=== PATIENT | female | born 1945 | race Caucasian/White ===

== ENCOUNTER → 2018-12-24 | Outpatient (CLI) | payer MEDICARE ==
--- NOTE | 2019-01-04 11:32 | MM ---
Reason for exam: screening (asymptomatic). Last mammogram was performed 3 years and 1 month ago. History: Family history of breast cancer in cousin and breast cancer in aunt. Lumpectomy of the left breast, 1998. Physical Findings: A clinical breast exam by your physician is recommended on an annual basis and results should be correlated with mammographic findings. MG 3D Screening Mammo W/Cad Bilateral CC and MLO view(s) were taken. Prior study comparison: December 07, 2015, mammogram, performed at [place]. December 25, 2012, mammogram, performed at [place]. There are scattered fibroglandular densities. Stable benign calcifications. There is no discrete abnormality. Stable post operative distortion left breast. No significant changes when compared with prior studies. ASSESSMENT: Benign, BI-RAD 2 RECOMMENDATION: Routine screening mammogram of both breasts in 1 year.
== END | disposition home or self-care (01) ==
LOC: RADMAMWWP 13:24
PROVIDERS: ATTEND Internal Medicine
DX: Z12.31 Encounter for screening mammogram for malignant neoplasm of breast (principal)
CPT/HCPCS: 77063; 77067

== ENCOUNTER → 2019-02-19 | Outpatient (CLI) | payer MEDICARE ==
--- NOTE | 2019-02-19 12:48 | XR ---
EXAMINATION TYPE: XR lumbar spine 2 or 3V DATE OF EXAM: 02/19/2019 CLINICAL HISTORY: pain TECHNIQUE: Three views of the lumbar spine are submitted. COMPARISON: None. FINDINGS: There are 5 lumbar type vertebral bodies identified. The lumbar spine shows satisfactory alignment w ithout evidence of acute fracture or dislocation. Vertebral body heights are within normal limits. Severe degenerative disc space narrowing with endplate sclerosis and spondylosis. Severe facet joint arthropathy. Mild curvature convex to the left. The overlying soft tissue appears unremarkable. IMPRESSION: No acute fracture or dislocation is seen in the lumbar spine. ICD 10 NO FRACTURE, INITIAL EVALUATION
--- NOTE | 2019-02-19 12:50 | XR ---
EXAMINATION TYPE: XR cervical spine comp DATE OF EXAM: 02/19/2019 CLINICAL HISTORY: pain COMPARISON: NONE TECHNIQUE: Frontal, lateral, oblique, swimmers, and open mouth view of the cervical spine are obtaine d. FINDINGS: The cervical spine is visualized in its entirety from C1 thru the top of T1 level. It is s atisfactory in alignment without evidence of acute fracture or dislocation. The pre-vertebral soft t issue appears within normal limits. Moderate degenerative disc space narrowing C4-5 through C6-7. Evert tral and dorsal spondylosis. Mild foraminal encroachment at C5-6 on the right. The C1-C2 articulation is unremarkable on the open mouth view. IMPRESSION: No acute fracture or dislocation is seen in the cervical spine.ICD 10 NO FRACTURE, INITI AL EVALUATION
== END | disposition home or self-care (01) ==
LOC: RADXRMAIN 12:12
PROVIDERS: ATTEND Internal Medicine
DX: M47.897 Other spondylosis, lumbosacral region (principal); M47.892 Other spondylosis, cervical region
CPT/HCPCS: 72050; 72100

== ENCOUNTER → 2019-03-12 | Outpatient (CLI) | payer MEDICARE ==
--- NOTE | 2019-03-12 15:15 | MR ---
EXAMINATION TYPE: MR cervical spine wo con DATE OF EXAM: 03/12/2019 COMPARISON: Cervical spine x-ray dated 02/19/2019 HISTORY: Spondylosis cervical region TECHNIQUE: Multiplanar, multisequence images of the cervical spine were acquired. FINDINGS: Cervical spine vertebral bodies heights and alignment are maintained. The cervical cord sig nal is within normal limits. Multilevel disc desiccation is seen. No prevertebral soft tissue swellin g. C2-C3: There is a small broad-based disc bulge without spinal canal stenosis nor neural foraminal lolis rowing. C3-C4: There is a left paracentral disc herniation with uncovertebral hypertrophy and facet arthropat hy contributing to mild to moderate left neural foraminal narrowing and mild spinal canal stenosis. N o right neural foraminal narrowing. C4-C5: There is a broad-based disc bulge narrowing the ventral subarachnoid space in combination with uncovertebral hypertrophy and facet arthropathy creating moderate right neural foraminal narrowing a nd mild left neural foraminal narrowing as well as mild spinal canal stenosis. C5-C6: There is a broad-based disc bulge narrowing the ventral subarachnoid space. This in combinatio n with facet arthropathy and ligamentum flavum buckling create severe left neural foraminal narrowing and mild right neural foraminal narrowing as well as mild spinal canal stenosis. C6-C7: There is a broad-based disc bulge examination with uncovertebral hypertrophy and facet arthrop athy creating mild bilateral neural foraminal narrowing without spinal canal stenosis. C7-T1: There is a central disc herniation slightly narrowing the ventral subarachnoid space without s tracy canal stenosis nor neural foraminal narrowing. IMPRESSION: 1. Small central disc herniation at C7-T1 without spinal canal stenosis nor neural foraminal narrowin g. 2. Left paracentral disc herniation at C3-C4 with degenerative change creating mild to moderate left neural foraminal narrowing and mild spinal canal stenosis. 3. Degenerative disc disease create mild spinal canal stenosis at C4-C5 and C5-C6 as well as variable degrees of neural foraminal narrowing.
== END | disposition home or self-care (01) ==
LOC: RADMRIMAIN 11:10
PROVIDERS: ATTEND Internal Medicine
DX: M48.02 Spinal stenosis, cervical region (principal); M50.21 Other cervical disc displacement, high cervical region; M50.321 Other cervical disc degeneration at C4-C5 level
CPT/HCPCS: 72141

== ENCOUNTER → 2019-03-25 | Outpatient (CLI) | payer MEDICARE ==
[2019-03-25 11:29] VITALS: BP 127/84; PULSE 86; RESP 16
--- NOTE | 2019-03-25 15:00 | P.PAINCN ---
History of Present Illness - Reason for Consult Consult date: 03/25/19 - History of Present Illness initial consultation visit for this 73 years old female with a two-month history of severe neck pain, with radiation to the upper extremity associated with severe numbness and tingling sensation, she denies any initiating event, also patient complaining of some low back pain with radiation to the lower extremity associated with numbness and tingling sensation, the symptoms is constant and increases with any activity, she denies any history of trauma or accident no history of heavy lifting, she is able to ambulate, but she reported that her current symptoms is interfering with her quality of life , and she is using currently pain medication Mendon 5/325 twice a day and she continues to use Cymbalta 60 mg twice a day , she denies any side effect of the medication Past Medical History Past Medical History: Cancer, Fibromyalgia, Hyperlipidemia, Hypertension, Osteoarthritis (OA), Pulmonary Embolus (PE) Additional Past Medical History / Comment(s): Breast Ca 1997, PE 4 yrs. 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 History of Any Multi-Drug Resistant Organisms: None Reported Past Surgical History: Breast Surgery, Cholecystectomy, Orthopedic Surgery Additional Past Surgical History / Comment(s): left breast Lumpectomy; Knee arthroscopy, cataracts removed Past Anesthesia/Blood Transfusion Reactions: No Reported Reaction Past Psychological History: Depression Smoking Status: Current some day smoker Past Alcohol Use History: Occasional Additional Past Alcohol Use History / Comment(s): occasional cigarette Past Drug Use History: None Reported - Past Family History Mother Family Medical History: Cancer Father Family Medical History: Cancer Medications and Allergies Home Medications Medication Instructions Recorded Confirmed Type Atorvastatin [Lipitor] 10 mg PO DAILY 05/09/15 03/25/19 History Lisinopril [Zestril] 10 mg PO DAILY 05/09/15 03/25/19 History Omeprazole 20 mg PO DAILY 05/10/15 03/25/19 History B12/Levomefolate Calcium/B-6 1 each PO DAILY 03/24/19 03/25/19 History [Foltx Tablet] Cholecalciferol (Vitamin D3) 5,000 unit PO DAILY 03/24/19 03/25/19 History [Vitamin D3] DULoxetine HCL [Cymbalta] 60 mg PO DAILY 03/24/19 03/25/19 History Hydroxychloroquine Sulfate 200 mg PO DAILY 03/24/19 03/25/19 History [Plaquenil] Magnesium Oxide [Mag-Ox] 400 mg PO BID 03/24/19 03/25/19 History Metoprolol Tartrate [Lopressor] 25 mg PO BID 03/24/19 03/25/19 History Rivaroxaban [Xarelto] 15 mg PO DAILY 03/24/19 03/25/19 History traZODone HCL 50 mg PO HS PRN 03/24/19 03/25/19 History HYDROcodone/APAP 5-325MG [Mendon 1 tab PO BID PRN 03/25/19 03/25/19 History 5-325] Allergies Allergy/AdvReac Type Severity Reaction Status Date / Time No Known Allergies Allergy Verified 03/25/19 10:55 Physical Exam Vitals: Vital Signs Pulse Resp BP Pulse Ox 03/25/19 10:57 86 16 127/84 93 L Social history : smoker , NO ETOH , NO Illegal drugs use . Review of Systems : - Constitutional : no chills , no fever , no night sweats , - Ears : no ear discharge , no change in hearing -Nose, Mouth ,Throat ; no bleeding gums, no sore throat , no epistaxis , -Cardiovascular : Denies chest pain, , no orthopnea , no palpitation -Respiratory : Denies cough , no dyspnea , no hemoptysis -Gastrointestinal : no change in bowel habits , no coffee-ground emesis . -Genitourinary : No hematuria , no discharge , no incontinence, -Musculoskeletal : No gait dysfunction , report neck pain and numbneness , - Neurological : no ataxia , no tremor , no sezure , -Psychatric : no suicidal ideation no hallucination - Endocrine : no cold intolerence , no polyuria , no polydypsia , -Hematologic : no easy bleeding , no easy brusing , -Allergic / immm : no angioedema , no wheezing ,no allergic rhinitis -Integumentary : no brttle nails , no change hair / nails , no foot/leg ulcers . Physical Examinations : -Constitutional : Cooperative , not in acute distress . -HEENT : nech ; supple , no Lymphadenopathy , no Thyromegaly , :eyes : no icterus, no photophobia . : ENT normal oropharynx , no Thrush - Respiratory : Chest clear to auscultations Bilaterally , no wheezing . - Cardiovascular : regular rate and rhythem , S1 , S2 , no S3 , no S4. - Gastrointestina l: abdomen soft no tenderness , no organomegally . - Genitourinary : Defferred . -Integumentary : No cellulitis , no ulcers , normal skin turgor , no cyanotic . - neurologic : Cranial nerve II to XII intact , no focal neurological deffecit -psychatric : alert , oriented X 3 , appropriate affect , intact judgment and insight . -Lymphatic : no Lymphadenopathy. - musculoskeltal: Antalgic gait Cervical Spine motor stregnth in the deltoid and biceps, normal right side , normal Left side motor stregnth biceps and the wrist extensors normal right side ,normal left side . motor stregnth in the triceps muscle . normal Right side , normal Left side deep tendon reflexes normal at the biceps , normal at Brachioradialis , normal at triceps. Spurling test = positive Neck distraction test= positive Hancock sign= positive positive cervical facet loading test . Lumber spine moter stegnth lower extremities ,thigh and legs 5/5 Right side , 5/5 Left side deep tendon reflexes : normal Knee Jerk , normal ankle Jerk positive lumber facet Loading Test Range of motion of the lumbar spine Flexion 30 degrees, extension 10 degrees strait leg raising test , positive at 30 degree Fabere test positive RT and positive LT . Results Comments: MRI of the cervical spine multilevel disc herniation at C3-C4 and C4 5 disc bulging and facet arthropathy C5 6 disc bulging and facet joint hypertrophy and C6 7 disc herniation and multilevel canal stenosis. Assessment and Plan Plan: Assessment and plan=1-cervical radiculopathy. 2-cervical disc herniation. 3- cervical spondylosis with cervical facet arthropathy 4-lumbar radiculopathy Patient could benefit from cervical epidural steroid injections under fluoroscopy guidance at C7-T1 Patient currently on Xarelto because she had a history of PE , we have to Xarelto for 3 days before we can proceed with the procedure, have to get approval from her primary care doctor.Josephine , also patient could benefit from Lyrica 25 mg twice a day prescription for that given Time with Patient: Greater than 30 PQRS Measure Charge Sheet Measure #130: Documentation of Current Meds in Medical Chart: Patient's medications documented in chart Measure #226: Tobacco Use: Screen & Cessation Intervention: Pt screened for tobacco use AND intervention given Measure #111: Pneumonia Vaccination: Pneumococcal vaccine administered or previously received Measure #47: Advance Care Plan: Advance care planning discussed & documented, pt chose/unable to give Measure #412: Opioid Treatment Agreement: No documentation of signed opioid treatment agreement Measure #408: Opioid Therapy Follow-up Evaluation: Patient had NO f/u eval minimum every 3 months during opioid therapy Measure #317: Preventitive Care & Scrn High Bld Press & F/U: Normal blood pressure, f/u not required Measure #128: Body Mass Index (BMI) Screening & Follow-up: BMI documented ABOVE normal parameters - f/u documented Measure #131: Pain Assessment & Follow-up: Pain positive & plan documented, Follow-up scheduled Measure #431: Unhealthy Alcohol Use Preventative Care & Scrn: Patient not identified as an unhealthy alcohol user PQRS Narrative: Smoking Status Current some day smoker Blood Pressure 127/84 Pain Intensity [Neck] 7 Scale Used Numeric (1 - 10) Hx Alcohol Use (MH) Yes Home Medications: Ambulatory Orders Atorvastatin [Lipitor] 10 mg PO DAILY 05/09/15 Lisinopril [Zestril] 10 mg PO DAILY 05/09/15 Omeprazole 20 mg PO DAILY 05/10/15 B12/Levomefolate Calcium/B-6 [Foltx Tablet] 1 each PO DAILY 03/24/19 Cholecalciferol (Vitamin D3) [Vitamin D3] 5,000 unit PO DAILY 03/24/19 DULoxetine HCL [Cymbalta] 60 mg PO DAILY 03/24/19 Hydroxychloroquine Sulfate [Plaquenil] 200 mg PO DAILY 03/24/19 Magnesium Oxide [Mag-Ox] 400 mg PO BID 03/24/19 Metoprolol Tartrate [Lopressor] 25 mg PO BID 03/24/19 Rivaroxaban [Xarelto] 15 mg PO DAILY 03/24/19 traZODone HCL 50 mg PO HS PRN 03/24/19 HYDROcodone/APAP 5-325MG [Mendon 5-325] 1 tab PO BID PRN 03/25/19
== END ==
LOC: PNWHC3 10:29
PROVIDERS: ATTEND Specialist
DX: M50.11 Cervical disc disorder with radiculopathy, high cervical region (principal); M47.22 Other spondylosis with radiculopathy, cervical region; M46.92 Unspecified inflammatory spondylopathy, cervical region; M54.16 Radiculopathy, lumbar region; F17.200 Nicotine dependence, unspecified, uncomplicated; E78.5 Hyperlipidemia, unspecified; I10 Essential (primary) hypertension; M79.7 Fibromyalgia; M19.90 Unspecified osteoarthritis, unspecified site; F32.9 Major depressive disorder, single episode, unspecified; Z86.711 Personal history of pulmonary embolism; Z71.6 Tobacco abuse counseling; Z85.9 Personal history of malignant neoplasm, unspecified; Z79.899 Other long term (current) drug therapy; Z79.01 Long term (current) use of anticoagulants
CPT/HCPCS: 99211

== ENCOUNTER 2019-04-07 08:25 | Day surgery (SDC) | payer MEDICARE ==
[2019-03-31 14:28] VITALS: BMI 29.9
[2019-04-07] MEDS ORDERED: LACTATED RINGERS 1,000 ML IV SCH (09:02)
[2019-04-07 09:09] VITALS: TEMP 97.2
--- NOTE | 2019-04-07 10:04 | P.PCN ---
Date of Procedure: 04/07/19 Procedure(s) Performed: PREOPERATIVE DIAGNOSIS: Cervical radiculopathy Cervical degenerative disc disease POSTOPERATIVE DIAGNOSIS: Cervical radiculopathy Cervical degenerative disc disease PROCEDURE Cervical Epidural steroid injection under fluoroscopic guidance at the C7-T1 interspace using right paramedian approach Cervical epidurogram ANESTHESIA: Local with 1% lidocaine 3 ml and IV sedation with Versed 2 mg and 100 g of fentanyl EBL: Minimal PROCEDURE INDICATION: The patient presents with cervical radicular symptoms unresponsive to conservative treatment. This is her second cervical epidural steroid injection. She reports significant relief of her symptoms from her first 2 injections. PROCEDURE DESCRIPTION / TECHNIQUE: The patient was seen and identified in the preoperative area. Risks, benefits, complications including but not limited to infections ,bleeding ,allergic reaction to the medications ,nerve damage and incomplete pain relief, and alternatives were discussed with the patient. The patient agreed to proceed with the procedure and signed the consent. IV was started, and vital signs were stable. Patient was taken to the OR and time out was completed. The patient was placed in the prone position on procedure table and a pillow was placed under the ch est area.. The cervical area was prepped and draped in the usual sterile fashion. Conscious sedation was used during the procedure to decrease patients anxiety. Vital signs was monitored during the entire procedure. Using anterior-posterior fluoroscopy, the C7-T1 interlaminar space was identified and the skin over this site was marked and then infiltrated with 1% lidocaine subcutaneously. Subsequently, a 20-gauge Tuohy epidural needle was inserted and advanced toward the epidural space using the loss of resistance technique and guided by AP and 50 oblique fluoroscopy. The correct needle p osition in the epidural space was verified. Initial aspiration revealed heme which was also present on injection of contrast. The needle was withdrawn and repositioned and the epidural space was reentered. After negative aspiration for blood and CSF and in the absence of paresthesias, Isovue 200 2 mL's was injected under live fluoroscopy with good epidural spread. After negative aspiration, a 5 ml mixture containing 10 mg of dexamethasone, 3 mL of preservative free normal saline and 1 mL of 1% lidocaine was injected. Needle was withdrawn intact, skin was cleansed, and bandages were applied. COMPLICATIONS: None DISPOSITION / PLANS: The patient was placed in a supine position and transferred to the recovery area in a stable condition for observation. There was no evidence of lower extremity motor or sensory deficit after the procedure. Patient was discharged from the recovery room after meeting discharge criteria. Home discharge instructions were given to the patient by the staff. The patient will schedule a repeat procedure in 4 weeks.
[2019-04-07] MEDS ORDERED: IV FLUID CONTINUATION 1,000 ML IV ONE ×2 (10:13)
[2019-04-07 10:29] VITALS: BP 150/88; PULSE 80; RESP 18
--- NOTE | 2019-04-07 10:31 | FL ---
EXAMINATION TYPE: FL guided pain mgmt statistic DATE OF EXAM: 04/07/2019 CLINICAL HISTORY: Neck and back pain. TECHNIQUE: Fluoroscopy. COMPARISON: None. FINDINGS: Fluoroscopic guidance was provided during pain relief procedure performed by Dr. Vaz. A t otal of 13 seconds of fluoroscopic time was utilized during the procedure and 5 spot images are acqui red. Images acquired shows needle localization with contrast injection near cervical thoracic juncti on. IMPRESSION: As Above.
== END 2019-04-07 10:50 | disposition home or self-care (01) ==
LOC: ORPAIN 08:25
PROVIDERS: ATTEND Anesthesiology
DX: M50.10 Cervical disc disorder with radiculopathy, unspecified cervical region (principal); M47.22 Other spondylosis with radiculopathy, cervical region; M54.16 Radiculopathy, lumbar region; M79.7 Fibromyalgia; E78.5 Hyperlipidemia, unspecified; I10 Essential (primary) hypertension; M19.90 Unspecified osteoarthritis, unspecified site; Z86.711 Personal history of pulmonary embolism; Z85.3 Personal history of malignant neoplasm of breast; F32.9 Major depressive disorder, single episode, unspecified; F17.210 Nicotine dependence, cigarettes, uncomplicated; Z79.899 Other long term (current) drug therapy; Z79.01 Long term (current) use of anticoagulants
CPT/HCPCS: 62321; J2250; J1100; J3010; Q9966; 99152

== ENCOUNTER 2019-04-28 14:22 | Observation (INO) | payer MEDICARE ==
[2019-04-28] MEDS ORDERED: SODIUM CHLORIDE 0.9% 500 ML 500 ML IV STA (15:13)
[2019-04-28 15:25] LABS: Basophils # (A) 0.1 k/uL (0-0.2); Basophils % (A) 1 %; Eosinophils # (A) 0.1 k/uL (0-0.7); Eosinophils % (A) 2 %; HCT 43.2 % (34.0-46.0); HGB 14.5 gm/dL (11.4-16.0); Lymphocytes # (A) 2.7 k/uL (1.0-4.8); Lymphocytes % (A) 30 %; MCH 32.3 pg (25.0-35.0); MCHC 33.5 g/dL (31.0-37.0); MCV 96.4 fL (80.0-100.0); Mean Platelet Volume 6.6; Monocytes # (A) 0.7 k/uL (0-1.0); Monocytes % (A) 8 %; Neutrophils % (A) 57 %; Platelet Count 254 k/uL (150-450); RBC 4.48 m/uL (3.80-5.40); RDW 13.6 % (11.5-15.5); WBC 8.8 k/uL (3.8-10.6)
--- NOTE | 2019-04-28 15:25 | ED ---
General Adult HPI - General Chief complaint: Weakness Stated complaint: falling/weakness Time Seen by Provider: 04/28/19 14:40 Source: patient, family, RN notes reviewed Mode of arrival: wheelchair Limitations: no limitations - History of Present Illness Initial comments: Chief complaint and history of present illness is a 73-year-old female here with her brother. The patient reports for the past 3-4 months been having progressively worsening muscle aches and pains starting from her right cervical region down her right arm. She states she had an epidural shot just last week with no improvement. More recently i.e. over the past 3 months been having lumbar discomfort. Yesterday she was sitting in her wheelchair seat leaned forward and fell onto both knees. Complaining of pain to both knees and hips. Denies any injury or head or neck. Patient reports that she had get help to get up. Does not strong enough because of generalized weakness in her lower extremities to stand on her own. After she was helped to bed she was able to transfer from her bed to her chair from her chair to the toilet and back to bed again. - Related Data Home Medications Medication Instructions Recorded Confirmed Atorvastatin [Lipitor] 10 mg PO HS 05/09/15 04/28/19 Lisinopril [Zestril] 10 mg PO HS 05/09/15 04/28/19 Omeprazole 20 mg PO HS 05/10/15 04/28/19 B12/Levomefolate Calcium/B-6 1 tab PO HS 03/24/19 04/28/19 [Foltx Tablet] Cholecalciferol (Vitamin D3) 5,000 unit PO HS 03/24/19 04/28/19 [Vitamin D3] DULoxetine HCL [Cymbalta] 60 mg PO HS 03/24/19 04/28/19 Magnesium Oxide [Mag-Ox] 400 mg PO TID 03/24/19 04/28/19 Metoprolol Tartrate [Lopressor] 25 mg PO BID 03/24/19 04/28/19 Rivaroxaban [Xarelto] 15 mg PO HS 03/24/19 04/28/19 HYDROcodone/APAP 5-325MG [[place] 1 tab PO BID PRN 03/25/19 04/28/19 5-325] Diphenox-Atrop 2.5-0.025 mg 1 tab PO DIRECTED PRN 03/31/19 04/28/19 [Lomotil] traZODone HCL [Desyrel] 50 mg PO HS PRN 03/31/19 04/28/19 Pregabalin [Lyrica] 25 mg PO BID 04/28/19 04/28/19 Allergies Allergy/AdvReac Type Severity Reaction Status Date / Time No Known Allergies Allergy Verified 04/28/19 15:16 Review of Systems ROS Statement: Those systems with pertinent positive or pertinent negative responses have been documented in the HPI. Review of systems. Patient denies any headache or visual acuity changes she has chronic neck discomfort on the right side, the right arm and to the right hand complains of weakness in the right hand hard to hold things. This been ongoing for several months. She did have an epidural shot just several days ago. She's been following up with chronic pain management has been on Taylor without relief. The patient denies any difficulty swallowing no nausea no vomiting. She has low back pain across the whole lumbar section which goes equally down both legs. She states her knees hurt from falling on them yesterday complains of weakness occasional tingling occasional numbness. All systems are reviewed. Past medical problems significant for breast cancer 20 years ago treated with lumpectomy and radiation. She diagnosed with fibromyalgia 4 years ago by her family doctor. She's had GERD, hyperlipidemia hypertension. 7 from osteoarthritis, 4 years ago she had pulmonary embolus and she been on Xarelto since then. The patient has been diagnosed with an autoimmune disease without any specific mention other than that. Her surgeries as noted above lumpectomy, cholecystectomy, tonsillectomy, left knee arthroscopy, cataracts. The patient's family history significant for mother had pancreatic and melanoma. The patient's father had bladder cancer grandfather rectal carcinoma. Both she and her brother state they do get the colonoscopies regularly. The patient denies any ALLERGIES. She quit smoking 4 years ago. Drinks alcohol one vodka drink per day. ROS Other: All systems not noted in ROS Statement are negative. Past Medical History Past Medical History: Cancer, Fibromyalgia, GERD/Reflux, Hyperlipidemia, Hypertension, Osteoarthritis (OA), Pulmonary Embolus (PE) Additional Past Medical History / Comment(s): Breast Ca 1997, hx PE, neck pain down right arm, down spine & both legs, some kind of clotting gene per pt., migraines, IBS, History of Any Multi-Drug Resistant Organisms: None Reported Past Surgical History: Breast Surgery, Cholecystectomy, Orthopedic Surgery, Tonsillectomy Additional Past Surgical History / Comment(s): left breast Lumpectomy; left Knee arthroscopy, kip cataracts removed Past Anesthesia/Blood Transfusion Reactions: No Reported Reaction Past Psychological History: Anxiety, Depression Smoking Status: Former smoker - Past Family History Mother Family Medical History: Cancer Father Family Medical History: Cancer General Exam - General Exam Comments Initial Comments: General: The patient is awake and alert, here because of chronic weakness and new pain to her knees at hand: On her knees yesterday. Vital signs show temperature 97.9 pulse 95 respiratory rate 16 pulse ox 90% room air blood pressure 119/80. Eye: Pupils are equal, round and reactive to light, extra-ocular movements are intact; there is normal conjunctiva bilaterally. No signs of icterus. Evidence of bilateral cataract removed. Ears, nose, mouth and throat: There are moist mucous membranes and no oral lesions. Neck: Chronic right cervical neck discomfort no worse today than before. She has been seeing a pain management doctor and recently received a shot IV epidural without significant improvement. Cardiovascular: There is a regular rate and rhythm. No murmur, rub or gallop is appreciated. Respiratory: Lungs are clear to auscultation, respirations are non-labored, breath sounds are equal. No wheezes, stridor, rales, or rhonchi. Gastrointestinal: Soft, non-distended, non-tender abdomen without masses or organomegaly noted. There is no rebound or guarding present. No CVA tenderness. Bowel sounds are unremarkable. Back: Patient complains of pain across the lumbar spine from [id number] equally distributed down both legs with numbness and tingling to her feet she fell out of her wheelchair yesterday had difficulty getting up because of poor strength. Musculoskeletal: Weak flexion of her left ankle and foot. Lumbar pain, chronic with bilateral knee discomfort, swelling right knee negative for internal derangement by testing. Neurovascular status to the feet. Intact. No pitting edema noted. Neurological: Neurologically intact except for relative weakness with left ankle extension. Chronic lumbar pain, chronic right cervical pain. Complains of weakness and right hand. Environmental Compliance Specialist are equal bilaterally. Skin: Skin is warm and dry and no rashes or lesions are noted. Psychiatric: Cooperative, Limitations: no limitations Course Vital Signs 04/28/19 04/28/19 14:24 15:52 Temperature 97.9 F Pulse Rate 95 87 Respiratory 16 18 Rate Blood Pressure 119/80 O2 Sat by Pulse 98 95 Oximetry Medical Decision Making - Medical Decision Making Medical decision making; this is a 71-year-old female here for complaint of frequent falls, 3 times yesterday. Too weak to get off the floor on her own. Needed her brother's assistance. Gets around by a wheelchair states would not build walk without one. Labs show white count of 8.8 hemoglobin 14 hematocrit 43 with an INR 1.2. Potassium 4.0 with a BUN of 18 creatinine 01.05 the GFR 53. Glucose 106. Plasma lactic acid is normal at 1.2. TSH normal at 2.0. Troponin less than 0.012. X-ray of both knees was done and reviewed by radiologist his impression is no acute fracture dislocation. Correlate for crystal deposition arthropathy. X-rays of the pelvis was done reviewed by radiologist and his final impression is there is no acute fracture dislocation in the pelvis. As read by CT of the lumbar spine was done and reviewed by radiologist and his impression is; no vertebral compression collapse or malalignment. There is advanced degenerative disc disease throughout as well as heterotopic facet arthropathy and Jersey's disease. Variable mild spinal canal stenosis due to posterior dis c bulges. Variable neurao foraminal stenosis as outlined in the report, severe on the left L5-S1. Bile duct dilated 1.1 cm probably secondary to post cholecystectomy status plus patient age. This can be confirmed with a normal alkaline phosphatase and bilirubin levels. Tiny hiatal hernia and sigmoid diverticulosis. As read by Dr. Rodriguez These reports were shared with the patient and brother at bedside. Patient is requesting pain medication. She can't take Motrin or Toradol because of the blood thinner she's on for previous PE. The patient will receive Dilaudid 0.5 mg IV push Case discussed with Dr. Marino. Patient admitted to her service with consultation from orthopedic surgery, Dr. Conway. Admitting diagnosis is spinal stenosis or neurogenic claudication. She wants the patient to be on site Medrol 60 mg IV push every 6 hours. - Lab Data Result diagrams: 04/28/19 14:49 04/28/19 14:49 Lab Results 04/28/19 04/28/19 04/28/19 Range/Units 14:49 14:49 14:49 WBC 8.8 (3.8-10.6) k/uL RBC 4.48 (3.80-5.40) m/uL Hgb 14.5 (11.4-16.0) gm/dL Hct 43.2 (34.0-46.0) % MCV 96.4 (80.0-100.0) fL MCH 32.3 (25.0-35.0) pg MCHC 33.5 (31.0-37.0) g/dL RDW 13.6 (11.5-15.5) % Plt Count 254 (150-450) k/uL Neutrophils % 57 % Lymphocytes % 30 % Monocytes % 8 % Eosinophils % 2 % Basophils % 1 % Neutrophils # 5.0 (1.3-7.7) k/uL Lymphocytes # 2.7 (1.0-4.8) k/uL Monocytes # 0.7 (0-1.0) k/uL Eosinophils # 0.1 (0-0.7) k/uL Basophils # 0.1 (0-0.2) k/uL PT (9.0-12.0) sec INR (<1.2) APTT (22.0-30.0) sec Sodium 138 (137-145) mmol/L Potassium 4.0 (3.5-5.1) mmol/L Chloride 99 (98-107) mmol/L Carbon Dioxide 30 (22-30) mmol/L Anion Gap 9 mmol/L BUN 18 H (7-17) mg/dL Creatinine 1.05 H (0.52-1.04) mg/dL Est GFR (CKD-EPI)AfAm 61 (>60 ml/min/1.73 sqM) Est GFR (CKD-EPI)NonAf 53 (>60 ml/min/1.73 sqM) Glucose 106 H (74-99) mg/dL Plasma Lactic Acid Evert 1.2 (0.7-2.0) mmol/L Calcium 9.9 (8.4-10.2) mg/dL Total Bilirubin 0.8 (0.2-1.3) mg/dL AST 40 H (14-36) U/L ALT 36 (9-52) U/L Alkaline Phosphatase 105 (38-126) U/L Troponin I (0.000-0.034) ng/mL Total Protein 7.0 (6.3-8.2) g/dL Albumin 4.1 (3.5-5.0) g/dL TSH 2.050 (0.465-4.680) mIU/L 04/28/19 04/28/19 Range/Units 14:49 14:49 WBC (3.8-10.6) k/uL RBC (3.80-5.40) m/uL Hgb (11.4-16.0) gm/dL Hct (34.0-46.0) % MCV (80.0-100.0) fL MCH (25.0-35.0) pg MCHC (31.0-37.0) g/dL RDW (11.5-15.5) % Plt Count (150-450) k/uL Neutrophils % % Lymphocytes % % Monocytes % % Eosinophils % % Basophils % % Neutrophils # (1.3-7.7) k/uL Lymphocytes # (1.0-4.8) k/uL Monocytes # (0-1.0) k/uL Eosinophils # (0-0.7) k/uL Basophils # (0-0.2) k/uL PT 12.1 H (9.0-12.0) sec INR 1.2 H (<1.2) APTT 34.2 H (22.0-30.0) sec Sodium (137-145) mmol/L Potassium (3.5-5.1) mmol/L Chloride (98-107) mmol/L Carbon Dioxide (22-30) mmol/L Anion Gap mmol/L BUN (7-17) mg/dL Creatinine (0.52-1.04) mg/dL Est GFR (CKD-EPI)AfAm (>60 ml/min/1.73 sqM) Est GFR (CKD-EPI)NonAf (>60 ml/min/1.73 sqM) Glucose (74-99) mg/dL Plasma Lactic Acid Evert (0.7-2.0) mmol/L Calcium (8.4-10.2) mg/dL Total Bilirubin (0.2-1.3) mg/dL AST (14-36) U/L ALT (9-52) U/L Alkaline Phosphatase (38-126) U/L Troponin I <0.012 (0.000-0.034) ng/mL Total Protein (6.3-8.2) g/dL Albumin (3.5-5.0) g/dL TSH (0.465-4.680) mIU/L Disposition Clinical Impression: Spinal stenosis, lumbar region with neurogenic claudication Disposition: ADMITTED IP TO THIS [facility] Condition: Serious Is patient prescribed a controlled substance at d/c from ED?: No Referrals: Jayden Burton MD [Primary Care Provider] - 1-2 days
[2019-04-28 15:33] LABS: Albumin 4.1 g/dL (3.5-5.0); Calcium 9.9 mg/dL (8.4-10.2); INR 1.2 (<1.2); Partial Thromboplastin Time 34.2 sec (22.0-30.0); Prothrombin Time 12.1 sec (9.0-12.0); Total Bilirubin 0.8 mg/dL (0.2-1.3)
--- NOTE | 2019-04-28 15:50 | CT ---
EXAMINATION TYPE: CT lumbar spine wo con DATE OF EXAM: 04/28/2019 COMPARISON: None HISTORY: 73-year-old female Weakness and multiple falls TECHNIQUE: Contiguous axial scanning of the bar spine without IV contrast. Coronal and sagittal recon structions performed. CT DLP: 822.9 mGycm Automated exposure control for dose reduction was used. FINDINGS: Bile duct dilated up to 1.1 cm. Dense band of atelectasis at the posterior right base. Tiny hiatal hernia. Sigmoid diverticulosis. No prevertebral or paravertebral soft tissue abnormality otherwise seen. There is generalized osteopenia. Hypertrophic facet arthropathy throughout. 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 Degenerated, desiccated, and diffusely bulging discs at multiple levels. Vertebral body heights are preserved and alignment is maintained. Bulging disc contribute to mild spinal canal stenoses at L2-L5 levels. On the left, changes result in moderate to severe neural foraminal narrowing at L4-L5, severe at L5-S 1 and mild at additional levels. On the right, changes both in moderate neuroforaminal narrowing at L3-L4 and L4-L5 and mild at additi onal levels. Levoconvex curvature could be on a degenerative basis or could be due to muscle spasm or patient posi tioning. IMPRESSION: 1. NO VERTEBRAL COMPRESSION COLLAPSE OR MALALIGNMENT. 2. ADVANCED DEGENERATIVE DISC DISEASE THROUGHOUT WELL HYPERTROPHIC FACET ARTHROPATHY AND BAASTR UP'S DISEASE. 3. VARIABLE MILD SPINAL CANAL STENOSIS DUE TO POSTERIOR DISC BULGES. 4. VARIABLE NEURAL FORAMINAL STENOSES OUTLINED ABOVE, SEVERE ON THE LEFT L5-S1. 5. BILE DUCT DILATED AT 1.1 CM PROBABLY SECONDARY TO POSTCHOLECYSTECTOMY STATUS AND PATIENT AGE. THIS CAN BE CONFIRMED WITH NORMAL ALKALINE PHOSPHATASE AND BILIRUBIN LEVELS. 6. TINY HIATAL HERNIA AND SIGMOID DIVERTICULOSIS.
--- NOTE | 2019-04-28 15:54 | XR ---
EXAMINATION TYPE: XR pelvis AP view DATE OF EXAM: 04/28/2019 CLINICAL HISTORY: Fall with subsequent pelvic pain TECHNIQUE: A single AP view of the pelvis is obtained. COMPARISON: None. FINDINGS: There is no acute fracture/dislocation evident in the pelvis. The hip and sacroiliac join ts appear symmetric with mild bilateral femoral acetabular arthropathy demonstrated as acetabular jean marie f sclerosis and joint space narrowing. The overlying soft tissue appears unremarkable. IMPRESSION: There is no acute fracture or dislocation in the pelvis.
--- NOTE | 2019-04-28 16:05 | XR ---
Bilateral knees HISTORY: Trauma and pain 3 views of each knee are submitted. Underlying arthropathy changes are present, no evident joint effusion. Probable phlebolith present shannon perior to the right patella. Bone mineralization is reduced. Chondrocalcinosis along the menisci. IMPRESSION: No acute fracture or dislocation. Correlate for crystal deposition arthropathy.
[2019-04-28 16:45] LABS: Appearance,Urine Clear (Clear); Bilirubin,Urine Negative (Negative); Blood,Urine Negative (Negative); Color,Urine Yellow; Glucose,Urine (UA) Negative (Negative); Ketones,Urine Negative (Negative); Leukocyte Esterase,Urine Negative (Negative); Nitrite,Urine Negative (Negative); Protein,Urine Trace (Negative); Specific Gravity,Urine 1.022 (1.001-1.035); Urobilinogen,Urine <2.0 mg/dL (<2.0)
[2019-04-28] MEDS ORDERED: HYDROmorphone 0.5 MG/0.5 ML SYRINGE IVP STA (16:51)
[2019-04-28] MEDS ORDERED: NALOXONE 0.4 MG/ML 1 ML VIAL IV PRN (16:58)
[2019-04-28] MEDS ORDERED: HYDROmorphone 0.5 MG/0.5 ML SYRINGE IVP PRN (16:58)
[2019-04-28] MEDS: methylPREDNISolone SOD SUCCI 125 MG/2 ML VIAL IV SCH ×2 (17:33→22:46)
[2019-04-28 18:18] VITALS: BMI 29.0
[2019-04-28] MEDS ORDERED: DIPHENOX-ATROP 2.5-0.025 MG 1 EACH TAB PO PRN (19:37)
[2019-04-28] MEDS ORDERED: traZODone HCL 50 MG TAB PO PRN (19:37)
[2019-04-28] MEDS ORDERED: HYDROmorphone 1 MG/ML 1 ML SYRINGE IVP PRN (19:41)
[2019-04-28] MEDS: ATORVASTATIN 10 MG TAB PO SCH (21:54)
[2019-04-28] MEDS: FAMOTIDINE 20 MG TAB PO SCH (21:54)
[2019-04-28] MEDS: FOLIC ACID-VIT B COMPLEX-VIT C 1 CAP PO SCH (21:54)
[2019-04-28] MEDS: DULoxetine HCL 60 MG CAPSULE.DR PO SCH (21:54)
[2019-04-28] MEDS: CHOLECALCIFEROL 1,000 UNIT TAB PO SCH (21:54)
[2019-04-28] MEDS: LISINOPRIL 10 MG TAB PO SCH (21:55)
[2019-04-28] MEDS: PANTOPRAZOLE 40 MG TABLET PO SCH (21:55)
[2019-04-28] MEDS: METOPROLOL TARTRATE 25 MG TAB PO SCH (21:55)
[2019-04-28] MEDS: MAGNESIUM OXIDE 400 MG TAB PO SCH (21:55)
[2019-04-28] MEDS: HYDROcodone/APAP 7.5-325MG 1 EACH TAB PO PRN (21:56)
[2019-04-28] MEDS: PREGABALIN 25 MG CAP PO SCH (22:46)
[2019-04-29] MEDS: methylPREDNISolone SOD SUCCI 125 MG/2 ML VIAL IV SCH ×4 (05:52→23:23)
[2019-04-29] MEDS: HYDROcodone/APAP 7.5-325MG 1 EACH TAB PO PRN ×4 (05:52→23:24)
[2019-04-29 07:52] LABS: Albumin 3.8 g/dL (3.5-5.0); Calcium 10.1 mg/dL (8.4-10.2); Potassium 4.5 mmol/L (3.5-5.1); Total Bilirubin 0.9 mg/dL (0.2-1.3); Total Protein 6.7 g/dL (6.3-8.2)
[2019-04-29] MEDS: FAMOTIDINE 20 MG TAB PO SCH (10:15)
[2019-04-29] MEDS: MAGNESIUM OXIDE 400 MG TAB PO SCH ×3 (10:15→23:23)
[2019-04-29] MEDS: METOPROLOL TARTRATE 25 MG TAB PO SCH ×2 (10:16→20:23)
[2019-04-29] MEDS: PREGABALIN 25 MG CAP PO SCH ×2 (10:16→20:23)
--- NOTE | 2019-04-29 10:44 | P.CNOR ---
History of Present Illness - HPI Consult date: 04/29/19 Consult reason: low back pain, neck pain History of present illness: Patient has 73-year-old pleasant woman with chronic history of neck pain and low back pain. We're counseled her in regards to spinal stenosis. Apparently the patient was having some flareup of her issues at her lower back and had all in a number of times yesterday onto her knees from her chair and was able to get up off the ground. SHE FELT SIGNIFICANTLY WEaK AND PRESENTED TO THE HOSPITAL IN THIS REGARD. She says that today she is actually feeling somewhat better and her strength has improved. She has not yet been out of bed. SHE HAS A HISTORY OF NECK PAIN AND LOW BACK PAIN WITH LEG RADICULAR SYMPTOMS AT HER UPPER AND LOWER EXTREMITIES. SHE ALSO HAS HISTORY OF FIBROMYALGIA. SHE HAS BEEN TREATED CONSERVATIVELY OUTPATIENT WITH INTERVENTIONAL PAIN MANAGEMENT THROUGH [facility] AND HAD INJECTIONS AT HER CERVICAL SPINE WITH INTERVENTIONAL PAIN MANAGEMENT FROM [place] WITHIN THE PAST MONTH. SHE HAS BEEN TREATED MEDICALLY WITH HER PRIMARY CARE PHYSICIAN WELL. She denies any chest pain shortness of breath. She denies any fevers chills. She tells me that she feels weak all over from her neck down to her lower back and in her bilateral lower extremities with numbness. Her brother is with her bedside and said that she he had to help her up off the floor at her home she was unable to get up on her own yesterday. She denies any loss of consciousness. She'll keller presented to the hospital in regard to her frequent falls inability to get up and to check out her hips and knees to see if there were broken. She workup in the emergency room which showed no evidence of any fracture. She was found have evidence of stenosis at her low back with significant degenerative spondylosis. Review of Systems As stated per HPI. She denies any changes in bowel bladder function. Past Medical History Past Medical History: Cancer, Fibromyalgia, GERD/Reflux, Hyperlipidemia, Hypertension, Osteoarthritis (OA), Pulmonary Embolus (PE) Additional Past Medical History / Comment(s): Breast Ca 1997, hx PE, neck pain down right arm, down spine & both legs, some kind of clotting gene per pt., migraines, IBS, History of Any Multi-Drug Resistant Organisms: None Reported Past Surgical History: Breast Surgery, Cholecystectomy, Orthopedic Surgery, Tonsillectomy Additional Past Surgical History / Comment(s): left breast Lumpectomy; left Knee arthroscopy, kip cataracts removed Past Anesthesia/Blood Transfusion Reactions: No Reported Reaction Past Psychological History: Anxiety, Depression Smoking Status: Former smoker Past Alcohol Use History: Daily Additional Past Alcohol Use History / Comment(s): quit smoking 4 yrs ago, smoked for 30 yrs, < 1 PPD Past Drug Use History: None Reported - Past Family History Mother Family Medical History: Cancer Father Family Medical History: Cancer Medications and Allergies Home Medications Medication Instructions Recorded Confirmed Type Atorvastatin [Lipitor] 10 mg PO HS 05/09/15 04/28/19 History Lisinopril [Zestril] 10 mg PO HS 05/09/15 04/28/19 History Omeprazole 20 mg PO HS 05/10/15 04/28/19 History B12/Levomefolate Calcium/B-6 1 tab PO HS 03/24/19 04/28/19 History [Foltx Tablet] Cholecalciferol (Vitamin D3) 5,000 unit PO HS 03/24/19 04/28/19 History [Vitamin D3] DULoxetine HCL [Cymbalta] 60 mg PO HS 03/24/19 04/28/19 History Magnesium Oxide [Mag-Ox] 400 mg PO TID 03/24/19 04/28/19 History Metoprolol Tartrate [Lopressor] 25 mg PO BID 03/24/19 04/28/19 History Rivaroxaban [Xarelto] 15 mg PO HS 03/24/19 04/28/19 History HYDROcodone/APAP 5-325MG [[place] 1 tab PO BID PRN 03/25/19 04/28/19 History 5-325] Diphenox-Atrop 2.5-0.025 mg 1 tab PO DIRECTED PRN 03/31/19 04/28/19 History [Lomotil] traZODone HCL [Desyrel] 50 mg PO HS PRN 03/31/19 04/28/19 History Pregabalin [Lyrica] 25 mg PO BID 04/28/19 04/28/19 History Allergies Allergy/AdvReac Type Severity Reaction Status Date / Time No Known Allergies Allergy Verified 04/28/19 15:16 Physical Examination Osteopathic Statement: *. No significant issues noted on an osteopathic structural exam other than those noted in the History and Physical/Consult. - L Spine: dermatomal strength & reflexes bilateral Strength: hip flexion: 5/5 (At her neck she is nontender to palpation. She is some paravertebral spasm bilaterally. She has good range at her neck and bilateral upper extremities with good 5 out of 5 strength. Her low back nontender to palpation of the midline. Does have some paravertebral spasm over the top of her cleats. She has sustained a/5 flexion and EHL intact she is able lift her legs up off the bed independently. She is no. Interlocks rotation of her hips. Her pelvis stable to rock. Abdomen soft nontender. Chest is good excursion deep inspection X patient. HEENT normocephalic a dramatic. There is no hyperreflexia. There is negative Mikayla's. No neural tension signs.) Results She has a MRI of her cervical spine from January of this year as well as cervical and lumbar x-rays from that time. She also has new lumbar computed tomography scan done yesterday as well as x-rays of her pelvis and knees done yesterday. I do not see any evidence of fracture or dislocation. She has evidence of osteophyte his bilateral knees at the patellofemoral joints and the medial compartments. Her lumbar spine has significant degenerative changes throughout with disc height loss at L2-3 L3 4 L4 5 and L5-S1. She has facet arthrosis with evidence of stenosis particularly at L4 5 and moderately L3 4 and L5-S1. Her cervical MRI from January of this year shows degenerative disc disease at multiple levels with some disc protrusion and some foraminal encroachment with stenosis at C56 and is somewhat at C45 and C6 7. - Labs Labs: Abnormal Lab Results - Last 24 Hours (Table) 04/28/19 04/28/19 04/28/19 Range/Units 14:49 14:49 16:30 PT 12.1 H (9.0-12.0) sec INR 1.2 H (<1.2) APTT 34.2 H (22.0-30.0) sec BUN 18 H (7-17) mg/dL Creatinine 1.05 H (0.52-1.04) mg/dL Glucose 106 H (74-99) mg/dL AST 40 H (14-36) U/L Urine Protein Trace H (Negative) 04/29/19 Range/Units 07:15 PT (9.0-12.0) sec INR (<1.2) APTT (22.0-30.0) sec BUN (7-17) mg/dL Creatinine (0.52-1.04) mg/dL Glucose 168 H (74-99) mg/dL AST 52 H (14-36) U/L Urine Protein (Negative) H & H 04/28/19 Range/Units 14:49 Hgb 14.5 (11.4-16.0) gm/dL Hct 43.2 (34.0-46.0) % Coagulation 04/28/19 Range/Units 14:49 INR 1.2 H (<1.2) Result Diagrams: 04/28/19 14:49 04/29/19 07:15 - Diagnostic results Hip MRI: image reviewed Knee x-ray: report reviewed, image reviewed Cervical MRI with contrast: report reviewed, image reviewed CT Scan - lumbar: report reviewed, image reviewed (As stated above in the review) Assessment and Plan Assessment: Acute on chronic low back pain Bilateral lower extremity radiculopathy Frequent falls Spinal stenosis with disc degeneration and diffuse spondylosis throughout lumbar spine Chronic neck pain with degenerative disc disease and spondylosis through cervical spine Fibromyalgia Plan: Acute on chronic low back pain Bilateral lower extremity radiculopathy Frequent falls Spinal stenosis with disc degeneration and diffuse spondylosis throughout lumbar spine Chronic neck pain with degenerative disc disease and spondylosis through cervical spine Fibromyalgia The patient is having a flareup of her chronic issues at her low back and her neck and is having great difficulty with her mobility. She was started on some steroid medication yesterday and feels that she is making some improvement. I think is appropriate for her. She will likely need continued tapering dose of oral steroid when she is able to be discharged. She is not having any acute neurologic loss at her upper or lower extremities. Does have spondylosis and evidence of stenosis at her cervical and lumbar spines. She is not requiring any acute surgical intervention and we do not have any plans for surgery on this admission. I discussed this with her and her brother at length and they're agreeable. She would like to try to continue with conservative treatment. States that she is not been overly satisfied with pain management service here at [facility] and is hoping to seek other pain management service an outpatient basis and I think that is reasonable for her. For now she should continue with conservative treatment as well as her steroid course. She should have a oral tapering dose of steroid once she is discharged and we can follow her up on an outpatient basis in the next 2 weeks for recheck evaluation. She should also have follow-up with pain management service after d ischarge. I would like her to start physical therapy here in Hospital for transfer training mobility endurance and strengthening as well. Certainly and number of her issues stem from her fibromyalgia as well and this being addressed medically.
--- NOTE | 2019-04-29 13:56 | P.HPIM ---
History of Present Illness H&P Date: 04/29/19 Chief Complaint: Muscle aches, neck pain radiation down the right arm This is a 73-year-old female patient of Dr. Burton with past medical history of multilevel disc herniation C3-C4, C4-5 disc bulging and facet arthropathy C5 6 disc bulging and facet joint hypertrophy, C6 7 disc herniation multilevel canal stenosis. She has been under the care of pain management and underwent cervical epidural steroid injection C7-T1 on April [address] Vaz. Patient gives history that about 4 months ago she started having pain in her neck and then it gradually went into her thoracic area. At that initial time, her legs did not cause any problem she did not have any low back pain. She subsequently developed all over muscle aches. She was recently on prednisone 2 weeks ago for back lumbar pain. She now has pain in both lower extremities and more so on the left with numbness. She does have lumbar pain. Yesterday, she was sitting in her wheelchair and leaned forward falling onto both knees and she could not give out. She states she's had 3 episodes where she was unable to get up. She has started using a walker at home. Patient was started on Lyrica 25 mg twice daily 1-1/2 weeks ago. She denies head injury. History of breath breast cancer 20 years ago with lumpectomy and radiation, fibromyalgia, gastroesophageal reflux disease, hypertension, hyperlipidemia, generalized osteoarthritis, pulmonary embolus 4 years ago on Xarelto, migraine headaches, irritable bowel syndrome, remote history of tobacco use and dependence, daily alcohol intake. Patient presented to [facility] emergency center for evaluation. Temperature 97.9 heart rate 95, respirations 16, pulse ox 98% on room air, blood pressure 119/80. CBC unremarkable. BUN 18 creatinine 1.05, blood sugar 106. Lactic acid 1.2. TSH 2.050. INR 1.2, troponin negative. X- ray of the bilateral knees showed no acute fracture or dislocation. Correlate for Crystal D position arthropathy. X-rays of the pelvis showed no acute fracture, dislocation. CAT scan of the lumbar spine showed advanced degenerative disc disease throughout as well as hypertrophic facet arthropathy and Baastrup's disease. Variable mild spinal canal stenosis due to posterior disc bulges. Variable neural foraminal stenosis severe at the left L5-S1. Bile duct dilated 1.1 cm probably secondary to postcholecystectomy status post patient age. Tiny hiatal hernia and sigmoid diverticulosis. Patient admitted to the [facility] floor and consult requested with orthopedic spine. Patient has been started on Solu-Medrol 60 mg IV every 6 hours and Dilaudid and Xenia for pain. She has been continued on Lyrica. We will resume Xarelto. Review of Systems Constitutional: Reports chronic pain, Reports weakness, Reports weight loss, Denies anorexia, Denies chills, Denies chronic headaches, Denies fatigue, Denies fever, Denies poor appetite Ears, nose, mouth and throat: Denies dental pain, Denies dysphagia, Denies nasal congestion, Denies nasal discharge, Denies sore throat, Denies vertigo Cardiovascular: Denies chest pain, Denies decreased exercise tolerance, Denies dyspnea on exertion, Denies edema, Denies leg edema, Denies lightheadedness, Denies shortness of breath, Denies syncope Respiratory: Denies cough, Denies cough with sputum, Denies dyspnea, Denies excessive sputum, Denies hemoptysis, Denies home oxygen, Denies wheezing Gastrointestinal: Denies abdominal pain, Denies diarrhea, Denies loss of appetite, Denies nausea, Denies vomiting Genitourinary: Denies dysuria, Denies urgency, Denies urinary frequency Musculoskeletal: Reports frequent falls, Reports gait dysfunction, Reports leg numbness/tingling, Reports low back pain, Reports muscle weakness, Reports myalgias, Reports neck pain Integumentary: Denies pruritus, Denies rash, Denies wounds Neurological: Reports gait dysfunction, Denies aphasia, Denies change in mentation, Denies change in speech, Denies confusion, Denies head injury, Denies numbness, Denies seizures, Denies weakness Psychiatric: Denies anxiety, Denies depression Endocrine: Denies fatigue, Denies weight change Past Medical History Past Medical History: Cancer, Fibromyalgia, GERD/Reflux, Hyperlipidemia, Hypertension, Osteoarthritis (OA), Pulmonary Embolus (PE) Additional Past Medical History / Comment(s): Breast Ca 1997, hx PE, neck pain down right arm, down spine & both legs, some kind of clotting gene per pt., migraines, IBS, History of Any Multi-Drug Resistant Organisms: None Reported Past Surgical History: Breast Surgery, Cholecystectomy, Orthopedic Surgery, Tonsillectomy Additional Past Surgical History / Comment(s): left breast Lumpectomy; left Knee arthroscopy, kip cataracts removed Past Anesthesia/Blood Transfusion Reactions: No Reported Reaction Past Psychological History: Anxiety, Depression Smoking Status: Former smoker Past Alcohol Use History: Daily Additional Past Alcohol Use History / Comment(s): quit smoking 4 yrs ago, smoked for 30 yrs, < 1 PPD. No illicit drug use. Patient drinks of vodka drinking daily. She denies any seizure activity with withdrawal from alcohol. Past Drug Use History: None Reported - Past Family History Mother Family Medical History: Cancer Additional Family Medical History / Comment(s): Mother is with history of pancreatic cancer and melanoma. Father Family Medical History: Cancer Additional Family Medical History / Comment(s): Father is with history of bladder cancer. Brother(s) Additional Family Medical History / Comment(s): Patient has one brother with history of coronary artery disease. Patient is on every sisters. Patient has 2 children with no major medical problems. Medications and Allergies Home Medications Medication Instructions Recorded Confirmed Type Atorvastatin [Lipitor] 10 mg PO HS 05/09/15 04/28/19 History Lisinopril [Zestril] 10 mg PO HS 05/09/15 04/28/19 History Omeprazole 20 mg PO HS 05/10/15 04/28/19 History B12/Levomefolate Calcium/B-6 1 tab PO HS 03/24/19 04/28/19 History [Foltx Tablet] Cholecalciferol (Vitamin D3) 5,000 unit PO HS 03/24/19 04/28/19 History [Vitamin D3] DULoxetine HCL [Cymbalta] 60 mg PO HS 03/24/19 04/28/19 History Magnesium Oxide [Mag-Ox] 400 mg PO TID 03/24/19 04/28/19 History Metoprolol Tartrate [Lopressor] 25 mg PO BID 03/24/19 04/28/19 History Rivaroxaban [Xarelto] 15 mg PO HS 03/24/19 04/28/19 History HYDROcodone/APAP 5-325MG [[place] 1 tab PO BID PRN 03/25/19 04/28/19 History 5-325] Diphenox-Atrop 2.5-0.025 mg 1 tab PO DIRECTED PRN 03/31/19 04/28/19 History [Lomotil] traZODone HCL [Desyrel] 50 mg PO HS PRN 03/31/19 04/28/19 History Pregabalin [Lyrica] 25 mg PO BID 04/28/19 04/28/19 History Allergies Allergy/AdvReac Type Severity Reaction Status Date / Time No Known Allergies Allergy Verified 04/28/19 15:16 Physical Exam Vitals: Vital Signs Temp Pulse Pulse Resp BP BP Pulse Ox 04/29/19 07:00 98.2 F 74 16 109/73 90 L 04/29/19 02:20 97.6 F 79 14 118/75 90 L 04/28/19 20:32 98.4 F 86 14 118/76 94 L 04/28/19 18:09 97.7 F 84 15 149/91 95 04/28/19 17:51 98.3 F 04/28/19 17:28 80 20 131/78 98 04/28/19 16:42 69 20 132/56 99 04/28/19 15:52 87 18 140/56 95 04/28/19 14:24 97.9 F 95 16 119/80 98 Intake and Output 04/28/19 04/29/19 04/29/19 22:59 06:59 14:59 Intake Total 150 150 Balance 150 150 Intake: Oral 150 150 Other: Voiding Method Bedside Commode # Voids 1 2 Gen: This is a 73-year-old female. Patient is resting and appears to be comfortable in no acute distress. HEENT: Head is atraumatic, normocephalic. Pupils equal, round. Sclerae is anicteric. NECK: Supple. No JVD. No lymphadenopathy. No thyromegaly. LUNGS: Clear to auscultation. No wheezes or rhonchi. No intercostal retractions. HEART: Regular rate and rhythm. No murmur. ABDOMEN: Soft. Bowel sounds are present. No masses. No tenderness. EXTREMITIES: No pedal edema. No calf tenderness. No increased pain with straight leg lift. NEUROLOGICAL: Patient is awake, alert and oriented x3. Cranial nerves 2 through 12 are grossly intact. Results CBC & Chem 7: 04/28/19 14:49 04/29/19 07:15 Labs: Abnormal Lab Results - Last 24 Hours (Table) 04/28/19 04/28/19 04/28/19 Range/Units 14:49 14:49 16:30 PT 12.1 H (9.0-12.0) sec INR 1.2 H (<1.2) APTT 34.2 H (22.0-30.0) sec BUN 18 H (7-17) mg/dL Creatinine 1.05 H (0.52-1.04) mg/dL Glucose 106 H (74-99) mg/dL AST 40 H (14-36) U/L Urine Protein Trace H (Negative) 04/29/19 Range/Units 07:15 PT (9.0-12.0) sec INR (<1.2) APTT (22.0-30.0) sec BUN (7-17) mg/dL Creatinine (0.52-1.04) mg/dL Glucose 168 H (74-99) mg/dL AST 52 H (14-36) U/L Urine Protein (Negative) Thrombosis Risk Factor Assmnt - DVT/VTE Prophylaxis DVT/VTE Prophylaxis: Pharmacologic Prophylaxis ordered - Choose All That Apply Any of the Below Risk Factors Present?: Yes Each Factor Represents 1 point: Medical pt on bed rest Other Risk Factors: Yes Each Risk Factor Represents 2 Points: Age 61-74 years Each Risk Factor Represents 3 Points: History of DVT/PE Other congenital or acquired thrombophilia - If yes, enter type in comment: No Thrombosis Risk Factor Assessment Total Risk Factor Score: 6 Thrombosis Risk Factor Assessment Level: High Risk Assessment and Plan Plan: 1. Degenerative disc disease of lumbar spine and stenosis most severe at the left L5-S1. Consult with Dr. Conway. Continue Solu-Medrol 60 mg IV every 6 hours, Xenia or Dilaudid for pain. 2. Multilevel disc herniation of the cervical spine status post cervical epidural steroid injection C7-T1 on April [address] Vaz, pain management. Continue Lyrica 25 mg twice daily. 3. History of breast cancer 20 years ago status post lumpectomy and radiation, stable. 4. Hypertension. Continue lisinopril 10 mg at bedtime, Lopressor 25 mg twice daily. 5. Hyperlipidemia. Continue atorvastatin 10 mg at bedtime. 6. History of pulmonary embolus 4 years ago on Xarelto. Continue Xarelto. 7. Fibromyalgia. Continue current pain management. 8. Migraine headaches, stable. 9. Irritable bowel syndrome. Continue Lomotil as needed. 10. Recurrent depression. Continue Cymbalta 60 mg at bedtime, trazodone 50 mg at bedtime. 11. Remote history of tobacco use and dependence. 12. Daily alcohol use. No history of seizure activity. Monitor for DTs. 13. DVT prophylaxis. Xarelto 14. GI prophylaxis and gastroesophageal reflux disease. Protonix. Patient placed as an observation status. Discharge plan: Home tomorrow Impression and plan of care have been directed as dictated by the signing physician. Tia Harley nurse practitioner acting as scribe for signing physician.
[2019-04-29] MEDS: CHOLECALCIFEROL 1,000 UNIT TAB PO SCH (20:22)
[2019-04-29] MEDS: ATORVASTATIN 10 MG TAB PO SCH (20:22)
[2019-04-29] MEDS: LISINOPRIL 10 MG TAB PO SCH (20:23)
[2019-04-29] MEDS: DULoxetine HCL 60 MG CAPSULE.DR PO SCH (20:23)
[2019-04-29] MEDS: FOLIC ACID-VIT B COMPLEX-VIT C 1 CAP PO SCH (20:23)
[2019-04-29] MEDS: PANTOPRAZOLE 40 MG TABLET PO SCH (20:23)
[2019-04-29] MEDS ORDERED: RIVAROXABAN 15 MG TAB PO SCH (21:00)
[2019-04-30] MEDS: methylPREDNISolone SOD SUCCI 125 MG/2 ML VIAL IV SCH ×2 (05:31→13:02)
[2019-04-30] MEDS: HYDROcodone/APAP 7.5-325MG 1 EACH TAB PO PRN ×2 (05:31→13:01)
[2019-04-30 07:35] VITALS: RESP 16; TEMP 98.1
[2019-04-30 08:01] VITALS: BP 106/64; PULSE 77
[2019-04-30] MEDS: METOPROLOL TARTRATE 25 MG TAB PO SCH (08:01)
[2019-04-30] MEDS: MAGNESIUM OXIDE 400 MG TAB PO SCH (08:01)
[2019-04-30] MEDS: PREGABALIN 25 MG CAP PO SCH (08:01)
--- NOTE | 2019-04-30 14:22 | P.DS ---
Providers Date of admission: 04/28/19 17:15 Expected date of discharge: 04/30/19 Attending physician: Kasey Marino Consults: 04/28/19 18:32 Consult Physician Routine Consulting Provider: Nish Conway Consult Reason/Comments: back pain Do you want consulting provider notified?: Already Contacted Primary care physician: Jayden Burton [facility] Course: This is a 73-year-old female patient of Dr. Burton with past medical history of multilevel disc herniation C3-C4, C4-5 disc bulging and facet arthropathy C5 6 disc bulging and facet joint hypertrophy, C6 7 disc herniation multilevel canal stenosis. She has been under the care of pain management and underwent cervical epidural steroid injection C7-T1 on April [address] Vaz. Patient gives history that about 4 months ago she started having pain in her neck and then it gradually went into her thoracic area. At that initial time, her legs did not cause any problem she did not have any low back pain. She subsequently developed all over muscle aches. She was recently on prednisone 2 weeks ago for back lumbar pain. She now has pain in both lower extremities and more so on the left with numbness. She does have lumbar pain. Yesterday, she was sitting in her wheelchair and leaned forward falling onto both knees and she could not give out. She states she's had 3 episodes where she was unable to get up. She has started using a walker at home. Patient was started on Lyrica 25 mg twice daily 1-1/2 weeks ago. She denies head injury. History of breath breast cancer 20 years ago with lumpectomy and radiation, fibromyalgia, gastroesophageal reflux disease, hypertension, hyperlipidemia, generalized osteoarthritis, pulmonary embolus 4 years ago on Xarelto, migraine headaches, irritable bowel syndrome, remote history of tobacco use and dependence, daily alcohol intake. Patient presented to [facility] emergency center for evaluation. Temperature 97.9 heart rate 95, respirations 16, pulse ox 98% on room air, blood pressure 119/80. CBC unremarkable. BUN 18 creatinine 1.05, blood sugar 106. Lactic acid 1.2. TSH 2.050. INR 1.2, troponin negative. X- ray of the bilateral knees showed no acute fracture or dislocation. Correlate for crystal deposition arthropathy. X-rays of the pelvis showed no acute fracture, dislocation. CAT scan of the lumbar spine showed advanced degene rative disc disease throughout as well as hypertrophic facet arthropathy and Baastrup's disease. Variable mild spinal canal stenosis due to posterior disc bulges. Variable neural foraminal stenosis severe at the left L5-S1. Bile duct dilated 1.1 cm probably secondary to postcholecystectomy status post patient age. Tiny hiatal hernia and sigmoid diverticulosis. Patient admitted to the [facility] floor and consult requested with orthopedic spine. Patient has been started on Solu-Medrol 60 mg IV every 6 hours and Dilaudid and [place] for pain. She has been continued on Lyrica. We will resume Xarelto. 04/30: The patient was seen yesterday by Dr. Conway with recommendations for tapering dose of steroid when she is discharged and follow-up in the next 2 weeks for recheck in the office. Patient has been continued overnight on Solu- Medrol 60 mg IV every 6 hours. She has been afebrile, heart rate 66, blood pressure 101/57, pulse ox 95% on room air. Patient will be discharged home today in stable condition. Discharge diagnoses: 1. Degenerative disc disease of lumbar spine and stenosis most severe at the left L5-S1. 2. Multilevel disc herniation of the cervical spine status post cervical epidural steroid injection C7-T1 on April [address] Vaz, pain management. 3. History of breast cancer 20 years ago status post lumpectomy and radiation, stable. 4. Hypertension. 5. Hyperlipidemia. 6. History of pulmonary embolus 4 years ago on Xarelto. 7. Fibromyalgia. 8. Migraine headaches, stable. 9. Irritable bowel syndrome. 10. Recurrent depression. 11. Remote history of tobacco use and dependence. 12. Daily alcohol use. Discharge plan: Home Impression and plan of care have been directed as dictated by the signing physician. Tia Harley nurse practitioner acting as scribe for signing physician. Patient Condition at Discharge: Good Plan - Discharge Summary Discharge Rx Participant: Yes New Discharge Prescriptions: New predniSONE 20 mg PO DAILY #30 tab Cyclobenzaprine [Flexeril] 5 mg PO TID PRN #90 tablet PRN Reason: Spasms Continue Lisinopril [Zestril] 10 mg PO HS Atorvastatin [Lipitor] 10 mg PO HS Omeprazole 20 mg PO HS Metoprolol Tartrate [Lopressor] 25 mg PO BID Magnesium Oxide [Mag-Ox] 400 mg PO TID DULoxetine HCL [Cymbalta] 60 mg PO HS Rivaroxaban [Xarelto] 15 mg PO HS Cholecalciferol (Vitamin D3) [Vitamin D3] 5,000 unit PO HS B12/Levomefolate Calcium/B-6 [Foltx Tablet] 1 tab PO HS HYDROcodone/APAP 5-325MG [[place] 5-325] 1 tab PO BID PRN PRN Reason: Pain traZODone HCL [Desyrel] 50 mg PO HS PRN PRN Reason: sleep Diphenox-Atrop 2.5-0.025 mg [Lomotil] 1 tab PO DIRECTED PRN PRN Reason: Diarrhea Pregabalin [Lyrica] 25 mg PO BID Discharge Medication List Atorvastatin [Lipitor] 10 mg PO HS 05/09/15 [History] Lisinopril [Zestril] 10 mg PO HS 05/09/15 [History] Omeprazole 20 mg PO HS 05/10/15 [History] B12/Levomefolate Calcium/B-6 [Foltx Tablet] 1 tab PO HS 03/24/19 [History] Cholecalciferol (Vitamin D3) [Vitamin D3] 5,000 unit PO HS 03/24/19 [History] DULoxetine HCL [Cymbalta] 60 mg PO HS 03/24/19 [History] Magnesium Oxide [Mag-Ox] 400 mg PO TID 03/24/19 [History] Metoprolol Tartrate [Lopressor] 25 mg PO BID 03/24/19 [History] Rivaroxaban [Xarelto] 15 mg PO HS 03/24/19 [History] HYDROcodone/APAP 5-325MG [[place] 5-325] 1 tab PO BID PRN 03/25/19 [History] Diphenox-Atrop 2.5-0.025 mg [Lomotil] 1 tab PO DIRECTED PRN 03/31/19 [History] traZODone HCL [Desyrel] 50 mg PO HS PRN 03/31/19 [History] Pregabalin [Lyrica] 25 mg PO BID 04/28/19 [History] Cyclobenzaprine [Flexeril] 5 mg PO TID PRN #90 tablet 04/30/19 [Rx] predniSONE 20 mg PO DAILY #30 tab 04/30/19 [Rx] Follow up Appointment(s)/Referral(s): Jayden Burton MD [Primary Care Provider] - 05/06/19 11:30 am Nish Conway DO [Doctor of Osteopathic Medicine] - 05/21/19 1:30 pm Discharge Disposition: HOME SELF-CARE
== END 2019-04-30 15:16 | disposition home or self-care (01) ==
LOC: EC 14:22 → 4SSUR 17:15
PROVIDERS: ADMIT Family Medicine; ATTEND Family Medicine
DX: M51.16 Intervertebral disc disorders with radiculopathy, lumbar region (principal); M48.062 Spinal stenosis, lumbar region with neurogenic claudication; M79.7 Fibromyalgia; K21.9 Gastro-esophageal reflux disease without esophagitis; E78.5 Hyperlipidemia, unspecified; G43.909 Migraine, unspecified, not intractable, without status migrainosus; K58.9 Irritable bowel syndrome, unspecified; F33.9 Major depressive disorder, recurrent, unspecified; F41.9 Anxiety disorder, unspecified; I10 Essential (primary) hypertension; M15.9 Polyosteoarthritis, unspecified; M46.90 Unspecified inflammatory spondylopathy, site unspecified; M47.9 Spondylosis, unspecified; R29.6 Repeated falls; M50.30 Other cervical disc degeneration, unspecified cervical region; W05.0XXA Fall from non-moving wheelchair, initial encounter; Z79.01 Long term (current) use of anticoagulants; Z79.899 Other long term (current) drug therapy; Z92.3 Personal history of irradiation; Z86.711 Personal history of pulmonary embolism; Z90.49 Acquired absence of other specified parts of digestive tract; Z98.42 Cataract extraction status, left eye; Z98.41 Cataract extraction status, right eye; Z87.891 Personal history of nicotine dependence; Z85.3 Personal history of malignant neoplasm of breast; Z82.49 Family history of ischemic heart disease and other diseases of the circulatory system; Z80.8 Family history of malignant neoplasm of other organs or systems; Z80.0 Family history of malignant neoplasm of digestive organs
CPT/HCPCS: 96376 ×2; 96374; 96375; 99285; 36415; 93005; 97116; 97162; 97166; 80053 ×2; 83605; 84443; 84484; 85025; 85610; 85730; 81003; 73562; 72170; 72131; G0378 ×3; J2930 ×3; J1170 ×2

== ENCOUNTER 2019-05-24 17:41 | Inpatient (IN) | payer MEDICARE ==
--- NOTE | 2019-05-24 20:30 | ED ---
Weakness HPI - General Source: patient Mode of arrival: ambulatory Limitations: no limitations <Gin Roth - Last Filed: 05/25/19 00:19> <Mitchell Alejandro - Last Filed: 05/26/19 08:17> - General Chief complaint: Weakness Stated complaint: fall, weakness Time Seen by Provider: 05/24/19 19:43 - History of Present Illness Initial comments: 73-year-old female patient with a past medical history significant for breast cancer, fibromyalgia, hyperlipidemia, hypertension, pulmonary embolism, and chronic low back pain presents to the emergency department today for evaluation of increasing weakness and frequent falls. Patient was seen, evaluated, and admitted here two weeks ago for similar symptoms. She did undergo CT of the lumbar spine showing degenerative changes and orthopedic evaluation. She started physical therapy while here. Patient was started on a steroid taper and discharged home. Patient states since the steroids were completed one week ago she has had worsening weakness and frequent falls. Patient did have a follow up appointment with orthopedic talent management specialist Dr. Conway today, who believes this is more a neurologic problem than orthopedic and recommended she seek neurology evaluation. Patient fell three times on Friday. She also had a fall today and was too weak to get up. States she tried for approximately an hour and 15 minutes to get up, but finally had to call EMS for assistance. Patient is complaining of bilateral buttock pain since falling. She states she does have chronic lower extremity numbness and tingling for which she started Lyrica about three weeks ago. Patient states overall she has had a rapid decline in her physical stamina and increasing weakness over the last 1-3 months. Patient denies any recent rash, fever, chills, shortness breath, chest pain, abdominal pain, nausea, vomiting, constipation, loss of bowel or bladder control, hematuria, dysuria, urinary urgency, urinary frequency, headache, visual changes, or any other complaints. She denies hitting her head or losing consciousness with the fall. (Gin Roth) - Related Data Home Medications Medication Instructions Recorded Confirmed Atorvastatin [Lipitor] 10 mg PO HS 05/09/15 05/24/19 Omeprazole 20 mg PO HS 05/10/15 05/24/19 B12/Levomefolate Calcium/B-6 1 tab PO HS 03/24/19 05/24/19 [Foltx Tablet] DULoxetine HCL [Cymbalta] 60 mg PO HS 03/24/19 05/24/19 Magnesium Oxide [Mag-Ox] 400 mg PO TID 03/24/19 05/24/19 Metoprolol Tartrate [Lopressor] 25 mg PO BID 03/24/19 05/24/19 Rivaroxaban [Xarelto] 15 mg PO HS 03/24/19 05/24/19 Diphenox-Atrop 2.5-0.025 mg 1 tab PO QID PRN 03/31/19 05/24/19 [Lomotil] traZODone HCL [Desyrel] 50 mg PO HS PRN 03/31/19 05/24/19 Cholecalciferol [Vitamin D3 (25 5,000 unit PO HS 05/24/19 05/24/19 Mcg = 1000 Iu)] HYDROcodone/APAP 7.5-325MG [[place] 1 tab PO BID 05/24/19 05/24/19 7.5-325] Allergies Allergy/AdvReac Type Severity Reaction Status Date / Time No Known Allergies Allergy Verified 05/24/19 20:03 Review of Systems ROS Other: All systems not noted in ROS Statement are negative. <Gin Roth - Last Filed: 05/25/19 00:19> ROS Other: All systems not noted in ROS Statement are negative. <Mitchell Alejandro - Last Filed: 05/26/19 08:17> ROS Statement: Those systems with pertinent positive or pertinent negative responses have been documented in the HPI. 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., migraines, IBS, History of Any Multi-Drug Resistant Organisms: None Reported Past Surgical History: Breast Surgery, Cholecystectomy, Orthopedic Surgery, Tonsillectomy Additional Past Surgical History / Comment(s): left breast Lumpectomy; left Knee arthroscopy, kip cataracts removed Past Anesthesia/Blood Transfusion Reactions: No Reported Reaction Past Psychological History: Anxiety, Depression Smoking Status: Former smoker Past Alcohol Use History: Daily Past Drug Use History: None Reported - Past Family History Brother(s) Additional Family Medical History / Comment(s): Patient has one brother with his tory of coronary artery disease. Patient is on every sisters. Patient has 2 children with no major medical problems. Mother Family Medical History: Cancer Additional Family Medical History / Comment(s): Mother is with history of pancreatic cancer and melanoma. Father Family Medical History: Cancer Additional Family Medical History / Comment(s): Father is with history of bladder cancer. <Gin Roth M - Last Filed: 05/25/19 00:19> General Exam Limitations: no limitations General appearance: alert, in no apparent distress, other (This is a well- developed, well-nourished adult female patient in no acute distress. Vital signs upon presentation are temperature 97.8F, pulse 105, respirations 18, blood pressure 121/85, pulse ox 95% on room air.) Eye exam: Present: normal appearance, PERRL, EOMI. Absent: scleral icterus, conjunctival injection, periorbital swelling ENT exam: Present: normal exam, normal oropharynx, mucous membranes moist Neck exam: Present: normal inspection, full ROM, other (Nontender, no step-off, no deformity to firm midline palpation of the posterior cervical spine. Full range of motion without pain or limitation.). Absent: tenderness, meningismus, lymphadenopathy Respiratory exam: Present: normal lung sounds bilaterally. Absent: respiratory distress, wheezes, rales, rhonchi, stridor Cardiovascular Exam: Present: regular rate, normal rhythm, normal heart sounds. Absent: systolic murmur, diastolic murmur, rubs, gallop, clicks GI/Abdominal exam: Present: soft, normal bowel sounds. Absent: distended, tenderness, guarding, rebound, rigid Extremities exam: Present: normal inspection, full ROM, normal capillary refill, other (Feet are cool to touch. Cap refills less than 3 seconds. Pedal and posttibial pulses are 1+ bilaterally.). Absent: tenderness, pedal edema, joint swelling, calf tenderness Back exam: Present: normal inspection. Absent: vertebral tenderness Neurological exam: Present: alert, oriented X3, CN II-XII intact. Absent: normal gait Expanded Motor strength exam: RUE: 3, LUE: 3, RLE: 4, LLE: 4 Psychiatric exam: Present: normal affect, normal mood Skin exam: Present: warm, dry, intact, normal color. Absent: rash <JennyfrannieGin Keaton - Last Filed: 05/25/19 00:19> Course <Gin Roth - Last Filed: 05/25/19 00:19> Vital Signs 05/24/19 05/24/19 05/24/19 17:47 20:42 21:29 Temperature 97.8 F Pulse Rate 105 H 99 89 Respiratory 18 16 16 Rate Blood Pressure 121/85 108/76 O2 Sat by Pulse 95 93 L Oximetry 05/24/19 05/24/19 21:55 22:53 Temperature 97.6 F 98.7 F Pulse Rate 98 94 Respiratory 16 16 Rate Blood Pressure 137/89 129/82 O2 Sat by Pulse 97 96 Oximetry - Reevaluation(s) Reevaluation #1: 05/25/19 00:19 Sepsis diagnosed at 0019 05/25/2019 (Gin Roth) EKG Findings - EKG Comments: EKG Findings:: EKG obtained at 2126 shows normal sinus rhythm with a ventricular rate of 94, CO interval 128, QR duration 88, QT 352, QTc 440. No evidence of ST elevation or depression. <Gin Roth - Last Filed: 05/25/19 00:19> Medical Decision Making - Lab Data Result diagrams: 05/24/19 20:30 05/24/19 20:30 - Radiology Data Radiology results: report reviewed, image reviewed <Gin Roth - Last Filed: 05/25/19 00:19> - Lab Data Result diagrams: 05/26/19 06:55 05/26/19 06:55 <Mitchell Alejandro - Last Filed: 05/26/19 08:17> - Medical Decision Making 73-year-old female patient presented to the emergency department today for evaluation of progressively worsening weakness over the last several weeks. Patient was started on steroids which stopped about a week ago, states that the weakness has significantly worsened since and she has had multiple falls over the weekend. Patient did report bilateral buttock pain after the fall today, x-rays of the hips and pelvis was negative. Labs reviewed and did reveal elevated white blood cell count at 13.9, lactic acid 2.6, evidence for urinary tract infection with positive nitrite. Chest x-ray was obtained and did show a left-sided lung mass, CT chest with contrast was obtained and did show a 4 cm mass to the left upper lobe concerning for neoplasm. I did discuss all findings and results with the patient. She'll be started on IV antibiotics. She'll be admitted to Dr. Marino. (Gin Roth) I saw this patient in conjunction with the physician diploma medical assistant. I performed independent history and physical exam. Agree with case management. (Ricci Alejandro uma) - Lab Data Lab Results 05/24/19 05/24/19 05/24/19 Range/Units 20:30 20:30 20:30 WBC 13.9 H (3.8-10.6) k/uL RBC 4.41 (3.80-5.40) m/uL Hgb 14.2 (11.4-16.0) gm/dL Hct 42.2 (34.0-46.0) % MCV 95.6 (80.0-100.0) fL MCH 32.2 (25.0-35.0) pg MCHC 33.6 (31.0-37.0) g/dL RDW 15.0 (11.5-15.5) % Plt Count 270 (150-450) k/uL Neutrophils % 76 % Lymphocytes % 15 % Monocytes % 6 % Eosinophils % 1 % Basophils % 0 % Neutrophils # 10.6 H (1.3-7.7) k/uL Lymphocytes # 2.0 (1.0-4.8) k/uL Monocytes # 0.9 (0-1.0) k/uL Eosinophils # 0.1 (0-0.7) k/uL Basophils # 0.1 (0-0.2) k/uL PT (9.0-12.0) sec INR (<1.2) APTT (22.0-30.0) sec Sodium 133 L (137-145) mmol/L Potassium 4.0 (3.5-5.1) mmol/L Chloride 97 L (98-107) mmol/L Carbon Dioxide 22 (22-30) mmol/L Anion Gap 14 mmol/L BUN 16 (7-17) mg/dL Creatinine 1.20 H (0.52-1.04) mg/dL Est GFR (CKD-EPI)AfAm 52 (>60 ml/min/1.73 sqM) Est GFR (CKD-EPI)NonAf 45 (>60 ml/min/1.73 sqM) Glucose 104 H (74-99) mg/dL Lactic Ac Sepsis Rflx Plasma Lactic Acid Evert 2.6 H* (0.7-2.0) mmol/L Calcium 10.3 H (8.4-10.2) mg/dL Magnesium 1.8 (1.6-2.3) mg/dL Total Bilirubin 1.3 (0.2-1.3) mg/dL AST 53 H (14-36) U/L ALT 43 (9-52) U/L Alkaline Phosphatase 100 (38-126) U/L Creatine Kinase 733 H (30-135) U/L Troponin I (0.000-0.034) ng/mL Total Protein 6.8 (6.3-8.2) g/dL Albumin 4.1 (3.5-5.0) g/dL TSH 1.400 (0.465-4.680) mIU/L Urine Color Urine Appearance (Clear) Urine pH (5.0-8.0) Ur Specific [place] (1.001-1.035) Urine Protein (Negative) Urine Glucose (UA) (Negative) Urine Ketones (Negative) Urine Blood (Negative) Urine Nitrite (Negative) Urine Bilirubin (Negative) Urine Urobilinogen (<2.0) mg/dL Ur Leukocyte Esterase (Negative) Urine RBC (0-5) /hpf Urine WBC (0-5) /hpf Urine WBC Clumps (None) /hpf Ur Squamous Epith Cells (0-4) /hpf Urine Bacteria (None) /hpf 05/24/19 05/24/19 05/24/19 Range/Units 20:30 20:30 21:12 WBC (3.8-10.6) k/uL RBC (3.80-5.40) m/uL Hgb (11.4-16.0) gm/dL Hct (34.0-46.0) % MCV (80.0-100.0) fL MCH (25.0-35.0) pg MCHC (31.0-37.0) g/dL RDW (11.5-15.5) % Plt Count (150-450) k/uL Neutrophils % % Lymphocytes % % Monocytes % % Eosinophils % % Basophils % % Neutrophils # (1.3-7.7) k/uL Lymphocytes # (1.0-4.8) k/uL Monocytes # (0-1.0) k/uL Eosinophils # (0-0.7) k/uL Basophils # (0-0.2) k/uL PT 10.1 (9.0-12.0) sec INR 0.9 (<1.2) APTT 29.0 (22.0-30.0) sec Sodium (137-145) mmol/L Potassium (3.5-5.1) mmol/L Chloride (98-107) mmol/L Carbon Dioxide (22-30) mmol/L Anion Gap mmol/L BUN (7-17) mg/dL Creatinine (0.52-1.04) mg/dL Est GFR (CKD-EPI)AfAm (>60 ml/min/1.73 sqM) Est GFR (CKD-EPI)NonAf (>60 ml/min/1.73 sqM) Glucose (74-99) mg/dL Lactic Ac Sepsis Rflx Y Plasma Lactic Acid Evert (0.7-2.0) mmol/L Calcium (8.4-10.2) mg/dL Magnesium (1.6-2.3) mg/dL Total Bilirubin (0.2-1.3) mg/dL AST (14-36) U/L ALT (9-52) U/L Alkaline Phosphatase (38-126) U/L Creatine Kinase (30-135) U/L Troponin I <0.012 (0.000-0.034) ng/mL Total Protein (6.3-8.2) g/dL Albumin (3.5-5.0) g/dL TSH (0.465-4.680) mIU/L Urine Color Urine Appearance (Clear) Urine pH (5.0-8.0) Ur Specific [place] (1.001-1.035) Urine Protein (Negative) Urine Glucose (UA) (Negative) Urine Ketones (Negative) Urine Blood (Negative) Urine Nitrite (Negative) Urine Bilirubin (Negative) Urine Urobilinogen (<2.0) mg/dL Ur Leukocyte Esterase (Negative) Urine RBC (0-5) /hpf Urine WBC (0-5) /hpf Urine WBC Clumps (None) /hpf Ur Squamous Epith Cells (0-4) /hpf Urine Bacteria (None) /hpf 05/24/19 Range/Units 22:45 WBC (3.8-10.6) k/uL RBC (3.80-5.40) m/uL Hgb (11.4-16.0) gm/dL Hct (34.0-46.0) % MCV (80.0-100.0) fL MCH (25.0-35.0) pg MCHC (31.0-37.0) g/dL RDW (11.5-15.5) % Plt Count (150-450) k/uL Neutrophils % % Lymphocytes % % Monocytes % % Eosinophils % % Basophils % % Neutrophils # (1.3-7.7) k/uL Lymphocytes # (1.0-4.8) k/uL Monocytes # (0-1.0) k/uL Eosinophils # (0-0.7) k/uL Basophils # (0-0.2) k/uL PT (9.0-12.0) sec INR (<1.2) APTT (22.0-30.0) sec Sodium (137-145) mmol/L Potassium (3.5-5.1) mmol/L Chloride (98-107) mmol/L Carbon Dioxide (22-30) mmol/L Anion Gap mmol/L BUN (7-17) mg/dL Creatinine (0.52-1.04) mg/dL Est GFR (CKD-EPI)AfAm (>60 ml/min/1.73 sqM) Est GFR (CKD-EPI)NonAf (>60 ml/min/1.73 sqM) Glucose (74-99) mg/dL Lactic Ac Sepsis Rflx Plasma Lactic Acid Evert (0.7-2.0) mmol/L Calcium (8.4-10.2) mg/dL Magnesium (1.6-2.3) mg/dL Total Bilirubin (0.2-1.3) mg/dL AST (14-36) U/L ALT (9-52) U/L Alkaline Phosphatase (38-126) U/L Creatine Kinase (30-135) U/L Troponin I (0.000-0.034) ng/mL Total Protein (6.3-8.2) g/dL Albumin (3.5-5.0) g/dL TSH (0.465-4.680) mIU/L Urine Color Light Red Urine Appearance Turbid H (Clear) Urine pH 6.0 (5.0-8.0) Ur Specific [place] 1.038 H (1.001-1.035) Urine Protein 2+ H (Negative) Urine Glucose (UA) Negative (Negative) Urine Ketones 1+ H (Negative) Urine Blood Moderate H (Negative) Urine Nitrite Positive H (Negative) Urine Bilirubin Negative (Negative) Urine Urobilinogen <2.0 (<2.0) mg/dL Ur Leukocyte Esterase Large H (Negative) Urine RBC 111 H (0-5) /hpf Urine WBC >182 H (0-5) /hpf Urine WBC Clumps Many H (None) /hpf Ur Squamous Epith Cells 5 H (0-4) /hpf Urine Bacteria Many H (None) /hpf - Radiology Data Two-view x-ray of the chest is obtained. Report is reviewed in its entirety. Impression by Dr. Nassar shows masslike density left midlung is change compared to old exam. Possible new mediastinal adenopathy. CT brain without contrast was obtained. Report was reviewed in its entirety. Impression by Dr. Enrique shows mild atrophy. No acute intracranial abnormality. No change. 5 views of the pelvis and hips are obtained. Report was reviewed in its entirety. Impression by Dr. Nassar shows negative pelvis and bilateral hip exam. No fracture. No change. CT chest with contrast obtained. Report was reviewed in its entirety. Impression by Dr. Waggoner shows left upper lobe mass lesion with pleural-based component compatible with neoplasm. Extensive mediastinal lymphadenopathy. Small right pleural effusion and subsegmental atelectasis of the right lung base. Fatty infiltration of the liver. Central intrahepatic and extrahepatic duct dilation of uncertain etiology. Further workup was advised. Probable left adrenal adenoma. (Gin Roth) Disposition Decision to Admit Reason: Admit from EC Decision Date: 05/25/19 Decision Time: 00:23 <Gin Roth - Last Filed: 05/25/19 00:19> <Mitchell Alejandro - Last Filed: 05/26/19 08:17> Clinical Impression: UTI (urinary tract infection), Sepsis, Weakness, Frequent falls, Mass of left lung Disposition: ADMITTED IP TO THIS HOSP Condition: Serious
[2019-05-24 20:50] LABS: Basophils # (A) 0.1 k/uL (0-0.2); Basophils % (A) 0 %; Eosinophils # (A) 0.1 k/uL (0-0.7); Eosinophils % (A) 1 %; HCT 42.2 % (34.0-46.0); HGB 14.2 gm/dL (11.4-16.0); Lymphocytes % (A) 15 %; MCH 32.2 pg (25.0-35.0); MCHC 33.6 g/dL (31.0-37.0); MCV 95.6 fL (80.0-100.0); Mean Platelet Volume 7.2; Monocytes # (A) 0.9 k/uL (0-1.0); Monocytes % (A) 6 %; Neutrophils # (A) 10.6 k/uL (1.3-7.7); Neutrophils % (A) 76 %; Platelet Count 270 k/uL (150-450); RBC 4.41 m/uL (3.80-5.40); WBC 13.9 k/uL (3.8-10.6)
--- NOTE | 2019-05-24 20:59 | CT ---
EXAMINATION TYPE: CT brain wo con DATE OF EXAM: 05/24/2019 COMPARISON: 05/09/2015 HISTORY: Weakness and fall injury CT DLP: 1066.4 mGycm Automated exposure control for dose reduction was used. FINDINGS: There is cerebral mild cortical atrophy. There is no mass effect nor midline shift. There is no sign of intracranial hemorrhage. The calvarium is intact. IMPRESSION: MILD ATROPHY. NO ACUTE INTRACRANIAL ABNORMALITY. NO CHANGE.
[2019-05-24 21:01] LABS: INR 0.9 (<1.2); Prothrombin Time 10.1 sec (9.0-12.0)
[2019-05-24 21:02] LABS: Albumin 4.1 g/dL (3.5-5.0); Calcium 10.3 mg/dL (8.4-10.2); Magnesium 1.8 mg/dL (1.6-2.3); Total Bilirubin 1.3 mg/dL (0.2-1.3); Total Protein 6.8 g/dL (6.3-8.2)
--- NOTE | 2019-05-24 21:13 | XR ---
EXAMINATION TYPE: XR chest 2V DATE OF EXAM: 05/24/2019 COMPARISON: 05/09/2015 HISTORY: Weakness TECHNIQUE: Frontal and lateral views of the chest are obtained. FINDINGS: Heart is normal. There is 3 cm masslike infiltrate in the left midlung. The other lung fie lds are fairly clear. There is slight elevated right diaphragm. There is increased density in the rig ht paratracheal region that could be mediastinal adenopathy. There is no pleural effusion. Bony thora x appears intact. IMPRESSION: Masslike density left midlung is a change compared to old exam. Possible new mediastinal adenopathy. Follow-up recommended.
--- NOTE | 2019-05-24 21:15 | XR ---
EXAMINATION TYPE: XR Hip Bilateral and AP pelvis DATE OF EXAM: 05/24/2019 COMPARISON: 04/28/2019 HISTORY: Hip pain TECHNIQUE: Pelvis and both hips 5 views. FINDINGS: The pelvic ring is intact. Proximal left femur and right femur appear intact. Hip joint spa nena are fairly normal. Sacroiliac joints appear intact. There is no evidence of a fracture. Impression new graft negative pelvis and bilateral hip exam. No fracture. No change.
[2019-05-24] MEDS ORDERED: RX INFO: IV CONTRAST WAS GIVEN 1 EACH MISC MISCELLANE PRN (22:07)
[2019-05-24] MEDS ORDERED: SODIUM CHLORIDE 0.9% 1,000 ML IV ONE (22:13)
--- NOTE | 2019-05-24 22:49 | CT ---
EXAM: CT Chest With Intravenous Contrast CLINICAL HISTORY: CT Reason: Left lung mass TECHNIQUE: Axial computed tomography images of the chest with intravenous contrast. CTDI is 7.1 mGy and DLP is 271.3 mGy-cm. This CT exam was performed using one or more of the following dose reduction techniques: automated exposure control, adjustment of the mA and/or kV according to patient size, and/or use of iterative reconstruction technique. COMPARISON: None. FINDINGS: There is a 3.3 x 4.4 x 3 cm spiculated mass lesion in the anterior and inferior aspect of the left upper lobe compatible with neoplasm. The anterior and lateral aspect of this mass lesion has a pleural-based component. Small right pleural effusion and subsegmental atelectasis of the right lung base is noted. 8 2.5 x 2.9 cm right pretracheal lymph node is noted. A 3.7 x 4 cm aorticopulmonary lymph node is noted. Prominent lesion or additional smaller lymph nodes in the aortopulmonary region are noted. The airway is patent. Atherosclerotic disease of the thoracic aorta is noted. Mild to moderate degenerative disc disease of the thoracic spine is noted. No rib destruction is noted. Fatty infiltration of the liver is noted. Mild central intrahepatic and extra hepatic duct dilatation is noted of uncertain etiology. Further workup is advised. A 0.37 probable left adrenal adenoma is noted. IMPRESSION: Left upper lobe mass lesion with pleural-based component compatible with neoplasm. Extensive mediastinal lymphadenopathy. Small right pleural effusion and subsegmental atelectasis of the right lung base. Fatty infiltration of the liver. Central intrahepatic and extra hepatic duct dilatation of uncertain etiology. Further workup is advised. Probable left adrenal adenoma.
[2019-05-24 23:20] LABS: Appearance,Urine Turbid (Clear); Bacteria,Urine Many /hpf; Bilirubin,Urine Negative (Negative); Blood,Urine Moderate (Negative); Color,Urine Light Red; Glucose,Urine (UA) Negative (Negative); Ketones,Urine 1+ (Negative); Leukocyte Esterase,Urine Large (Negative); Nitrite,Urine Positive (Negative); Protein,Urine 2+ (Negative); RBC,Urine 111 /hpf (0-5); Squamous Epithelial Cell,Urine 5 /hpf (0-4); Urobilinogen,Urine <2.0 mg/dL (<2.0)
[2019-05-24 23:29] LABS: Specific Gravity,Urine 1.038 (1.001-1.035)
[2019-05-24 23:30] LABS: WBC,Urine >182 /hpf (0-5)
[2019-05-25] MEDS ORDERED: ONDANSETRON 4 MG/2 ML VIAL IVP PRN (00:14)
[2019-05-25] MEDS ORDERED: ACETAMINOPHEN TAB 325 MG TAB PO PRN (00:14)
[2019-05-25] MEDS ORDERED: NALOXONE 0.4 MG/ML 1 ML VIAL IV PRN (00:14)
[2019-05-25] MEDS: SODIUM CHLORIDE 0.9% 1,000 ML IV SCH (01:40)
[2019-05-25] MEDS ORDERED: DIPHENOX-ATROP 2.5-0.025 MG 1 EACH TAB PO PRN (09:13)
[2019-05-25] MEDS: MORPHINE SULFATE 4 MG/ML SYRINGE IV PRN (09:30)
[2019-05-25] MEDS: MAGNESIUM OXIDE 400 MG TAB PO SCH ×3 (09:40→21:45)
[2019-05-25] MEDS: METOPROLOL TARTRATE 25 MG TAB PO SCH ×2 (09:40→21:45)
--- NOTE | 2019-05-25 14:01 | P.CNPUL ---
History of Present Illness Consult date: 05/25/19 Requesting physician: Jayden Burton Reason for consult: abnormal CXR/CT, other Chief complaint: Left upper lobe mass lesion History of present illness: This is a 73-year-old white female patient of Dr. Burton with past medical history of left breast cancer status post lumpectomy and radiation treatment, no chemo, hypertension, hyperlipidemia, previous history of pulmonary embolism, chronic clotting disorder related to homocysteinemia patient is on chronic anticoagulation with Xarelto. Other medical history includes osteoarthritis, chronic neck pain, migraine headaches, anxiety, depression. Patient is a former smoker, last quit smoking 4 years ago, did smoke for 35-40 years less than a pack a day. On 05/24/2019 patient presented with weakness, falling. The states patient fell 3 times on Friday, and she fell again on Friday, and he could not get her up. Denies any fever or chills. Apparently patient underwent a recent orthopedic evaluation and was started on steroids, CT of the lumbar spine showing degenerative changes. EMS had to be called for assistance. Denied any recent fever, chills, denied any shortness of breath, denied any chest pain, cough or congestion, no nausea, vomiting diarrhea, no loss of bowel or bladder control, no dysuria, no headaches, no loss of consciousness. Chest x-ray was completed showing masslike density in the left mid lung which was a change from her previous chest x-ray in 2014, there was a possibility of new mediastinal adenopathy. This was followed up with a CT of the chest without intravenous contrast and showed 3.3 x 4.4 x 3 cm spiculated mass lesion in the anterior and inferior aspect of the left upper lobe compatible with neoplasm, with the pleural-based component, small right pleural effusion and subsegmental atelecta sis, there was extensive mediastinal lymphadenopathy, and there was a possible left adrenal adenoma. Lab work showed evidence of urinary tract infection, white blood cell count was 13.9, hemoglobin was 14.2, coagulation profile was within normal limits, sodium was 133, potassium is 4.0, chloride was 97, CO2 is 22, BUN was 16, creatinine is 1.20, plasma lactic acid was mildly elevated to 2.6, patient received fluid resuscitation, received a liter bolus, and currently IV fluids infusing at a rate of 50 ML per hour, she has been started on empiric antibiotics in the form of Rocephin. Lactic acid is currently down to 1.0. Calcium is mildly elevated at 10.3, AST was 53, the rest of the LFTs were normal, troponin was negative 1, CK was elevated at 733, likely related to falls. She is awake and alert, afebrile, hemodynamically stable, room air pulse ox is 97%, and were asked to see her in evaluation for the new finding of the left upper lobe mass Review of Systems All systems: negative Constitutional: Reports chronic pain, Reports weakness, Denies chills, Denies fever Eyes: denies blurred vision, denies pain Ears, nose, mouth and throat: Denies headache, Denies sore throat Cardiovascular: Denies chest pain, Denies shortness of breath Respiratory: Denies cough Gastrointestinal: Denies abdominal pain, Denies diarrhea, Denies nausea, Denies vomiting Genitourinary: Denies dysuria, Denies hematuria Musculoskeletal: Denies myalgias Integumentary: Denies pruritus, Denies rash Neurological: Reports balance difficulties, Reports gait dysfunction, Reports weakness, Denies numbness Psychiatric: Denies anxiety, Denies depression Endocrine: Denies fatigue, Denies weight change Past Medical History Past Medical History: Cancer, Fibromyalgia, GERD/Reflux, Hyperlipidemia, Hypertension, Osteoarthritis (OA), Pulmonary Embolus (PE) Additional Past Medical History / Comment(s): Breast Ca 1998, hx PE, neck pain down right arm, down spine & both legs, some kind of clotting gene per pt., migraines, IBS, History of Any Multi-Drug Resistant Organisms: None Reported Past Surgical History: Breast Surgery, Cholecystectomy, Orthopedic Surgery, Tonsillectomy Additional Past Surgical History / Comment(s): left breast Lumpectomy; left Knee arthroscopy, kip cataracts removed Past Anesthesia/Blood Transfusion Reactions: No Reported Reaction Past Psychological History: Anxiety, Depression Smoking Status: Former smoker Past Alcohol Use History: Daily Additional Past Alcohol Use History / Comment(s): quit smoking 4 yrs ago, smoked for 30 yrs, < 1 PPD. No illicit drug use. Patient drinks of vodka drinking daily. She denies any seizure activity with withdrawal from alcohol. Past Drug Use History: None Reported - Past Family History Brother(s) Family Medical History: Coronary Artery Disease (CAD) Additional Family Medical History / Comment(s): Patient has one brother with hi story of coronary artery disease. Patient is on every sisters. Patient has 2 children with no major medical problems. Mother Family Medical History: Cancer Additional Family Medical History / Comment(s): Mother is with history of pancreatic cancer and melanoma. Father Family Medical History: Cancer Additional Family Medical History / Comment(s): Father is with history of bladder cancer. Medications and Allergies Home Medications Medication Instructions Recorded Confirmed Type Atorvastatin [Lipitor] 10 mg PO HS 05/09/15 05/24/19 History Omeprazole 20 mg PO HS 05/10/15 05/24/19 History B12/Levomefolate Calcium/B-6 1 tab PO HS 03/24/19 05/24/19 History [Foltx Tablet] DULoxetine HCL [Cymbalta] 60 mg PO HS 03/24/19 05/24/19 History Magnesium Oxide [Mag-Ox] 400 mg PO TID 03/24/19 05/24/19 History Metoprolol Tartrate [Lopressor] 25 mg PO BID 03/24/19 05/24/19 History Rivaroxaban [Xarelto] 15 mg PO HS 03/24/19 05/24/19 History Diphenox-Atrop 2.5-0.025 mg 1 tab PO QID PRN 03/31/19 05/24/19 History [Lomotil] traZODone HCL [Desyrel] 50 mg PO HS PRN 03/31/19 05/24/19 History Cholecalciferol [Vitamin D3 (25 5,000 unit PO HS 05/24/19 05/24/19 History Mcg = 1000 Iu)] HYDROcodone/APAP 7.5-325MG [[place] 1 tab PO BID 05/24/19 05/24/19 History 7.5-325] Allergies Allergy/AdvReac Type Severity Reaction Status Date / Time No Known Allergies Allergy Verified 05/24/19 20:03 Physical Exam Vitals: Vital Signs Temp Pulse Pulse Resp BP BP Pulse Ox 05/25/19 12:03 97.6 F 88 18 107/69 97 05/25/19 09:00 97 05/25/19 05:35 97.5 F L 93 18 117/72 97 05/25/19 02:18 98.3 F 93 18 120/71 97 05/24/19 22:53 98.7 F 94 16 129/82 96 05/24/19 21:55 97.6 F 98 16 137/89 97 05/24/19 21:29 89 16 05/24/19 20:42 99 16 108/76 93 L 05/24/19 17:47 97.8 F 105 H 18 121/85 95 Intake and Output 05/24/19 05/25/19 05/25/19 22:59 06:59 14:59 Other: Voiding Method Toilet Toilet Diaper Diaper # Voids 3 # Bowel Movements 3 Weight 81.647 kg GENERAL EXAM: Alert, pleasant, 73-year-old white female on room air, does not appear to be in any acute distress comfortable in no apparent distress. HEAD: Normocephalic/atraumatic. Patient appears to be wearing a wig EYES: Normal reaction of pupils, equal size. Conjunctiva pink, sclera white. NOSE: Clear with pink turbinates. THROAT: No erythema or exudates. NECK: No masses, no JVD, no thyroid enlargement, no adenopathy. CHEST: No chest wall deformity. Symmetrical expansion. LUNGS: Equal air entry with no crackles, wheeze, rhonchi or dullness. CVS: Regular rate and rhythm, normal S1 and S2, no gallops, no murmurs, no rubs ABDOMEN: Soft, nontender. No hepatosplenomegaly, normal bowel sounds, no guarding or rigidity. EXTREMITIES: No clubbing, no edema, no cyanosis, 2+ pulses and upper and lower extremities. MUSCULOSKELETAL: Muscle strength and tone normal. SPINE: No scoliosis or deformity SKIN: No rashes CENTRAL NERVOUS SYSTEM: Alert and oriented -3. No focal deficits, tone is normal in all 4 extremities. PSYCHIATRIC: Alert and oriented -3. Appropriate affect. Intact judgment and insight. Results - Laboratory Findings CBC and BMP: 05/24/19 20:30 05/24/19 20:30 PT/INR, D-dimer PT 10.1 sec (9.0-12.0) 05/24/19 20:30 INR 0.9 (<1.2) 05/24/19 20:30 Abnormal lab findings: Abnormal Labs 05/24/19 05/24/19 05/24/19 20:30 20:30 20:30 WBC 13.9 H Neutrophils # 10.6 H Sodium 133 L Chloride 97 L Creatinine 1.20 H Glucose 104 H Plasma Lactic Acid Evert 2.6 H* Calcium 10.3 H AST 53 H Creatine Kinase 733 H Urine Appearance Ur Specific [place] Urine Protein Urine Ketones Urine Blood Urine Nitrite Ur Leukocyte Esterase Urine RBC Urine WBC Urine WBC Clumps Ur Squamous Epith Cells Urine Bacteria 05/24/19 22:45 WBC Neutrophils # Sodium Chloride Creatinine Glucose Plasma Lactic Acid Evert Calcium AST Creatine Kinase Urine Appearance Turbid H Ur Specific [place] 1.038 H Urine Protein 2+ H Urine Ketones 1+ H Urine Blood Moderate H Urine Nitrite Positive H Ur Leukocyte Esterase Large H Urine RBC 111 H Urine WBC >182 H Urine WBC Clumps Many H Ur Squamous Epith Cells 5 H Urine Bacteria Many H - Diagnostic Findings Chest x-ray: report reviewed, image reviewed CT scan - chest: report reviewed, image reviewed Additional studies: Hips/pelvis x-ray, brain CT results reviewed Assessment and Plan Plan: Assessment: #1. Left upper lobe spiculated lung mass with extensive mediastinal lymphadenopathy, could be related to lung cancer or recurrence of breast cancer #2. Acute urinary tract infection #3. Falls, weakness #4. Mild lactic acidosis related to UTI, improved with fluid resuscitation #5. Acute kidney injury #6. History of left breast cancer status post lumpectomy and radiation in 1997 #7. 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 History of pulmonary embolisms, related to homocysteinemia, on chronic Xarelto #9. Hypertension #10. Hyperlipidemia #11. Migraine headaches #12. Ex-smoker, quit smoking 4 years ago, did smoke 35-40 years less than a pack a day Plan: We'll consult interventional radiology for possibility of transthoracic CT- guided biopsy of the left upper lobe mass. Patient is on Xarelto, for history of homocystinemia, we'll follow interventional radiologist recommendations for anticoagulation hold. Continue all current medical treatments. Left upper lobe mass is highly suspicious for malignancy either related to primary lung or breast cancer recurrence. We'll continue to follow I performed a history & physical examination of the patient and discussed their management with my nurse practitioner, Amy Grey. I reviewed the nurse practitioner's note and agree with the documented findings and plan of care. Lung sounds are positive for clear breath sounds. The findings and the impress ion was discussed with the patient. I attest to the documentation by the nurse practitioner. Time with Patient: Greater than 30
--- NOTE | 2019-05-25 14:22 | P.HPIM ---
History of Present Illness H&P Date: 05/25/19 Chief Complaint: Weakness lower extremities weakness right upper extremity This is a 73-year-old female patient of Dr. Burton with past medical history of multilevel disc herniation C3-C4, C4-5 disc bulging and facet arthropathy C5 6 disc bulging and facet joint hypertrophy, C6 7 disc herniation multilevel canal stenosis. She has been under the care of pain management and underwent cervical epidural steroid injection C7-T1 on April [address] Vaz. Patient gives history that about 4 1/2 months ago she started having pain in her neck and then it gradually went into her thoracic area adjacent to the right arm until the thumb. At that initial time, her legs did not cause any problem she did not have any low back pain. She subsequently developed all over muscle aches. She was admitted from our facility 04/29/2019, MRIs lumbar spine MRI cervical spine done at that time and was seen by Dr. Conway. She was arm prescribed prednisone to go home on, and outpatient physical therapy, was seen by Dr. Conway post hospital follow-up, and has recommended a neurologist to evaluate her for ongoing weakness of the arm and the lower extremities. Patient complains of weakness right arm, and weakness of the left lower leg is now chronic. Imaging studies during her last admission 04/29/2019 includedCAT scan of the lumbar spine showed advanced degenerative disc disease throughout as well as hypertrophic facet arthropathy and Baastrup's disease. Variable mild spinal canal stenosis due to posterior disc bulges. Variable neural foraminal stenosis severe at the left L5-S1. Bile duct dilated 1.1 cm probably secondary to postcholecystectomy status post patient age. Tiny hiatal hernia and sigmoid diverticulosis. MRI cervical spine 03/12/2019 C2-C3 small broad-based disc bulge without spinal stenosis C3-C4 left paracentral disc herniation mild spinal canal stenosis left, C4-C5 disc bulge with mild spinal canal stenosis left right neural foraminal narrowing C5-C6 facet arthropathy, severe left neural foraminal narrowing and mild right neural foraminal narrowing mild spinal canal stenosis C6-C7 disc bulge mild bilateral neural foraminal narrowing without spinal stenosis, C7-T1 central disc herniation, without spinal canal stenosis nor neural foraminal narrowing History of breath breast cancer 20 years ago with lumpectomy and radiation, fibromyalgia, gastroesophageal reflux disease, hypertension, hyperlipidemia, generalized osteoarthritis, pulmonary embolus 4 years ago on Xarelto, migraine headaches, irritable bowel syndrome, intermittent tobacco smoking, after quitting tobacco several years ago and daily alcohol intake. In the emergency room with her presentation of theright upper extremity left ower extremity weakness, patient has generalized myalgia and has difficulty in ambulating. Patient has fallen, and had fell on her buttocks, imaging studies ER, CAT scan of the brain mild atrophy no acute intracranial abnormality, no mas s effect no midline shift. However chest x-ray shows something significant, masslike left midlung density is a change, new mediastinal adenopathy, density in the right paratracheal region could be mediastinal lymphadenopathy, no pleural effusion,bony thorax appears intact 3 cm masslike infiltrate left mid lung. CAT scan of the chest with IV contrast shows 3.3 x 4.4 x 3 cm spiculated mass lesion in the anterior inferior aspect of the left upper lobe compatible with neoplasm, anterior lateral aspect of this mass lesion has a pleural-based component, there is right pleural effusion and subsegmental atelectasis right lung base, paratracheal lymph node, fatty infiltration of liver, mild central intrahepatic and adnexa hepatic duct dilatation noted of unknown etiology, probable left adrenal adenoma. After the state patient does not have any left thoracic pain, no hemoptysis, no cough, no pleurisy, no weight loss, appetite is marginally okay,. Urinalysis shows gravity of 1.038, nitrite positive, urine WBC 182, urine RBC 111, lactic acid 2.6 elevated, liver function test is normal except AST 53 slightly elevated, troponin 0.012, CK 7.33 patient consult would be made with Dr. Newell, Dr. huizar and, IV antibiotic for presumed urinary tract infection, Dr. Kim for neurology, for upper and lower extremity weakness, MRI of the brain to be done. EMG would need to be process at as an outpatient Review of Systems Constitutional: Reports as per HPI, Denies anorexia, Denies chills, Denies chronic headaches, Denies chronic pain, Denies daytime sleepiness, Denies fatigue, Denies fever, Denies lethargy, Denies malaise, Denies night sweats, Denies poor appetite, Denies sweats, Denies weakness, Denies weight gain, Denies weight loss Ears, nose, mouth and throat: Reports as per HPI, Reports ant. neck pain (Right side) Cardiovascular: Reports as per HPI, Denies chest pain, Denies claudication, Denies decreased exercise tolerance, Denies dyspnea on exertion, Denies edema, Denies high blood pressure, Denies irregular heart beat, Denies leg edema, Denies lightheadedness, Denies orthopnea, Denies palpitations, Denies paroxysmal nocturnal dyspnea, Denies phlebitis, Denies rapid heart beat, Denies shortness of breath, Denies syncope Respiratory: Reports as per HPI, Denies congestion, Denies cough, Denies cough with sputum, Denies dyspnea, Denies excessive sputum, Denies hemoptysis, Denies home oxygen, Denies pain, Denies pain on inspiration, Denies pleurisy, Denies respiratory infections, Denies sleep apnea, Denies snoring, Denies wheezing Gastrointestinal: Reports as per HPI, Denies abdominal pain, Denies belching, Denies bloating, Denies BRBPR, Denies change in bowel habits, Denies coffee ground emesis, Denies constipation, Denies diarrhea, Denies dyspepsia, Denies early satiety, Denies excessive gas, Denies heartburn, Denies hematemesis, Denies hematochezia, Denies indigestion, Denies jaundice, Denies lactose intolerance, Denies loss of appetite, Denies melena, Denies nausea, Denies vomiting Genitourinary: Reports as per HPI, Denies abnormal vaginal bleeding, Denies decreased libido, Denies difficulty conceiving, Denies difficulty voiding, Denies dysmenorrhea, Denies dyspareunia, Denies dysuria, Denies flank pain, Denies genital sores, Denies hematuria, Denies hot flashes, Denies incomplete em ptying, Denies kidney stones, Denies menorrhagia, Denies mixed incontinence, Denies nocturia, Denies pelvic pain, Denies post void dribbling, Denies , Denies prolapse symptoms, Denies stress incontinence, Denies urge incontinence, Denies urgency, Denies urinary frequency, Denies vaginal disc harge, Denies vaginal dryness, Denies vaginal itching, Denies vaginal odor Menstruation: Reports as per HPI Musculoskeletal: Reports as per HPI Integumentary: Reports as per HPI Neurological: Reports as per HPI, Denies aphasia, Denies ataxia, Denies balance difficulties, Denies burning pain, Denies change in mentation, Denies change in smell/taste, Denies change in speech, Denies confusion, Denies convulsions, Denies double vision, Denies gait dysfunction, Denies head injury, Denies headaches, Denies hearing difficulties, Denies lack of coordination, Denies loss of vision, Denies memory loss, Denies migraines, Denies motor disturbance, Denies numbness, Denies paralysis, Denies paresthesias, Denies seizures, Denies sensory deficit, Denies spasticity, Denies syncope, Denies tic, Denies tingling, Denies transient paralysis, Denies tremors, Denies vertigo, Denies weakness, Denies visual changes Psychiatric: Reports as per HPI, Denies anhedonia, Denies anxiety, Denies anxiety attacks, Denies change in appetite, Denies change in libido, Denies change in sleep habits, Denies confusion, Denies depression, Denies difficulty concentrating, Denies disorientation, Denies hallucinations, Denies hopelessness, Denies hypersomnia, Denies insomnia, Denies irritability, Denies memory loss, Denies mood swings, Denies paranoia, Denies sadness/tearfulness, Denies sleep disturbances, Denies suicidal ideation Endocrine: Reports as per HPI, Denies cold intolerance, Denies deepening of the voice, Denies excessive sweating, Denies excessive thirst, Denies fatigue, Denies flushing, Denies heat intolerance, Denies high blood sugars, Denies increase in ring/shoe/hat size, Denies low blood sugars, Denies nocturia, Denies palpitations, Denies polydipsia, Denies polyphagia, Denies polyuria, Denies proptosis, Denies recent glucocorticoid use, Denies thyroid mass, Denies weight change Hematologic/Lymphatic: Reports as per HPI Allergic/Immunologic: Reports as per HPI, Denies allergic rhinitis, Denies anaphylaxis, Denies angioedema, Denies gluten intolerance, Denies persistent infections, Denies seasonal allergies, Denies urticaria, Denies wheezing Past Medical History Past Medical History: Cancer, Fibromyalgia, GERD/Reflux, Hyperlipidemia, Hypertension, Osteoarthritis (OA), Pulmonary Embolus (PE) Additional Past Medical History / Comment(s): Breast Ca 1998, hx PE, neck pain down right arm, down spine & both legs, some kind of clotting gene per pt., migraines, IBS, History of Any Multi-Drug Resistant Organisms: None Reported Past Surgical History: Breast Surgery, Cholecystectomy, Orthopedic Surgery, Tonsillectomy Additional Past Surgical History / Comment(s): left breast Lumpectomy; left Knee arthroscopy, kip cataracts removed Past Anesthesia/Blood Transfusion Reactions: No Reported Reaction Past Psychological History: Anxiety, Depression Smoking Status: Former smoker Past Alcohol Use History: Daily Additional Past Alcohol Use History / Comment(s): quit smoking 4 yrs ago, smoked for 30 yrs, < 1 PPD. No illicit drug use. Patient drinks of vodka drinking daily. She denies any seizure activity with withdrawal from alcohol. Past Drug Use History: None Reported - Past Family History Brother(s) Family Medical History: Coronary Artery Disease (CAD) Additional Family Medical History / Comment(s): Patient has one brother with history of coronary artery disease. Patient is on every sisters. Patient has 2 children with no major medical problems. Mother Family Medical History: Cancer Additional Family Medical History / Comment(s): Mother is with history of pancreatic cancer and melanoma. Father Family Medical History: Cancer Additional Family Medical History / Comment(s): Father is with history of bladder cancer. Medications and Allergies Home Medications Medication Instructions Recorded Confirmed Type Atorvastatin [Lipitor] 10 mg PO HS 05/09/15 05/24/19 History Omeprazole 20 mg PO HS 05/10/15 05/24/19 History B12/Levomefolate Calcium/B-6 1 tab PO HS 03/24/19 05/24/19 History [Foltx Tablet] DULoxetine HCL [Cymbalta] 60 mg PO HS 03/24/19 05/24/19 History Magnesium Oxide [Mag-Ox] 400 mg PO TID 03/24/19 05/24/19 History Metoprolol Tartrate [Lopressor] 25 mg PO BID 03/24/19 05/24/19 History Rivaroxaban [Xarelto] 15 mg PO HS 03/24/19 05/24/19 History Diphenox-Atrop 2.5-0.025 mg 1 tab PO QID PRN 03/31/19 05/24/19 History [Lomotil] traZODone HCL [Desyrel] 50 mg PO HS PRN 03/31/19 05/24/19 History Cholecalciferol [Vitamin D3 (25 5,000 unit PO HS 05/24/19 05/24/19 History Mcg = 1000 Iu)] HYDROcodone/APAP 7.5-325MG [Sondheimer 1 tab PO BID 05/24/19 05/24/19 History 7.5-325] Allergies Allergy/AdvReac Type Severity Reaction Status Date / Time No Known Allergies Allergy Verified 05/24/19 20:03 Physical Exam Vitals: Vital Signs Temp Pulse Pulse Resp BP BP Pulse Ox 05/25/19 12:03 97.6 F 88 18 107/69 97 05/25/19 09:00 97 05/25/19 05:35 97.5 F L 93 18 117/72 97 05/25/19 02:18 98.3 F 93 18 120/71 97 05/24/19 22:53 98.7 F 94 16 129/82 96 05/24/19 21:55 97.6 F 98 16 137/89 97 05/24/19 21:29 89 16 05/24/19 20:42 99 16 108/76 93 L 05/24/19 17:47 97.8 F 105 H 18 121/85 95 Intake and Output 05/24/19 05/25/19 05/25/19 22:59 06:59 14:59 Other: Voiding Method Toilet Toilet Diaper Diaper # Voids 3 # Bowel Movements 3 Weight 81.647 kg - Constitutional General appearance: cooperative, no acute distress - EENT Eyes: anicteric sclerae, EOMI, dentition normal, normal appearance ENT: NA/AT, normal oropharynx - Neck Neck: normal ROM - Respiratory Respiratory: bilateral: CTA, negative: diminished, dullness - Cardiovascular Rhythm: regular Heart sounds: normal: S1, S2 Abnormal Heart Sounds: no systolic murmur, no diastolic murmur, no rub, no S3 Gallop, no S4 Gallop, no click, no other - Gastrointestinal General gastrointestinal: normal bowel sounds, soft - Integumentary Integumentary: decreased turgor, normal - Neurologic Neurologic: CNII-XII intact - Musculoskeletal Musculoskeletal: generalized weakness (Right upper extremity 3 4/5, left lower extremity 4+ over 5) - Psychiatric Psychiatric: A&O x's 3, appropriate affect, intact judgment & insight Results CBC & Chem 7: 05/24/19 20:30 05/24/19 20:30 Labs: Abnormal Lab Results - Last 24 Hours (Table) 05/24/19 05/24/19 05/24/19 Range/Units 20:30 20:30 20:30 WBC 13.9 H (3.8-10.6) k/uL Neutrophils # 10.6 H (1.3-7.7) k/uL Sodium 133 L (137-145) mmol/L Chloride 97 L (98-107) mmol/L Creatinine 1.20 H (0.52-1.04) mg/dL Glucose 104 H (74-99) mg/dL Plasma Lactic Acid Evert 2.6 H* (0.7-2.0) mmol/L Calcium 10.3 H (8.4-10.2) mg/dL AST 53 H (14-36) U/L Creatine Kinase 733 H (30-135) U/L Urine Appearance (Clear) Ur Specific [place] (1.001-1.035) Urine Protein (Negative) Urine Ketones (Negative) Urine Blood (Negative) Urine Nitrite (Negative) Ur Leukocyte Esterase (Negative) Urine RBC (0-5) /hpf Urine WBC (0-5) /hpf Urine WBC Clumps (None) /hpf Ur Squamous Epith Cells (0-4) /hpf Urine Bacteria (None) /hpf 05/24/19 Range/Units 22:45 WBC (3.8-10.6) k/uL Neutrophils # (1.3-7.7) k/uL Sodium (137-145) mmol/L Chloride (98-107) mmol/L Creatinine (0.52-1.04) mg/dL Glucose (74-99) mg/dL Plasma Lactic Acid Evert (0.7-2.0) mmol/L Calcium (8.4-10.2) mg/dL AST (14-36) U/L Creatine Kinase (30-135) U/L Urine Appearance Turbid H (Clear) Ur Specific [place] 1.038 H (1.001-1.035) Urine Protein 2+ H (Negative) Urine Ketones 1+ H (Negative) Urine Blood Moderate H (Negative) Urine Nitrite Positive H (Negative) Ur Leukocyte Esterase Large H (Negative) Urine RBC 111 H (0-5) /hpf Urine WBC >182 H (0-5) /hpf Urine WBC Clumps Many H (None) /hpf Ur Squamous Epith Cells 5 H (0-4) /hpf Urine Bacteria Many H (None) /hpf Microbiology - Last 24 Hours (Table) 05/24/19 22:45 Urine Culture - Preliminary Urine,Catheterized Thrombosis Risk Factor Assmnt - DVT/VTE Prophylaxis DVT/VTE Prophylaxis: Pharmacologic Prophylaxis ordered - Choose All That Apply Any of the Below Risk Factors Present?: Yes Each Factor Represents 1 point: Obesity (BMI >25), Serious lung disease incl. pneumonia (< 1month) Other Risk Factors: Yes Each Risk Factor Represents 2 Points: Age 61-74 years Each Risk Factor Represents 3 Points: History of DVT/PE Other congenital or acquired thrombophilia - If yes, enter type in comment: No Thrombosis Risk Factor Assessment Total Risk Factor Score: 7 Thrombosis Risk Factor Assessment Level: High Risk Assessment and Plan Plan: 1. Acute urinary tract infection, patient is started on IV Rocephin, cultures are sent, IV hydration 2. Lung mass, spiculated left mid lung lobe, 3.3 x 4.4 cm new, patient was seen by Dr. Huizar, and Dr. Coburn, patient would need to be biopsied for this lung mass, tobacco cessation was requested to be done permanently, Xarelto to be held to allow for lung biopsy 3 weakness upper extremity right side, weakness lower extremity left side, MRI of the brain to be done, patient would have an EMG to be done as an outpatient, was set up to see Dr. muhammad as an outpatient by Dr. Conway 4 Degenerative disc disease of lumbar spine and stenosis most severe at the left L5-S1. Multilevel disc herniation of the cervical spine status post cervical epidural steroid injection C7-T1 on April [address] Vaz, pain management. Continue Lyrica 25 mg twice daily. Patient has seen Dr. warren and outpatient, no surgical intervention recommended, he requested a neurologist to see the patient, EMG of the upper extremity to be done, MRI of the brain to evaluate for brain metastases as well as noted degenerative disease of the brain 5 History of breast cancer 20 years ago status post lumpectomy and radiation, stable. 6 Hypertension. Continue lisinopril 10 mg at bedtime, Lopressor 25 mg twice daily. 7 Hyperlipidemia. Continue atorvastatin 10 mg at bedtime. 8 History of pulmonary embolus 4 years ago on Xarelto. Hold Xarelto 15. for lung biopsy 8 Fibromyalgia. Continue current pain management. 9 Migraine headaches, stable. 10 Irritable bowel syndrome. Continue Lomotil as needed. 11. Recurrent depression. Continue Cymbalta 60 mg at bedtime, trazodone 50 mg at bedtime. 12. Remote history of tobacco use and dependence. 13. Daily alcohol use. No history of seizure activity. Monitor for DTs. 14. DVT prophylaxis. Xarelto 15. GI prophylaxis and gastroesophageal reflux disease. Protonix.
--- NOTE | 2019-05-25 17:18 | P.CNNES ---
History of Present Illness Consult date: 05/25/19 Requesting physician: Tia Harley Reason for Consult: Weakness Chief complaint: Weak and falling History of Present Illness: This is a 73 RH female with known probable cervical and lumbar radiculopathies s/p cervical DL at C7-T1 on 04/07/19. She did c/o a 4.5-month h/o progressive weakness in all limbs but more notable in the RUE and LLE, recurrent falls, cervical pain with radiation into the right arm all the way to the thumb and ipsilateral thoracic area. In the lumbar spine, she did have imaging that showed variable mild spinal canal stenosis due to posterior disc bulges and variable neural foraminal stenosis most severe in the left L5 to S1. The patient also has a history of breast cancer 20 years ago status post lumpectomy and radiation. Other possibility history includes hypertension, hyperlipidemia, poor there are embolism 4 years ago on Xarelto, migraine, irritable bowel syndrome, intermittent tobacco use, fibromyalgia, gastroesophageal reflux disease and daily alcohol intake. When the patient was in the emergency room earlier today, she was noted to have right upper extremity and left lower extremity weakness. She also complained of generalized myalgia and difficulty with ambulation. She did fall and land on her buttocks. She did undergo a CT of the brain that did not show anything acute on admission. She did have a CT of the chest that showed a spiculated mass in the anterior inferior aspect of the left upper lobe consistent with new plasm. Hemorrhage team has already ordered an MRI of the brain with and without contrast to rule out the possibility of [employer] metastasis. Neurology was consulted because of her extremity weakness. Patient states that throughout the 4.5 months when she was getting weaker, she went through multiple courses of steroid taper for inflammation. Review of Systems 14-point ROS performed and as per HPI. Neurologically, patient denies decreased level or loss of consciousness, headache, seizure, changes in vision, diplopia, amaurosis, changes in hearing, facial droop, ptosis, vertigo, hearing loss, tinnitus, dysarthria, dysphagia, aphasia, other focal numbness/weakness not mentioned above, tremors, bowel/bladder incontinence or ataxia. Past Medical History Past Medical History: Cancer, Fibromyalgia, GERD/Reflux, Hyperlipidemia, Hypertension, Osteoarthritis (OA), Pulmonary Embolus (PE) Additional Past Medical History / Comment(s): Breast Ca 1997, hx PE, neck pain down right arm, down spine & both legs, some kind of clotting gene per pt., migraines, IBS, History of Any Multi-Drug Resistant Organisms: None Reported Past Surgical History: Breast Surgery, Cholecystectomy, Orthopedic Surgery, Tonsillectomy Additional Past Surgical History / Comment(s): left breast Lumpectomy; left Knee arthroscopy, kip cataracts removed Past Anesthesia/Blood Transfusion Reactions: No Reported Reaction Past Psychological History: Anxiety, Depression Smoking Status: Former smoker Past Alcohol Use History: Daily Additional Past Alcohol Use History / Comment(s): quit smoking 4 yrs ago, smoked for 30 yrs, < 1 PPD. No illicit drug use. Patient drinks of vodka drinking daily. She denies any seizure activity with withdrawal from alcohol. Past Drug Use History: None Reported - Past Family History Brother(s) Family Medical History: Coronary Artery Disease (CAD) Additional Family Medical History / Comment(s): Patient has one brother with history of coronary artery disease. Patient is on every sisters. Patient has 2 children with no major medical problems. Mother Family Medical History: Cancer Additional Family Medical History / Comment(s): Mother is with history of pancreatic cancer and melanoma. Father Family Medical History: Cancer Additional Family Medical History / Comment(s): Father is with history of bladder cancer. Medications and Allergies Home Medications Medication Instructions Recorded Confirmed Type Atorvastatin [Lipitor] 10 mg PO HS 05/09/15 05/24/19 History Omeprazole 20 mg PO HS 05/10/15 05/24/19 History B12/Levomefolate Calcium/B-6 1 tab PO HS 03/24/19 05/24/19 History [Foltx Tablet] DULoxetine HCL [Cymbalta] 60 mg PO HS 03/24/19 05/24/19 History Magnesium Oxide [Mag-Ox] 400 mg PO TID 03/24/19 05/24/19 History Metoprolol Tartrate [Lopressor] 25 mg PO BID 03/24/19 05/24/19 History Rivaroxaban [Xarelto] 15 mg PO HS 03/24/19 05/24/19 History Diphenox-Atrop 2.5-0.025 mg 1 tab PO QID PRN 03/31/19 05/24/19 History [Lomotil] traZODone HCL [Desyrel] 50 mg PO HS PRN 03/31/19 05/24/19 History Cholecalciferol [Vitamin D3 (25 5,000 unit PO HS 05/24/19 05/24/19 History Mcg = 1000 Iu)] HYDROcodone/APAP 7.5-325MG [[place] 1 tab PO BID 05/24/19 05/24/19 History 7.5-325] Allergies Allergy/AdvReac Type Severity Reaction Status Date / Time No Known Allergies Allergy Verified 05/24/19 20:03 Physical Examination - Vital Signs Vital Signs: Vital Signs Temp Pulse Pulse Resp BP BP Pulse Ox 05/25/19 12:03 97.6 F 88 18 107/69 97 05/25/19 09:00 97 05/25/19 05:35 97.5 F L 93 18 117/72 97 05/25/19 02:18 98.3 F 93 18 120/71 97 05/24/19 22:53 98.7 F 94 16 129/82 96 05/24/19 21:55 97.6 F 98 16 137/89 97 05/24/19 21:29 89 16 05/24/19 20:42 99 16 108/76 93 L 05/24/19 17:47 97.8 F 105 H 18 121/85 95 Intake and Output 05/25/19 05/25/19 05/25/19 06:59 14:59 22:59 Intake Total 400 Balance 400 Intake: Intake, IV Titration 400 Amount Sodium Chloride 0.9% 1, 400 000 ml @ 50 mls/hr IV . Q20H SEVERINO Rx#:[id number] Other: Voiding Method Toilet Toilet Diaper Diaper # Voids 3 # Bowel Movements 3 Gen NAD Pleasant and cooperative HEENT NCAT Sclera without icterus O/P clear Neck Supple No carotid bruit Cor RRR no m/r/g Lungs CTAB Abd Soft NTND +BS Ext Warm to touch No edema Neuro MS A+Ox4 Normal fluency Able to follow all commands CN PERRL VFF no APD EOMI no nystagmus or MELVIN No facial asymmetry [place]'s symmetric Hearing intact to normal voice bilaterally Speech not dysarthric Equal elevation of palate Tongue midline Sym shrug and SCM bilaterally Motor Normal bulk/tone No pronator drift Cannot lift legs off bed No tremors Strength 4+/5 in BUE 1/5 in proximal BLE 4-/5 in distal BLE including EHL Sens Intact to LT x4 No neglect or extinction +SLR bilaterally Coord No dysmetria on FTN bilaterally DTRs 2+/4 in bilateral biceps, triceps and brachioradialis 0/4 in bilateral pa tella and achilles Toes downgoing bilaterally No clonus at achilles Gait Deferred Results - Laboratory Findings CBC and BMP: 05/24/19 20:30 05/24/19 20:30 Abnormal Lab Findings: Abnormal Labs 05/24/19 05/24/19 05/24/19 20:30 20:30 20:30 WBC 13.9 H Neutrophils # 10.6 H Sodium 133 L Chloride 97 L Creatinine 1.20 H Glucose 104 H Plasma Lactic Acid Evert 2.6 H* Calcium 10.3 H AST 53 H Creatine Kinase 733 H Urine Appearance Ur Specific [place] Urine Protein Urine Ketones Urine Blood Urine Nitrite Ur Leukocyte Esterase Urine RBC Urine WBC Urine WBC Clumps Ur Squamous Epith Cells Urine Bacteria 05/24/19 22:45 WBC Neutrophils # Sodium Chloride Creatinine Glucose Plasma Lactic Acid Evert Calcium AST Creatine Kinase Urine Appearance Turbid H Ur Specific [place] 1.038 H Urine Protein 2+ H Urine Ketones 1+ H Urine Blood Moderate H Urine Nitrite Positive H Ur Leukocyte Esterase Large H Urine RBC 111 H Urine WBC >182 H Urine WBC Clumps Many H Ur Squamous Epith Cells 5 H Urine Bacteria Many H - Diagnostic Findings Additional findings: MRI C-spine wo yusra 03/12/19. Small central disc herniation at C7 to T1 without spinal cord stenosis or neural foraminal stenosis. Left paracentral disc herniation at C3 to C4 with degenerative change creating mild to moderate left n euroforaminal stenosis and mild spinal canal stenosis. Degenerative disc disease creating mild spinal canal stenosis at C4 to C5 and C5 to C6 as well as variable degrees of neuroforaminal stenosis. X-rays L-spine 02/19/19. Severe degenerative disc space narrowing with endplate sclerosis and spondylosis. Severe facet joint arthropathy. No acute fracture. I have reviewed neuroimages myself. Assessment and Plan Assessment: Known cervical and lumbar spondylosis with cervical and lumbar radicular symptoms. Her lower extremities especially proximally are noticeably weaker than the rest of her other muscle groups. This may also be confounded by a myopathy, possibly steroid induced given her recent h/o intermittent steroid use. Since she has probable lung CA, we should scan her central neuroaxis to r/o [employer] metastasis. Plan: -MRI Brain w wo yusra already ordered by primary team -Add MRI cervical and thoracic spine w wo yusra -Will need outpatient EMG/NCS to r/o motor radiculopathies of her upper and lower extremities as well as to screen for myopathy -Trend CK, which is elevated at 733 -Send PN labs: B12, E, SPEP, LD, LDH. Will not send ESR and CRP that will most likely be high given her cancer -PT/OT -DVT prophylaxis -d/w patient and in detail. All questions answered. Thank you for this consultation. Please call with ?. Time with Patient: Greater than 30 (Time spent in direct patient care, greater than 50% of which was spent in fefe-md-whow counseling and coordination of care: 70 minutes)
[2019-05-25] MEDS: HYDROcodone/APAP 7.5-325MG 1 EACH TAB PO PRN (17:49)
[2019-05-25] MEDS ORDERED: RIVAROXABAN 15 MG TAB PO SCH (21:00)
[2019-05-25] MEDS: CHOLECALCIFEROL 1,000 UNIT TAB PO SCH (21:44)
[2019-05-25] MEDS: ATORVASTATIN 10 MG TAB PO SCH (21:44)
[2019-05-25] MEDS: DULoxetine HCL 60 MG CAPSULE.DR PO SCH (21:45)
[2019-05-25] MEDS: CYANOCOBALAMIN-FA-PYRIDOXINE 1 EACH TAB PO SCH (21:45)
[2019-05-25] MEDS: PANTOPRAZOLE 40 MG TABLET PO SCH (21:45)
[2019-05-26] MEDS: SODIUM CHLORIDE 0.9% 1,000 ML IV SCH ×2 (02:05→18:15)
[2019-05-26] MEDS ORDERED: MORPHINE SULFATE 4 MG/ML SYRINGE ONE (05:05)
[2019-05-26 07:29] LABS: Basophils % (A) 0 %; Eosinophils # (A) 0.2 k/uL (0-0.7); Eosinophils % (A) 2 %; HCT 36.8 % (34.0-46.0); HGB 12.3 gm/dL (11.4-16.0); Lymphocytes # (A) 1.7 k/uL (1.0-4.8); Lymphocytes % (A) 25 %; MCH 33.3 pg (25.0-35.0); MCHC 33.4 g/dL (31.0-37.0); MCV 99.7 fL (80.0-100.0); Mean Platelet Volume 6.9; Monocytes # (A) 0.5 k/uL (0-1.0); Monocytes % (A) 7 %; Neutrophils # (A) 4.3 k/uL (1.3-7.7); Neutrophils % (A) 63 %; Platelet Count 245 k/uL (150-450); RDW 13.9 % (11.5-15.5); WBC 6.7 k/uL (3.8-10.6)
[2019-05-26 07:56] LABS: Albumin 2.8 g/dL (3.5-5.0); Calcium 8.8 mg/dL (8.4-10.2); Potassium 3.3 mmol/L (3.5-5.1); Total Bilirubin 0.6 mg/dL (0.2-1.3); Total Protein 5.1 g/dL (6.3-8.2)
[2019-05-26] MEDS: METOPROLOL TARTRATE 25 MG TAB PO SCH ×2 (09:01→22:06)
[2019-05-26] MEDS: MAGNESIUM OXIDE 400 MG TAB PO SCH ×3 (09:01→22:06)
[2019-05-26] MEDS ORDERED: POTASSIUM CHLORIDE ER 20 MEQ TAB.ER PO STA (10:46)
[2019-05-26] MEDS: MORPHINE SULFATE 4 MG/ML SYRINGE IV PRN ×2 (11:24→22:11)
[2019-05-26 11:49] LABS: Protein, Total 4.7 g/dL (6.2-8.2)
--- NOTE | 2019-05-26 11:55 | MR ---
EXAMINATION TYPE: MR brain wo/w con DATE OF EXAM: 05/26/2019 COMPARISON: None HISTORY: Mets TECHNIQUE: Multiplanar, multisequence images of the brain and brainstem is performed without and with IV contras t, utilizing 8 mL intravenous Gadavist . FINDINGS: Exam limited by motion artifact. Diffusion weighted images demonstrate no evidence of a recent infarct or other diffusion abnormality. There is mild to moderate generalized degenerative change with diffuse and focal areas of abnormal si gnal in the white matter which are nonspecific but most typical extensive remote white matter ischemi a. Midline structures demonstrate normal morphology. The craniocervical junction appears within normal limits. Post contrast images demonstrate a punctate 2 mm enhancement in the right cerebellar hemisph ere on postcontrast axial image 8. Early metastases not excluded. 3 mm enhancement seen in the region of the right 7th and 8th cranial nerve. No additional suspicious areas of enhancement are seen.. The dural venous sinuses appear patent. Changes of chronic sinusitis are noted. IMPRESSION: 1. There is a punctate 2 mm enhancement in the right cerebellar hemisphere too small to characterize. Early metastasis in the differential diagnosis. 2. Degenerative and nonspecific white matter changes most typical remote microvascular ischemia. 3. Faint enhancement right seventh\8th cranial nerve complex. Tiny acoustic neuroma in the differenti al diagnosis. Dedicated IAC MRI could BE obtained.
--- NOTE | 2019-05-26 12:13 | MR ---
EXAMINATION TYPE: MR cervical spine wo/w con DATE OF EXAM: 05/26/2019 COMPARISON: 03/12/2019 HISTORY: Bilateral weakness TECHNIQUE: T1 sagittal and coronal, T2 sagittal, and gradient echo axial views of the cervical spine are submitted. FINDINGS: The cranial cervical junction is preserved. There is no abnormal signal seen within the sp inal cord or paraspinal soft tissues. Marrow signal alteration within C2 stable from prior exam and l ikely chronic. No definite destructive changes seen. This could be correlated with bone scan as clini brooks warranted. C2-C3: There is a small broad-based disc bulge without spinal canal stenosis nor neural foraminal lolis rowing. C3-C4: There is a left paracentral disc herniation with uncovertebral hypertrophy and facet arthropat hy contributing to mild to moderate left neural foraminal narrowing and mild spinal canal stenosis. N o right neural foraminal narrowing. C4-C5: There is a broad-based disc bulge narrowing the ventral subarachnoid space in combination with uncovertebral hypertrophy and facet arthropathy creating moderate right neural foraminal narrowing a nd mild left neural foraminal narrowing as well as mild spinal canal stenosis. C5-C6: There is a broad-based disc bulge narrowing the ventral subarachnoid space. This in combinatio n with facet arthropathy and ligamentum flavum buckling create severe left neural foraminal narrowing and mild right neural foraminal narrowing as well as mild spinal canal stenosis. C6-C7: There is a broad-based disc bulge examination with uncovertebral hypertrophy and facet arthrop athy creating mild bilateral neural foraminal narrowing without spinal canal stenosis. C7-T1: There is a central disc small protrusion slightly narrowing the ventral subarachnoid space wit hout spinal canal stenosis nor neural foraminal narrowing. IMPRESSION: 1. Small central disc protrusion or small herniation at C7-T1 without spinal canal stenosis nor neura l foraminal narrowing. Findings stable. 2. Left paracentral disc herniation at C3-C4 with degenerative change creating mild to moderate left neural foraminal narrowing and mild spinal canal stenosis. 3. Degenerative disc disease create mild spinal canal stenosis at C4-C5 and C5- C6 as well as variabl e degrees of neural foraminal narrowing. 4. No destructive changes seen. Marrow signal within the osseous structures are stable relative to th e prior exam. EXAMINATION TYPE: MR thoracic spine wo/w con DATE OF EXAM: 05/26/2019 COMPARISON: None HISTORY: Bilateral weakness CONTRAST: Standard multiplanar, multisequence MRI departmental protocol utilizing 8 mL intravenous Gadavist yusra olinium contrast. FINDINGS: Exam significantly limited by motion artifact. There is heterogeneous marrow signal without evidence of discrete intraosseous lesion or destructive change. Abnormal signal noted within the T4 vertebral tibial segment is most typical of a hemangioma. There appears to be mediastinal lymphadenopathy and left upper lobe lung mass suspicious for malignan cy. Bilateral lower lobe consolidation and tiny effusions noted. No abnormal signal the visualized spinal cord. There is multilevel severe degenerative disc disease a nd hypertrophic changes. The T1-T2 there is right paracentral disc small herniation. Mild right foraminal encroachment. At T2-T3 there is central and right paracentral disc bulging with flattening the thecal sac. No spina l cord contact. Neural foramina patent. At T3-T4 no disc herniation or canal stenosis. Neural foramina patent. At T4-T5 there is a small central disc herniation. No spinal cord contact. At T5-T6 there is a small focal disc herniation. No spinal cord contact or foraminal encroachment At T6-T7 there is a small focal disc herniation which abuts the anterior margin of the spinal cord. At T8-T9 broad-based disc bulging but no canal stenosis or foraminal encroachment At T9-T10 no disc herniation or canal stenosis. No foraminal encroachment. At T10-T11 no disc herniation or canal stenosis. Mild broad-based disc bulging. T11-T12 no disc herniation or canal stenosis. Neural foramina patent. IMPRESSION: Exam limited by marked patient motion artifact. 1. Multilevel severe degenerative disc disease with multilevel disc small central herniations as disc ussed above. Disc herniation at T6-T7 abuts the anterior margin of the spinal cord. 2. Marrow signal is diffusely heterogeneous without evidence of discrete lesion, or diagnostic eviden ce of metastasis, destructive lesion. 3. Left upper lobe lung mass with mediastinal adenopathy suspicious for malignancy.
--- NOTE | 2019-05-26 12:22 | PN ---
PROGRESS NOTE DATE OF SERVICE: 05/26/2019 This is a 73-year-old female who was admitted to the hospital because of weakness and falling. The patient apparently fell 3 times at home. She could not get up. She was profoundly weak. For that reason, she was taken to the hospital to be evaluated. She was discovered to have urinary tract infection. In addition, she was found to have a left upper lobe spiculated mass with extensive mediastinal adenopathy. It looks like she has bilateral hilar adenopathy and if this is a lung cancer, she likely has N3 disease. The patient is currently very weak. She is currently being treated with Rocephin for a urinary tract infection. She is also on blood thinners because she has a history of hyperhomocysteinemia and a history of pulmonary embolism. I talked to her today about the plan. We did talk to Interventional Radiology about a fine-needle aspiration biopsy of the lesion in the left lung. They could biopsy this lesion if we would like it to be done. I think probably the better part of valor in this case would be to get her treated for a urinary tract infection. She can see me in the office next week. I have already talked to the nurse about getting her set up for an outpatient PET scan. That is done here in town on either Fridays or Saturdays. That way, when we decide what we want to biopsy, we can possibly get a biopsy and a stage at the same time. She may benefit from bronchoscopy or fine-needle or a more distant biopsy depending on the results of the PET scan. Currently, she is feeling a bit better than she did, but still feels sort of weak and out of sorts. Currently, her temperature is 98.1, heart rate 87, respiratory rate 16, blood pressure 124/66 mean 85, room air saturation 94%. She appears in no acute distress. HEENT: Examination is grossly unremarkable. Mucous membranes are moist. NECK: Supple. Full range of motion. No adenopathy. CARDIOVASCULAR: Examination reveals regular rhythm and rate. Heart rate 87. LUNGS: Reveal mostly clear breath sounds. A few scattered mild rhonchi. No wheezes or crackles. ABDOMEN: Soft. EXTREMITIES: Intact. No cyanosis, clubbing, or edema. SKIN: Without rash. NEUROLOGIC: Examination is brief but nonfocal. The chest x-ray showed evidence of a lesion in the left mid lung. A brain CT was done. It showed no acute intracranial abnormality just some some mild atrophy. Hip and pelvic x-rays showed no evidence of any fracture. The patient's CT scan shows a lesion in the left upper lobe as well as both extensive mediastinal adenopathy, both ipsilateral and contralateral adenopathy. Additional x-rays were done but not officially resulted as yet. LABS: Reviewed. White count 6.7, hemoglobin 12.3, hematocrit 36.8, platelet count 345,000, sodium 139, potassium 3.3, chloride is 105, CO2 is 28, anion gap 6, BUN and creatinine were 16 and 0.98. Lactic acid was 2.6 down to 1.0. The rest of the labs look pretty good. Her urine does show evidence of a urinary tract infection. Her leukocyte esterase was positive, for nitrite was positive. She had many WBCs and many WBCs clumps and many bacteria. Microbiology is currently still pending. Medications are reviewed. She is currently on Rocephin for her urinary tract infection. The rest of the medications are appropriate. ASSESSMENT: 1. Spiculated mass left upper lobe with extensive mediastinal adenopathy including ipsilateral and contralateral adenopathy, suggestive of bronchogenic carcinoma. 2. Acute urinary tract infection. 3. Multiple falls with weakness and a normal CT scan of the brain. 4. Mild lactic acidosis, likely related to urinary tract infection, resolved. 5. Acute kidney injury. 6. History of left breast cancer, status post lumpectomy and radiation. 7. Fibromyalgia, with chronic pain syndrome with multilevel disc herniation of the cervical spine. 8. History of pulmonary embolism secondary to hyperhomocysteinemia. 9. Hypertension. 10.Hyperlipidemia. 11.Migraine cephalgia. 12.Previous history of tobacco use. PLAN: The patient's Xarelto will be restarted. No plans for intervention at this time. The patient needs an outpatient PET scan. Additional recommendations and suggestions are forthcoming. Interventional Radiology did state that they could biopsy this lesion if necessary. Additional recommendations and suggestions are forthcoming. MMODL / IJN: [id number] /
--- NOTE | 2019-05-26 13:44 | P.CONS ---
History of Present Illness - Reason for Consult Consult date: 05/26/19 lung mass Requesting physician: Tia Harley - Chief Complaint Peristent and worsening weakness - History of Present Illness This is a 73-year-old female patient of Dr. Burton with past medical history of multilevel disc herniation (C3-C4, C4-5 disc bulging and facet arthropathy C5 6 disc bulging and facet joint hypertrophy, C6 7 disc herniation multilevel canal stenosis). She has been under the care of pain management and underwent cervical epidural steroid injection C7-T1 on April [address] Vaz. She states approximately 4 or 5 months ago she started having pain in neck area which worsened to middle back and then radiated to arm and thumb. She did have outpatient MRIs of her lumbar spineand cervical spine and further evalaution with [id number] Dr. Conway. She was given prednisone and outpatient physical therapy. Weakness in her arm and now the lower extremities, Ortho referred for further evaluation to Neurology. Right arm and left lower leg weakness. She has known malignancy history of breath breast cancer 20 years ago with lump ectomy and radiation, hypertension, hyperlipidemia, osteoarthritis, pulmonary embolus 4 years ago on Xarelto, migraine headaches, irritable bowel syndrome, Also a history of remote tobacco abuse and daily alcohol intake. She presented to emergency for progressive symptoms of RUE and LLE weakness and now inability to ambulate. She has had recent falls. During Emergency work up a chest x-ray showed, masslike left midlung density is a change, new mediastinal adenopathy, density in the right paratracheal region could be mediastinal lymphadenopathy, no pleural effusion,bony thorax appears intact 3 cm masslike infiltrate left mid lung. CT scan of the chest with IV contrast shows 3.3 x 4.4 x 3 cm spiculated mass lesion in the anterior inferior aspect of the left upper lobe compatible with neoplasm, anterior lateral aspect of this mass lesion has a pleural-based co mponent, there is right pleural effusion and subsegmental atelectasis right lung base, paratracheal lymph node, fatty infiltration of liver, mild central intrahepatic and adnexa hepatic duct dilatation noted of unknown etiology, probable left adrenal adenoma. She denied hemoptysis, cough, chest pain, weight loss. Because of the above findings neurology, pulmonology, and medical oncology has been consulted. MRI of the Brain resulted with a punctate 2mm enhancement in the right cerebellar hemisphere which is too small to characterize. Review of Systems A 14 point review of systems was assessed and completed and are all negative except for HPI Past Medical History Past Medical History: Cancer, Fibromyalgia, GERD/Reflux, Hyperlipidemia, Hypertension, Osteoarthritis (OA), Pulmonary Embolus (PE) Additional Past Medical History / Comment(s): Breast Ca 1998, hx PE, neck pain down right arm, down spine & both legs, some kind of clotting gene per pt., migraines, IBS, History of Any Multi-Drug Resistant Organisms: None Reported Past Surgical History: Breast Surgery, Cholecystectomy, Orthopedic Surgery, Tonsillectomy Additional Past Surgical History / Comment(s): left breast Lumpectomy; left Knee arthroscopy, kip cataracts removed Past Anesthesia/Blood Transfusion Reactions: No Reported Reaction Past Psychological History: Anxiety, Depression Smoking Status: Former smoker Past Alcohol Use History: Daily Additional Past Alcohol Use History / Comment(s): quit smoking 4 yrs ago, smoked for 30 yrs, < 1 PPD. No illicit drug use. Patient drinks of vodka drinking daily. She denies any seizure activity with withdrawal from alcohol. Past Drug Use History: None Reported - Past Family History Brother(s) Family Medical History: Coronary Artery Disease (CAD) Additional Family Medical History / Comment(s): Patient has one brother with history of coronary artery disease. Patient is on every sisters. Patient has 2 children with no major medical problems. Mother Family Medical History: Cancer Additional Family Medical History / Comment(s): Mother is with history of pancreatic cancer and melanoma. Father Family Medical History: Cancer Additional Family Medical History / Comment(s): Father is with history of bladder cancer. Medications and Allergies Home Medications Medication Instructions Recorded Confirmed Type Atorvastatin [Lipitor] 10 mg PO HS 05/09/15 05/24/19 History Omeprazole 20 mg PO HS 05/10/15 05/24/19 History B12/Levomefolate Calcium/B-6 1 tab PO HS 03/24/19 05/24/19 History [Foltx Tablet] DULoxetine HCL [Cymbalta] 60 mg PO HS 03/24/19 05/24/19 History Magnesium Oxide [Mag-Ox] 400 mg PO TID 03/24/19 05/24/19 History Metoprolol Tartrate [Lopressor] 25 mg PO BID 03/24/19 05/24/19 History Rivaroxaban [Xarelto] 15 mg PO HS 03/24/19 05/24/19 History Diphenox-Atrop 2.5-0.025 mg 1 tab PO QID PRN 03/31/19 05/24/19 History [Lomotil] traZODone HCL [Desyrel] 50 mg PO HS PRN 03/31/19 05/24/19 History Cholecalciferol [Vitamin D3 (25 5,000 unit PO HS 05/24/19 05/24/19 History Mcg = 1000 Iu)] HYDROcodone/APAP 7.5-325MG [[place] 1 tab PO BID 05/24/19 05/24/19 History 7.5-325] Allergies Allergy/AdvReac Type Severity Reaction Status Date / Time No Known Allergies Allergy Verified 05/24/19 20:03 Physical Exam Vitals: Vital Signs Temp Pulse Resp BP Pulse Ox 05/26/19 11:37 98.1 F 87 16 124/66 94 L 05/26/19 07:50 15 05/26/19 05:00 97.8 F 87 16 115/75 96 05/25/19 21:08 98.8 F 12 107/56 05/25/19 17:00 94 L Intake and Output 05/25/19 05/26/19 05/26/19 22:59 06:59 14:59 Intake Total 200 400 Balance 200 400 Intake: Intake, IV Titration 200 400 Amount Sodium Chloride 0.9% 1, 150 000 ml @ 50 mls/hr IV . Q20H [facility] Rx#:[id number] cefTRIAXone 1 gm In 50 400 Sodium Chloride 0.9% 50 ml @ 100 mls/hr IVPB Q24HR [facility] Rx#:[id number] Other: Voiding Method Toilet Bedside Commode Bedside Commode Diaper Diaper Diaper General: Alert and Oriented x3, No Acute Distress Head: Normocytic, Atraumatic Neck: Supple Mouth: No Lesions, No Thrush Eyes: Non-sclerotic No Palpable cervical, supraclavicular, axillary adenopathy Heart: Regular Rate, Regular Rhythm Lungs: Clear to Ausculations, No Wheeze, No Rhonchi, Diminishe bilateral lower lobes, No increased respiratory effort noted Abdomen: Soft, Non-Distended, Non-Tended, BSx4 Extremities: No Edema, Equal Strength Neurological: No Focal Defects: No sensory or motor deficits noted Psych: Calm and cooperative Results CBC & Chem 7: 05/26/19 06:55 05/26/19 06:55 Labs: Abnormal Lab Results - Last 24 Hours (Table) 05/26/19 05/26/19 05/26/19 Range/Units 06:55 06:55 06:55 RBC 3.70 L (3.80-5.40) m/uL Potassium 3.3 L (3.5-5.1) mmol/L AST 37 H (14-36) U/L Creatine Kinase 389 H (30-135) U/L Total Protein 5.1 L (6.3-8.2) g/dL Total Protein (PEP) 4.7 L (6.2-8.2) g/dL Albumin 2.8 L (3.5-5.0) g/dL Vitamin B12 1923.0 H (200.0-944.0) pg/mL Microbiology - Last 24 Hours (Table) 05/24/19 22:45 Urine Culture - Preliminary Urine,Catheterized CT scan - chest: report reviewed CT Scan - head: report reviewed MRI - head: report reviewed Assessment and Plan Plan: Assessment and Recommendations: New Lung Mass: - 3.3x4.4x3cm spiculated mass lesion in the anterior and inferior aspects of the left upper lobe concerning for neoplasm - Tissue biopsy will be needed to determine cell source and confirmation of malignant etiology - 2.5x2.9cm Pretrachial lymph node and 3.7x4cm aorticopulmonary lymph node noted Persistent and progressive weakness, unilateral: - RUE and LLE - Follows outpatient with [facility]sp[facility] services - MRIs reviewed - Neurology has been asked to further evaluate - MRI of the brain was reviewed and no apparent concern for malignancy at this time. Other differential of concern would be a paraneoplastic neurological syndrome. If all other differentials ruled out than concideration of onconeural antibodies for Hu (anti-hu), CRMPs, Amphiphysin, Yo, Ri, or Ma2. - Will discuss further with neurology if this is consideration after ful neurological review Plan: - Tissue biopsy, defer to pulmonology - Further staging can be completed withoutpatient PET after biopsy. - Discussed findings and plan for further work-up with patient - COntinue suportive care Lacie Salas, AOCNP
--- NOTE | 2019-05-26 13:49 | P.PN ---
Subjective Progress Note Date: 05/26/19 Principal diagnosis: Muscle weakness Cervical and lumbar radiculopathies MRI Brain, C/T spine. PT/OT. in the process of setting up EMG appointment with Dr. Pardo. No other neuro c/o. Objective - Vital Signs Vital signs: Vital Signs Temp 98.1 F 05/26/19 11:37 Pulse 87 05/26/19 11:37 Resp 16 05/26/19 11:37 BP 124/66 05/26/19 11:37 Pulse Ox 94 L 05/26/19 11:37 Intake & Output 05/25/19 05/26/19 05/26/19 18:59 06:59 18:59 Intake Total 400 600 Balance 400 600 Intake: Intake, IV Titration 400 600 Amount Sodium Chloride 0.9% 1, 400 150 000 ml @ 50 mls/hr IV . Q20H [facility] Rx#:[id number] cefTRIAXone 1 gm In 450 Sodium Chloride 0.9% 50 ml @ 100 mls/hr IVPB Q24HR [facility] Rx#:[id number] Other: Voiding Method Toilet Bedside Commode Bedside Commode Diaper Diaper Diaper - Exam Gen NAD Pleasant and cooperative MS A+Ox4 Normal fluency Able to follow all commands CN II-XII grossly intact no nystagmus or ptosis Motor Normal bulk/tone No pronator drift Cannot lift legs off bed No tremors Strength 4+/5 in BUE 1/5 in proximal BLE 4-/5 in distal BLE including EHL Sens Intact to LT x4 No neglect +SLR bilaterally Coord Not tested DTRs 2+/4 in bilateral biceps, triceps and brachioradialis 0/4 in bilateral patella and achilles Gait Deferred - Labs CBC & Chem 7: 05/26/19 06:55 05/26/19 06:55 Labs: Abnormal Lab Results - Last 24 Hours (Table) 05/26/19 05/26/19 05/26/19 Range/Units 06:55 06:55 06:55 RBC 3.70 L (3.80-5.40) m/uL Potassium 3.3 L (3.5-5.1) mmol/L AST 37 H (14-36) U/L Creatine Kinase 389 H (30-135) U/L Total Protein 5.1 L (6.3-8.2) g/dL Total Protein (PEP) 4.7 L (6.2-8.2) g/dL Albumin 2.8 L (3.5-5.0) g/dL Vitamin B12 1923.0 H (200.0-944.0) pg/mL Microbiology - Last 24 Hours (Table) 05/24/19 22:45 Urine Culture - Preliminary Urine,Catheterized - Imaging and Cardiology MRI - head: report reviewed, image reviewed (Tiny 2mm enhancement in the right cerebellar hemisphere. ?enhancement of right CNVII/VIII complex. No obvious metastasis, CVA or other mass lesions.) MRI cervical spine w wo yusra 05/26/19. Small central disc protrusion versus herniation at C7 to T1 without spinal canal stenosis or neuroforaminal stenosis. Left paracentral disc herniation at C3 to C4 with degenerative change causing mild to moderate left neuroforaminal stenosis and mild spinal canal stenosis. Degenerative disc disease creating mild spinal canal stenosis at C4-C5 and C5 to C6 but without cord compression. Variable degrees of neural foraminal stenosis at these levels. Cord signal appears normal without evidence of metastasis or other intramedullary changes. MRI thoracic spine w wo yusra 05/26/19. Multilevel severe degenerative disc disease with multilevel disc small central herniation at T6 to T7 that abuts the anterior margin of the spinal cord but without lisandro cord compression. There are no intramedullary signal changes. No evidence of metastasis. Assessment and Plan Assessment: Known cervical and lumbar spondylosis with cervical and lumbar radicular symptoms. Her lower extremities especially proximally are noticeably weaker than the rest of her other muscle groups. This may also be confounded by a myopathy, possibly steroid induced given her recent h/o intermittent steroid use. There is no obvious evidence of [employer] metastasis or cord compression. Plan: -MRI brain, cervical and thoracic spine w wo yusra results d/w patient and family in detail -Will need repeat MRI Brain w wo yusra in 2-3 months to make sure no change in the punctate 2mm enhancement in the right cerebellar hemisphere. This can be arranged by her outpatient neurologist -Will need outpatient EMG/NCS to r/o motor radiculopathies of her upper and lower extremities as well as to screen for myopathy, which will be the next step in her neurological work-up -CK still elevated but trending down -PN labs sent and pending: B12, E, SPEP, LD, LDH. These can be followed up by her outpatient neurologist -PT/OT -DVT prophylaxis -d/w patient and in detail. All questions answered -No further inpatient neuro recs at this time. Will revisit patient prn. Please call with new ?. Thank you again for this consultation. Time with Patient: Less than 30 (Time spent in direct patient care, greater than 50% of which was spent in agaw-ag-kfmy counseling and coordination of care: 25 minutes)
--- NOTE | 2019-05-26 15:51 | P.CONS ---
History of Present Illness - Chief Complaint Walking difficulty - History of Present Illness I had the opportunity to see patient for inpatient rehab consultation with regard to walking difficulty. She was admitted to [facility] May 24 with weakness and falls. Reports functional deficits for the last 5 months for trace has been requiring assistance. Seen by Dr. Kim for neurology who notes cervical and lumbar radiculopathies. Chest x-ray demonstrates masslike density. Head CT with mild atrophy. Pelvic x-ray negative. Chest CT with left upper lobe mass. Brain MRI with right cerebellar punctate lesion.MRI C-spine wo yusra 03/12/19. Small central disc herniation at C7 to T1 without spinal cord stenosis or neural foraminal stenosis. Left paracentral disc herniation at C3 to C4 with degenerative change creating mild to moderate left neuroforaminal stenosis and mild spinal canal stenosis. Degenerative disc disease creating mild spinal canal stenosis at C4 to C5 and C5 to C6 as well as variable degrees of neuroforaminal stenosis. X-rays L-spine 02/19/19. Severe degenerative disc space narrowing with endplate sclerosis and spondylosis. Severe facet joint arthropathy. No acute fracture. PT reports moderate assistance for functional mobility. Unable take steps and recommending subacute rehab due to low endurance. Previous functional history as elicited from patient: 73-year-old right-handed white female who is lives in a first-floor of a 2 floor home, alone. Retired. Prior to 5 months ago was independent. No receive some assistance for cooking, laundry, bathing. Uses [address] for gait[address] Dr. Burton is regular doctor. Denies tobacco and perhaps a daily drink. Family history both parents with cancer. Review of Systems Review of systems: ENT: Denies sneezes or discharge. Eyes: Denies discharge or photophobia. Cardiac: Denies chest pain or palpitation. Pulmonary: Denies cough or shortness of breath. Breast: Denies discharge or lumps. Gastrointestinal: Denies nausea, emesis, constipation, diarrhea. Genitourinary: Denies discharge or frequency. Musculoskeletal: Denies muscle or bone aches. Neurologic: General weakness. Endocrine: Denies shakes or sweats. Oncology: Denies cancers. Dermatologic: Denies rash, itching, pruritus. ALLERGY/immunology: Denies sneezes, rashes. Past Medical History Past Medical History: Cancer, Fibromyalgia, GERD/Reflux, Hyperlipidemia, Hypertension, Osteoarthritis (OA), Pulmonary Embolus (PE) Additional Past Medical History / Comment(s): Breast Ca 1998, hx PE, neck pain down right arm, down spine & both legs, some kind of clotting gene per pt., migraines, IBS, History of Any Multi-Drug Resistant Organisms: None Reported Past Surgical History: Breast Surgery, Cholecystectomy, Orthopedic Surgery, Tonsillectomy Additional Past Surgical History / Comment(s): left breast Lumpectomy; left Knee arthroscopy, kip cataracts removed Past Anesthesia/Blood Transfusion Reactions: No Reported Reaction Past Psychological History: Anxiety, Depression Smoking Status: Former smoker Past Alcohol Use History: Daily Additional Past Alcohol Use History / Comment(s): quit smoking 4 yrs ago, smoked for 30 yrs, < 1 PPD. No illicit drug use. Patient drinks of vodka drinking daily. She denies any seizure activity with withdrawal from alcohol. Past Drug Use History: None Reported - Past Family History Brother(s) Family Medical History: Coronary Artery Disease (CAD) Additional Family Medical History / Comment(s): Patient has one brother with history of coronary artery disease. Patient is on every sisters. Patient has 2 children with no major medical problems. Mother Family Medical History: Cancer Additional Family Medical History / Comment(s): Mother is with history of pancreatic cancer and melanoma. Father Family Medical History: Cancer Additional Family Medical History / Comment(s): Father is with history of bladder cancer. Medications and Allergies Home Medications Medication Instructions Recorded Confirmed Type Atorvastatin [Lipitor] 10 mg PO HS 05/09/15 05/24/19 History Omeprazole 20 mg PO HS 05/10/15 05/24/19 History B12/Levomefolate Calcium/B-6 1 tab PO HS 03/24/19 05/24/19 History [Foltx Tablet] DULoxetine HCL [Cymbalta] 60 mg PO HS 03/24/19 05/24/19 History Magnesium Oxide [Mag-Ox] 400 mg PO TID 03/24/19 05/24/19 History Metoprolol Tartrate [Lopressor] 25 mg PO BID 03/24/19 05/24/19 History Rivaroxaban [Xarelto] 15 mg PO HS 03/24/19 05/24/19 History Diphenox-Atrop 2.5-0.025 mg 1 tab PO QID PRN 03/31/19 05/24/19 History [Lomotil] traZODone HCL [Desyrel] 50 mg PO HS PRN 03/31/19 05/24/19 History Cholecalciferol [Vitamin D3 (25 5,000 unit PO HS 05/24/19 05/24/19 History Mcg = 1000 Iu)] HYDROcodone/APAP 7.5-325MG [[place] 1 tab PO BID 05/24/19 05/24/19 History 7.5-325] Allergies Allergy/AdvReac Type Severity Reaction Status Date / Time No Known Allergies Allergy Verified 05/24/19 20:03 Physical Exam Vitals: Vital Signs Temp Pulse Resp BP Pulse Ox 05/26/19 11:37 98.1 F 87 16 124/66 94 L 05/26/19 07:50 15 05/26/19 05:00 97.8 F 87 16 115/75 96 05/25/19 21:08 98.8 F 12 107/56 05/25/19 17:00 94 L Intake and Output 05/26/19 05/26/19 05/26/19 06:59 14:59 22:59 Intake Total 400 1750 Balance 400 1750 Intake: Intake, IV Titration 400 550 Amount Sodium Chloride 0.9% 1, 450 000 ml @ 50 mls/hr IV . Q20H [facility] Rx#:[id number] cefTRIAXone 1 gm In 400 100 Sodium Chloride 0.9% 50 ml @ 100 mls/hr IVPB Q24HR [facility] Rx#:[id number] Oral 1200 Other: Voiding Method Bedside Commode Bedside Commode Diaper Diaper # Voids 4 Skin: Good color, texture, turgor. General: Medium build and comfortable appearance. Head: Normocephalic, atraumatic. Eyes: Symmetric. Pupils equal round. Ears: Symmetric. Hearing within normal limits. Mouth: Clear. Neck: Supple. Carotid without bruit. Cardiac: Regular rate and rhythm. Lungs: Clear anteriorly and posteriorly. Abdomen: Soft active nontender. Extremities: Normal tone. Neurological: Mental status: Alert, cooperative, pleasant. Cranial nerves: Symmetric facial tone and trapezius. Motor: Normal strength and isolation arms and legs are poor. Sensation: Intact throughout. DTRs: Symmetric and equal throughout. Mobility: Requires physical assistance for bed mobility. Results CBC & Chem 7: 08/28/19 06:55 05/26/19 06:55 Labs: Abnormal Lab Results - Last 24 Hours (Table) 05/26/19 05/26/19 05/26/19 Range/Units 06:55 06:55 06:55 RBC 3.70 L (3.80-5.40) m/uL Potassium 3.3 L (3.5-5.1) mmol/L AST 37 H (14-36) U/L Creatine Kinase 389 H (30-135) U/L Total Protein 5.1 L (6.3-8.2) g/dL Total Protein (PEP) 4.7 L (6.2-8.2) g/dL Albumin 2.8 L (3.5-5.0) g/dL Vitamin B12 1923.0 H (200.0-944.0) pg/mL Assessment and Plan (1) Frequent falls Current Visit: Yes Status: Acute Code(s): R29.6 - REPEATED FALLS SNOMED Code(s): 847496445 (2) Mass of left lung Current Visit: Yes Status: Acute Code(s): R91.8 - OTHER NONSPECIFIC ABNORMAL FINDING OF LUNG FIELD SNOMED Code(s): 607734307 Plan: Impression: 1. Medical debility. 2. Pulmonary mass and left upper lobe. 3. Frequent falls and generalized weakness. 4. Hypertension. 5. Osteoarthritis. 6. Bilateral cervical and lumbar radiculopathies Constant plan: At this time PT and going and OT prescribed. Rehab prognosis currently guarded. Currently would require 24/7 physical assistance and care.
--- NOTE | 2019-05-26 16:07 | P.PN ---
Subjective Progress Note Date: 05/26/19 This is a 73-year-old female patient of Dr. Burton with past medical history of multilevel disc herniation C3-C4, C4-5 disc bulging and facet arthropathy C5 6 disc bulging and facet joint hypertrophy, C6 7 disc herniation multilevel canal stenosis. She has been under the care of pain management and underwent cervical epidural steroid injection C7-T1 on April [address] Vaz. Patient gives history that about 4 1/2 months ago she started having pain in her neck and then it gradually went into her thoracic area adjacent to the right arm until the thumb. At that initial time, her legs did not cause any problem she did not have any low back pain. She subsequently developed all over muscle a ches. She was admitted from our facility 04/29/2019, MRIs lumbar spine MRI cervical spine done at that time and was seen by Dr. Conway. She was arm prescribed prednisone to go home on, and outpatient physical therapy, was seen by Dr. Conway post hospital follow-up, and has recommended a neurologist to evaluate her for ongoing weakness of the arm and the lower extremities. Patient complains of weakness right arm, and weakness of the left lower leg is now chronic. Imaging studies during her last admission 04/29/2019 includedCAT scan of the lumbar spine showed advanced degenerative disc disease throughout as well as hypertrophic facet arthropathy and Baastrup's disease. Variable mild spinal canal stenosis due to posterior disc bulges. Variable neural foraminal stenosis severe at the left L5-S1. Bile duct dilated 1.1 cm probably secondary to postcholecystectomy status post patient age. Tiny hiatal hernia and sigmoid diverticulosis. MRI cervical spine 03/12/2019 C2-C3 small broad-based disc bulge without spinal stenosis C3-C4 left paracentral disc herniation mild spinal canal stenosis left, C4-C5 disc bulge with mild spinal canal stenosis left right neural foraminal narrowing C5-C6 facet arthropathy, severe left neural foraminal narrowing and mild right neural foraminal narrowing mild spinal canal stenosis C6-C7 disc bulge mild bilateral neural foraminal narrowing without spinal stenosis, C7-T1 central disc herniation, without spinal canal stenosis nor neural foraminal [employer] History of breath breast cancer 20 years ago with lumpectomy and radiation, fibromyalgia, gastroesophageal reflux disease, hypertension, hyperlipidemia, generalized osteoarthritis, pulmonary embolus 4 years ago on Xarelto, migraine headaches, irritable bowel syndrome, intermittent tobacco smoking, after quitting tobacco several years ago and daily alcohol intake. In the emergency room with her presentation of theright upper extremity left ower extremity weakness, patient has generalized myalgia and has difficulty in ambulating. Patient has fallen, and had fell on her buttocks, imaging studies ER, CAT scan of the brain mild atrophy no acute intracranial abnormality, no mass effect no midline shift. However chest x-ray shows something significant, masslike left midlung density is a change, new mediastinal adenopathy, density in the right paratracheal region could be mediastinal lymphadenopathy, no pleural effusion,bony thorax appears intact 3 cm masslike infiltrate left mid lung. CAT scan of the chest with IV contrast shows 3.3 x 4.4 x 3 cm spiculated mass lesion in the anterior inferior aspect of the left upper lobe compatible with neoplasm, anterior lateral aspect of this mass lesion has a pleural-based component, there is right pleural effusion and subsegmental atelectasis right lung base, paratracheal lymph node, fatty infiltration of liver, mild central intrahepatic and adnexa hepatic duct dilatation noted of unknown etiology, probable left adrenal adenoma. After the state patient does not have any left thoracic pain, no hemoptysis, no cough, no pleurisy, no weight loss, appetite is marginally okay,. Urinalysis shows gravity of 1.038, nitrite positive, urine WBC 182, urine RBC 111, lactic acid 2.6 elevated, liver function test is normal except AST 53 slightly elevated, troponin 0.012, CK 7.33 patient consult would be made with Dr. Newell, Dr. huizar and, IV antibiotic for presumed urinary tract infection, Dr. Kim for neurology, for upper and lower extremity weakness, MRI of the brain to be done. EMG would need to be process at as an outpatient 05/26: Patient has been seen by Dr. Hebert for known cervical and lumbar spondylosis with cervical and lumbar radicular symptoms. Lower extremities are especially weak proximally and may be confounded by myopathy possibly steroid induced given her recent history of intermittent steroid use. He recommends scanning central neural access to rule out FIELD SCOUT metastasis. MRI of the brain reveals punctate 2 mm enhancement in the right cerebral hemisphere too small to characterize. Early metastasis is in the differential. Degenerative nonspecific white matter changes most typical remote microvascular ischemia. Faint enhancement of the right seventh/eighth cranial nerve complex. Tiny acoustic neuroma in the differential. MRI of the cervical spine reveals small central disc protrusion or small herniation at C7-T1 without spinal canal stenosis nor neural foraminal narrowing. Left paracentral disc herniation at C3-C4 with degenerative change creating mild to moderate left neural foraminal narrowing and mild spinal canal stenosis. Degenerative disc disease at C4-C5 C5-C6 with variable degrees of neural foraminal narrowing. No destructive changes seen. Marrow signal within osseous structures are stable. MRI of the thoracic spine reveals multilevel severe degenerative disc disease with multilevel disc small central herniations. Disc herniation at T6/T7 abuts with anterior margin of the spinal cord. Marrow signal is diffusely heterogeneous without evidence of discrete lesion or diagnostic evidence of metastasis, destructive lesion. Left upper lobe lung mass with mediastinal adenopathy suspicious for malignancy. Plan is for outpatient EMG to be done with Dr. Pardo. Lab work pending includes LDH ISO, protein electrophoresis, vitamin B12 is 1923, vitamin E. LD screen negative. Patient has also been seen by pulmonary medicine and plan is for outpatient PET scan and follow-up with Dr. Gallardo for results. Patient does complain of a cough. She states her nausea is controlled. Patient is continued on ceftriaxone. Patient has been afebrile, heart rate 87, blood pressure 115/75, pulse ox 96% on 2 L nasal cannula. White count is normalized to 6.7. Potassium 3.3 and will be replaced. Creatinine improved to 0.98. Liver function tests are improved with total bilirubin 0.6, AST 37, ALT 33, alkaline phosphatase 76, CK is improved at 389. TSH came back at 1.4. Objective - Vital Signs Vital signs: Vital Signs Temp 97.8 F 05/26/19 05:00 Pulse 87 05/26/19 05:00 Resp 16 05/26/19 05:00 BP 115/75 05/26/19 05:00 Pulse Ox 96 05/26/19 05:00 Intake & Output 05/25/19 05/26/19 05/26/19 18:59 06:59 18:59 Intake Total 400 600 Balance 400 600 Intake: Intake, IV Titration 400 600 Amount Sodium Chloride 0.9% 1, 400 150 000 ml @ 50 mls/hr IV . Q20H [facility] Rx#:[id number] cefTRIAXone 1 gm In 450 Sodium Chloride 0.9% 50 ml @ 100 mls/hr IVPB Q24HR [facility] Rx#:[id number] Other: Voiding Method Toilet Bedside Commode Diaper Diaper - Exam Review of Systems Constitutional: Denies anorexia, Denies chills, Denies chronic headaches, Denies chronic pain, Denies daytime sleepiness, Denies fatigue, Denies fever, Denies lethargy, Denies malaise, Denies night sweats, Denies poor appetite, Denies sweats, Denies weakness, Denies weight gain, Denies weight loss Ears, nose, mouth and throat: Reports ant. neck pain (Right side) Cardiovascular: Reports as per HPI, Denies chest pain, Denies claudication, Denies decreased exercise tolerance, Denies dyspnea on exertion, Denies edema, Denies high blood pressure, Denies irregular heart beat, Denies leg edema, Denies lightheadedness, Denies orthopnea, Denies palpitations, Denies paroxysmal nocturnal dyspnea, Denies phlebitis, Denies rapid heart beat, Denies shortness of breath, Denies syncope Respiratory: Denies congestion, Denies cough, Denies cough with sputum, Denies dyspnea, Denies excessive sputum, Denies hemoptysis, Denies home oxygen, Denies pain, Denies pain on inspiration, Denies pleurisy, Denies respiratory infections, Denies sleep apnea, Denies snoring, Denies wheezing Gastrointestinal: Reports as per HPI, Denies abdominal pain, Denies belching, Denies bloating, Denies BRBPR, Denies change in bowel habits, Denies coffee ground emesis, Denies constipation, Denies diarrhea, Denies dyspepsia, Denies early satiety, Denies excessive gas, Denies heartburn, Denies hematemesis, Denies hematochezia, Denies indigestion, Denies jaundice, Denies lactose intolerance, Denies loss of appetite, Denies melena, Denies nausea, Denies vomiting Genitourinary: Denies abnormal vaginal bleeding, Denies decreased libido, Denies difficulty conceiving, Denies difficulty voiding, Denies dysmenorrhea, Denies dyspareunia, Denies dysuria, Denies flank pain, Denies genital sores, Denies hematuria, Denies hot flashes, Denies incomplete emptying, Denies kidney stones, Denies menorrhagia, Denies mixed incontinence, Denies nocturia, Denies pelvic pain, Denies post void dribbling, Denies , Denies prolapse symptoms, Denies stress incontinence, Denies urge incontinence, Denies urgency, Denies urinary frequency, Denies vaginal discharge, Denies vaginal dryness, Denies vaginal itching, Denies vaginal odor Musculoskeletal: Denies myalgia Integumentary: Denies rash Neurological: Denies aphasia, Denies ataxia, Denies balance difficulties, Denies burning pain, Denies change in mentation, Denies change in smell/taste, Denies change in speech, Denies confusion, Denies convulsions, Denies double vision, Denies gait dysfunction, Denies head injury, Denies headaches, Denies hearing difficulties, Denies lack of coordination, Denies loss of vision, Denies memory loss, Denies migraines, Denies motor disturbance, Denies numbness, Denies paralysis, Denies paresthesias, Denies seizures, Denies sensory deficit, Denies spasticity, Denies syncope, Denies tic, Denies tingling, Denies transient paralysis, Denies tremors, Denies vertigo, Denies weakness, Denies visual changes Psychiatric: Denies anhedonia, Denies anxiety, Denies anxiety attacks, Denies change in appetite, Denies change in libido, Denies change in sleep habits, Denies confusion, Denies depression, Denies difficulty concentrating, Denies disorientation, Denies hallucinations, Denies hopelessness, Denies hypersomnia, Denies insomnia, Denies irritability, Denies memory loss, Denies mood swings, Denies paranoia, Denies sadness/tearfulness, Denies sleep disturbances, Denies suicidal ideation Endocrine: Denies cold intolerance, Denies deepening of the voice, Denies excessive sweating, Denies excessive thirst, Denies fatigue, Denies flushing, Denies heat intolerance, Denies high blood sugars, Denies increase in ring/shoe/hat size, Denies low blood sugars, Denies nocturia, Denies palpitations, Denies polydipsia, Denies polyphagia, Denies polyuria, Denies proptosis, Denies recent glucocorticoid use, Denies thyroid mass, Denies weight change Allergic/Immunologic: Denies allergic rhinitis, Denies anaphylaxis, Denies angioedema, Denies seasonal allergies, Denies urticaria, Denies wheezing Physical exam: - Constitutional General appearance: cooperative, no acute distress while resting in bed. Daughter is at bedside. - EENT Eyes: anicteric sclerae, EOMI, dentition normal, normal appearance ENT: NA/AT, normal oropharynx - Neck Neck: normal ROM - Respiratory Respiratory: bilateral: CTA, negative: diminished, dullness - Cardiovascular Rhythm: regular Heart sounds: normal: S1, S2 Abnormal Heart Sounds: no systolic murmur, no diastolic murmur, no rub, no S3 Gallop, no S4 Gallop, no click, no other - Gastrointestinal General gastrointestinal: normal bowel sounds, soft - Integumentary Integumentary: decreased turgor, normal - Neurologic Neurologic: CNII-XII intact - Musculoskeletal Musculoskeletal: generalized weakness (Right upper extremity 3 4/5, left lower extremity 4+ over 5) - Psychiatric Psychiatric: A&O x's 3, appropriate affect, intact judgment & insight - Labs CBC & Chem 7: 05/26/19 06:55 05/26/19 06:55 Labs: Abnormal Lab Results - Last 24 Hours (Table) 05/26/19 05/26/19 Range/Units 06:55 06:55 RBC 3.70 L (3.80-5.40) m/uL Potassium 3.3 L (3.5-5.1) mmol/L AST 37 H (14-36) U/L Creatine Kinase 389 H (30-135) U/L Total Protein 5.1 L (6.3-8.2) g/dL Albumin 2.8 L (3.5-5.0) g/dL Microbiology - Last 24 Hours (Table) 05/24/19 22:45 Urine Culture - Preliminary Urine,Catheterized Assessment and Plan Plan: 1. Acute urinary tract infection, patient is started on IV Rocephin, cultures are sent, IV hydration. Urine culture is pending. 2. Lung mass, spiculated left mid lung lobe, 3.3 x 4.4 cm new, patient was seen by Dr. Huizar, and Dr. Newell, patient would need to be biopsied for this lung mass, tobacco cessation was requested to be done permanently, Xarelto to be held to allow for lung biopsy. Interventional radiology for CT-guided biopsy. 3. Weakness upper extremity right side, weakness lower extremity left side, MRI of the brain to be done and MRI of the cervical spine and thoracic spine as above added by Dr. Hebert, patient would have an EMG to be done as an outpatient, was set up to see Dr. Pardo as an outpatient by Dr. Conway 4. Degenerative disc disease of lumbar spine and stenosis most severe at the left L5-S1. Multilevel disc herniation of the cervical spine status post cervical epidural steroid injection C7-T1 on April [address] Vaz, pain management. Continue Lyrica 25 mg twice daily. Patient has seen Dr. Conway and outpatient, no surgical intervention recommended, he requested a neurologist to see the patient, EMG of the upper extremity to be done, MRI of the brain to evaluate for brain metastases as well as noted degenerative disease of the brain 5. History of breast cancer 20 years ago status post lumpectomy and radiation, stable. 6. Hypertension. Continue lisinopril 10 mg at bedtime, Lopressor 25 mg twice daily. 7. Hyperlipidemia. Continue atorvastatin 10 mg at bedtime. 8. History of pulmonary embolus 4 years ago on Xarelto. Hold Xarelto 15. for lung biopsy 9. Fibromyalgia. Continue current pain management. 10. Migraine headaches, stable. 11. Irritable bowel syndrome. Continue Lomotil as needed. 12. Recurrent depression. Continue Cymbalta 60 mg at bedtime, trazodone 50 mg at bedtime. 13. Remote history of tobacco use and dependence. 14. Daily alcohol use. No history of seizure activity. Monitor for DTs. 15. DVT prophylaxis. Xarelto 16. GI prophylaxis and gastroesophageal reflux disease. Protonix. Discharge plan: home Impression and plan of care have been directed as dictated by the signing physician. Tia Harley nurse practitioner acting as scribe for signing physician.
[2019-05-26] MEDS: HYDROcodone/APAP 7.5-325MG 1 EACH TAB PO PRN (18:14)
[2019-05-26] MEDS: RIVAROXABAN 15 MG TAB PO SCH (18:15)
[2019-05-26] MEDS: CYANOCOBALAMIN-FA-PYRIDOXINE 1 EACH TAB PO SCH (22:05)
[2019-05-26] MEDS: CHOLECALCIFEROL 1,000 UNIT TAB PO SCH (22:05)
[2019-05-26] MEDS: PANTOPRAZOLE 40 MG TABLET PO SCH (22:06)
[2019-05-26] MEDS: DULoxetine HCL 60 MG CAPSULE.DR PO SCH (22:06)
[2019-05-26] MEDS: ATORVASTATIN 10 MG TAB PO SCH (22:06)
[2019-05-26] MEDS: traZODone HCL 50 MG TAB PO PRN (22:11)
[2019-05-27] MEDS: HYDROcodone/APAP 7.5-325MG 1 EACH TAB PO PRN ×2 (06:24→18:55)
[2019-05-27] MEDS: MAGNESIUM OXIDE 400 MG TAB PO SCH ×3 (08:34→22:04)
[2019-05-27] MEDS: METOPROLOL TARTRATE 25 MG TAB PO SCH ×2 (08:34→22:03)
[2019-05-27 10:14] LABS: Albumin 2.73 g/dL (3.80-4.90); Gamma Globulin 0.46 g/dL (0.70-1.50)
--- NOTE | 2019-05-27 14:58 | P.PN ---
Progress Note - Text Progress Note Date: 05/27/19 SPEP shows hypogammaglobulinemia and cannot exclude a free light chain paraprotein. In this case, will send serum immunofixation. B12 and LD unrevealing. Vitamin E still pending.
--- NOTE | 2019-05-27 15:08 | P.PN ---
Subjective Progress Note Date: 05/27/19 Principal diagnosis: New Lung Mass Plan was for IR to obtain CT guided Biopsy lung mass, although IR noted PET scan and Bronchoscopy approach. Objective - Vital Signs Vital signs: Vital Signs Temp 97.7 F 05/27/19 12:25 Pulse 79 05/27/19 12:25 Resp 18 05/27/19 12:25 BP 119/79 05/27/19 12:25 Pulse Ox 98 05/27/19 12:25 Intake & Output 05/26/19 05/27/19 05/27/19 18:59 06:59 18:59 Intake Total 1750 3890 Output Total 500 Balance 1750 3390 Intake: Intake, IV Titration 550 650 Amount Sodium Chloride 0.9% 1, 450 650 000 ml @ 50 mls/hr IV . Q20H [facility] Rx#:[id number] cefTRIAXone 1 gm In 100 Sodium Chloride 0.9% 50 ml @ 100 mls/hr IVPB Q24HR [facility] Rx#:[id number] Oral 1200 3240 Output: Urine 500 Other: Voiding Method Bedside Commode Bedside Commode Bedside Commode Diaper Diaper Diaper # Voids 4 2 - Exam General: Alert and Oriented x3, No Acute Distress Head: Normocytic, Atraumatic Neck: Supple Mouth: No Lesions, No Thrush Eyes: Non-sclerotic No Palpable cervical, supraclavicular, axillary adenopathy Heart: Regular Rate, Regular Rhythm Lungs: Clear to Ausculations, No Wheeze, No Rhonchi, Diminishe bilateral lower lobes, No increased respiratory effort noted Abdomen: Soft, Non-Distended, Non-Tended, BSx4 Extremities: No Edema, Equal Strength Neurological: No Focal Defects: No sensory or motor deficits noted Psych: Calm and cooperative - Labs CBC & Chem 7: 05/26/19 06:55 05/26/19 06:55 Labs: Abnormal Lab Results - Last 24 Hours (Table) 05/26/19 Range/Units 06:55 Albumin (PEP) 2.73 L (3.80-4.90) g/dL Beta Globulins 0.59 L (0.60-1.30) g/dL Gamma Globulins 0.46 L (0.70-1.50) g/dL Assessment and Plan Plan: Assessment and Recommendations: New Lung Mass: - 3.3x4.4x3cm spiculated mass lesion in the anterior and inferior aspects of the left upper lobe concerning for neoplasm - Tissue biopsy will be needed to determine cell source and confirmation of malignant etiology - 2.5x2.9cm Pretrachial lymph node and 3.7x4cm aorticopulmonary lymph node noted Persistent and progressive weakness, unilateral: - RUE and LLE - Follows outpatient with [facility] services - MRIs reviewed - Neurology has been asked to further evaluate - MRI of the brain was reviewed and no apparent concern for malignancy at this time. Other differential of concern would be a paraneoplastic neurological syndrome. If all other differentials ruled out than concideration of onconeural antibodies for Hu (anti-hu), CRMPs, Amphiphysin, Yo, Ri, or Ma2. - Will discuss further with neurology if this is consideration after ful neurological review Plan: - Tissue biopsy, defer to pulmonology - Further staging can be completed without patient PET before or after bx. - Discussed findings and plan for further work-up with patient - Continue supportive care - Patient to follow-up in office after biopsy SHERIN Gonzales
[2019-05-27] MEDS: MORPHINE SULFATE 4 MG/ML SYRINGE IV PRN ×2 (15:09→22:08)
--- NOTE | 2019-05-27 16:11 | P.PN ---
Subjective Progress Note Date: 05/27/19 This is a 73-year-old female patient of Dr. Burton with past medical history of multilevel disc herniation C3-C4, C4-5 disc bulging and facet arthropathy C5 6 disc bulging and facet joint hypertrophy, C6 7 disc herniation multilevel canal stenosis. She has been under the care of pain management and underwent cervical epidural steroid injection C7-T1 on April [address] Vaz. Patient gives history that about 4 1/2 months ago she started having pain in her neck and then it gradually went into her thoracic area adjacent to the right arm until the thumb. At that initial time, her legs did not cause any problem she did not have any low back pain. She subsequently developed all over muscle a ches. She was admitted from our facility 04/29/2019, MRIs lumbar spine MRI cervical spine done at that time and was seen by Dr. Conway. She was arm prescribed prednisone to go home on, and outpatient physical therapy, was seen by Dr. Conway post hospital follow-up, and has recommended a neurologist to evaluate her for ongoing weakness of the arm and the lower extremities. Patient complains of weakness right arm, and weakness of the left lower leg is now chronic. Imaging studies during her last admission 04/29/2019 includedCAT scan of the lumbar spine showed advanced degenerative disc disease throughout as well as hypertrophic facet arthropathy and Baastrup's disease. Variable mild spinal canal stenosis due to posterior disc bulges. Variable neural foraminal stenosis severe at the left L5-S1. Bile duct dilated 1.1 cm probably secondary to postcholecystectomy status post patient age. Tiny hiatal hernia and sigmoid diverticulosis. MRI cervical spine 03/12/2019 C2-C3 small broad-based disc bulge without spinal stenosis C3-C4 left paracentral disc herniation mild spinal canal stenosis left, C4-C5 disc bulge with mild spinal canal stenosis left right neural foraminal narrowing C5-C6 facet arthropathy, severe left neural foraminal narrowing and mild right neural foraminal narrowing mild spinal canal stenosis C6-C7 disc bulge mild bilateral neural foraminal narrowing without spinal stenosis, C7-T1 central disc herniation, without spinal canal stenosis nor neural foraminal [employer] History of breath breast cancer 20 years ago with lumpectomy and radiation, fibromyalgia, gastroesophageal reflux disease, hypertension, hyperlipidemia, generalized osteoarthritis, pulmonary embolus 4 years ago on Xarelto, migraine headaches, irritable bowel syndrome, intermittent tobacco smoking, after quitting tobacco several years ago and daily alcohol intake. In the emergency room with her presentation of theright upper extremity left ower extremity weakness, patient has generalized myalgia and has difficulty in ambulating. Patient has fallen, and had fell on her buttocks, imaging studies ER, CAT scan of the brain mild atrophy no acute intracranial abnormality, no mass effect no midline shift. However chest x-ray shows something significant, masslike left midlung density is a change, new mediastinal adenopathy, density in the right paratracheal region could be mediastinal lymphadenopathy, no pleural effusion,bony thorax appears intact 3 cm masslike infiltrate left mid lung. CAT scan of the chest with IV contrast shows 3.3 x 4.4 x 3 cm spiculated mass lesion in the anterior inferior aspect of the left upper lobe compatible with neoplasm, anterior lateral aspect of this mass lesion has a pleural-based component, there is right pleural effusion and subsegmental atelectasis right lung base, paratracheal lymph node, fatty infiltration of liver, mild central intrahepatic and adnexa hepatic duct dilatation noted of unknown etiology, probable left adrenal adenoma. After the state patient does not have any left thoracic pain, no hemoptysis, no cough, no pleurisy, no weight loss, appetite is marginally okay,. Urinalysis shows gravity of 1.038, nitrite positive, urine WBC 182, urine RBC 111, lactic acid 2.6 elevated, liver function test is normal except AST 53 slightly elevated, troponin 0.012, CK 7.33 patient consult would be made with Dr. Newell, Dr. huizar and, IV antibiotic for presumed urinary tract infection, Dr. Kim for neurology, for upper and lower extremity weakness, MRI of the brain to be done. EMG would need to be process at as an outpatient 05/26: Patient has been seen by Dr. Hebert for known cervical and lumbar spondylosis with cervical and lumbar radicular symptoms. Lower extremities are especially weak proximally and may be confounded by myopathy possibly steroid induced given her recent history of intermittent steroid use. He recommends scanning central neural access to rule out ST[employer] metastasis. MRI of the brain reveals punctate 2 mm enhancement in the right cerebral hemisphere too small to characterize. Early metastasis is in the differential. Degenerative nonspecific white matter changes most typical remote microvascular ischemia. Faint enhancement of the right seventh/eighth cranial nerve complex. Tiny acoustic neuroma in the differential. MRI of the cervical spine reveals small central disc protrusion or small herniation at C7-T1 without spinal canal stenosis nor neural foraminal narrowing. Left paracentral disc herniation at C3-C4 with degenerative change creating mild to moderate left neural foraminal narrowing and mild spinal canal stenosis. Degenerative disc disease at C4-C5 C5-C6 with variable degrees of neural foraminal narrowing. No destructive changes seen. Marrow signal within osseous structures are stable. MRI of the thoracic spine reveals multilevel severe degenerative disc disease with multilevel disc small central herniations. Disc herniation at T6/T7 abuts with anterior margin of the spinal cord. Marrow signal is diffusely heterogeneous without evidence of discrete lesion or diagnostic evidence of metastasis, destructive lesion. Left upper lobe lung mass with mediastinal adenopathy suspicious for malignancy. Plan is for outpatient EMG to be done with Dr. Pardo. Lab work pending includes LDH ISO, protein electrophoresis, vitamin B12 is 1923, vitamin E. LD screen negative. Patient has also been seen by pulmonary medicine and plan is for outpatient PET scan and follow-up with Dr. Gallardo for results. Patient does complain of a cough. She states her nausea is controlled. Patient is continued on ceftriaxone. Patient has been afebrile, heart rate 87, blood pressure 115/75, pulse ox 96% on 2 L nasal cannula. White count is normalized to 6.7. Potassium 3.3 and will be replaced. Creatinine improved to 0.98. Liver function tests are improved with total bilirubin 0.6, AST 37, ALT 33, alkaline phosphatase 76, CK is improved at 389. TSH came back at 1.4. 05/27: Patient has been afebrile, heart rate 80, blood pressure 109/74, pulse ox 93% on 1 L nasal cannula. Vitamin B12 1923. Protein electrophoresis interpretation: With hypogammaglobulinemia, although not seen in the study, a few light chain paraprotein cannot be excluded. Patient was evaluated by Dr. Silke callaway and patient has been accepted at [facility] inpatient rehab awaiting insurance authorization. Patient's will set up appointment with Dr. Pardo for EMG testing. A prescription for PET scanning has been provided. Nursing to follow up with guarding PET scan scheduling if this can be done while she is at inpatient rehab. Insurance is requesting a peer to peer evaluation. Objective - Vital Signs Vital signs: Vital Signs Temp 97.7 F 05/27/19 12:25 Pulse 79 05/27/19 12:25 Resp 18 05/27/19 12:25 BP 119/79 05/27/19 12:25 Pulse Ox 98 05/27/19 12:25 Intake & Output 05/26/19 05/27/19 05/27/19 18:59 06:59 18:59 Intake Total 1750 3890 Output Total 500 Balance 1750 3390 Intake: Intake, IV Titration 550 650 Amount Sodium Chloride 0.9% 1, 450 650 000 ml @ 50 mls/hr IV . Q20H [facility] Rx#:[id number] cefTRIAXone 1 gm In 100 Sodium Chloride 0.9% 50 ml @ 100 mls/hr IVPB Q24HR [facility] Rx#:[id number] Oral 1200 3240 Output: Urine 500 Other: Voiding Method Bedside Commode Bedside Commode Bedside Commode Diaper Diaper Diaper # Voids 4 2 - Exam Review of Systems Constitutional: Denies anorexia, Denies chills, Denies chronic headaches, Denies chronic pain, Denies daytime sleepiness, Denies fatigue, Denies fever, Denies lethargy, Denies malaise, Denies night sweats, Denies poor appetite, Denies sweats, Denies weakness, Denies weight gain, Denies weight loss Ears, nose, mouth and throat: Reports ant. neck pain (Right side) Cardiovascular: Denies chest pain, Denies claudication, Denies decreased exercise tolerance, Denies dyspnea on exertion, Denies edema, Denies high blood pressure, Denies irregular heart beat, Denies leg edema, Denies lightheadedness, Denies orthopnea, Denies palpitations, Denies paroxysmal nocturnal dyspnea, Denies phlebitis, Denies rapid heart beat, Denies shortness of breath, Denies syncope Respiratory: Denies congestion, Denies cough, Denies cough with sputum, Denies dyspnea, Denies excessive sputum, Denies hemoptysis, Denies home oxygen, Denies pain, Denies pain on inspiration, Denies pleurisy, Denies respiratory infections, Denies sleep apnea, Denies snoring, Denies wheezing Gastrointestinal: Denies abdominal pain, Denies belching, Denies bloating, Denies BRBPR, Denies change in bowel habits, Denies coffee ground emesis, Denies constipation, Denies diarrhea, Denies dyspepsia, Denies early satiety, Denies excessive gas, Denies heartburn, Denies hematemesis, Denies hematochezia, Denies indigestion, Denies jaundice, Denies lactose intolerance, Denies loss of appetite, Denies melena, Denies nausea, Denies vomiting Genitourinary: Denies abnormal vaginal bleeding, Denies decreased libido, Denies difficulty conceiving, Denies difficulty voiding, Denies dysmenorrhea, Denies dyspareunia, Denies dysuria, Denies flank pain, Denies genital sores, Denies hematuria, Denies hot flashes, Denies incomplete emptying, Denies kidney stones, Denies menorrhagia, Denies mixed incontinence, Denies nocturia, Denies pelvic pain, Denies post void dribbling, Denies , Denies prolapse symptoms, Denies stress incontinence, Denies urge incontinence, Denies urgency, Denies urinary frequency, Denies vaginal discharge, Denies vaginal dryness, Denies vaginal itching, Denies vaginal odor Musculoskeletal: Denies myalgia Integumentary: Denies rash Neurological: Denies aphasia, Denies ataxia, Denies balance difficulties, Denies burning pain, Denies change in mentation, Denies change in smell/taste, Denies change in speech, Denies confusion, Denies convulsions, Denies double vision, Denies gait dysfunction, Denies head injury, Denies headaches, Denies hearing difficulties, Denies lack of coordination, Denies loss of vision, Denies memory loss, Denies migraines, Denies motor disturbance, Denies numbness, Denies paralysis, Denies paresthesias, Denies seizures, Denies sensory deficit, Denies spasticity, Denies syncope, Denies tic, Denies tingling, Denies transient paralysis, Denies tremors, Denies vertigo, Denies weakness, Denies visual changes Psychiatric: Denies anhedonia, Denies anxiety, Denies anxiety attacks, Denies change in appetite, Denies change in libido, Denies change in sleep habits, Denies confusion, Denies depression, Denies difficulty concentrating, Denies disorientation, Denies hallucinations, Denies hopelessness, Denies hypersomnia, Denies insomnia, Denies irritability, Denies memory loss, Denies mood swings, Denies paranoia, Denies sadness/tearfulness, Denies sleep disturbances, Denies suicidal ideation Endocrine: Denies cold intolerance, Denies deepening of the voice, Denies excessive sweating, Denies excessive thirst, Denies fatigue, Denies flushing, Denies heat intolerance, Denies high blood sugars, Denies increase in ring/shoe/hat size, Denies low blood sugars, Denies nocturia, Denies palpitations, Denies polydipsia, Denies polyphagia, Denies polyuria, Denies proptosis, Denies recent glucocorticoid use, Denies thyroid mass, Denies weight change Allergic/Immunologic: Denies allergic rhinitis, Denies anaphylaxis, Denies angioedema, Denies seasonal allergies, Denies urticaria, Denies wheezing Physical exam: - Constitutional General appearance: cooperative, no acute distress while resting in bed. - EENT Eyes: anicteric sclerae, EOMI, dentition normal, normal appearance ENT: NA/AT, normal oropharynx - Neck Neck: normal ROM - Respiratory Respiratory: bilateral: CTA, negative: diminished, dullness - Cardiovascular Rhythm: regular Heart sounds: normal: S1, S2 Abnormal Heart Sounds: no systolic murmur, no diastolic murmur, no rub, no S3 Gallop, no S4 Gallop, no click, no other - Gastrointestinal General gastrointestinal: normal bowel sounds, soft - Integumentary Integumentary: decreased turgor, normal - Neurologic Neurologic: CNII-XII intact - Musculoskeletal Musculoskeletal: generalized weakness (Right upper extremity 3 4/5, left lower extremity 4+ over 5) - Psychiatric Psychiatric: A&O x's 3, appropriate affect, intact judgment & insight - Labs CBC & Chem 7: 05/26/19 06:55 05/26/19 06:55 Labs: Abnormal Lab Results - Last 24 Hours (Table) 05/26/19 Range/Units 06:55 Albumin (PEP) 2.73 L (3.80-4.90) g/dL Beta Globulins 0.59 L (0.60-1.30) g/dL Gamma Globulins 0.46 L (0.70-1.50) g/dL Assessment and Plan Plan: 1. Acute urinary tract infection, patient is started on IV Rocephin, cultures are sent, IV hydration. Urine culture is pending. 2. Lung mass, spiculated left mid lung lobe, 3.3 x 4.4 cm new, patient was seen by Dr. Huizar, and Dr. Newell, patient would need to be biopsied for this lung mass, tobacco cessation was requested to be done permanently, Xarelto to be held to allow for lung biopsy. Interventional radiology for CT-guided biopsy. 3. Weakness upper extremity right side, weakness lower extremity left side, MRI of the brain to be done and MRI of the cervical spine and thoracic spine as above added by Dr. Hebert, patient would have an EMG to be done as an outpatient, was set up to see Dr. Pardo as an outpatient by Dr. Conway 4. Degenerative disc disease of lumbar spine and stenosis most severe at the left L5-S1. Multilevel disc herniation of the cervical spine status post cervical epidural steroid injection C7-T1 on April [address] Vaz, pain management. Continue Lyrica 25 mg twice daily. Patient has seen Dr. Conway and outpatient, no surgical intervention recommended, he requested a neurologist to see the patient, EMG of the upper extremity to be done, MRI of the brain to evaluate for brain metastases as well as noted degenerative disease of the brain 5. History of breast cancer 20 years ago status post lumpectomy and radiation, stable. 6. Hypertension. Continue lisinopril 10 mg at bedtime, Lopressor 25 mg twice daily. 7. Hyperlipidemia. Continue atorvastatin 10 mg at bedtime. 8. History of pulmonary embolus 4 years ago on Xarelto. Hold Xarelto 15. for lung biopsy 9. Fibromyalgia. Continue current pain management. 10. Migraine headaches, stable. 11. Irritable bowel syndrome. Continue Lomotil as needed. 12. Recurrent depression. Continue Cymbalta 60 mg at bedtime, trazodone 50 mg at bedtime. 13. Remote history of tobacco use and dependence. 14. Daily alcohol use. No history of seizure activity. Monitor for DTs. 15. DVT prophylaxis. Xarelto 16. GI prophylaxis and gastroesophageal reflux disease. Protonix. Discharge plan: [facility] for inpatient rehab. Awaiting insurance authorization. Peer to peer eval to be done. Impression and plan of care have been directed as dictated by the signing physician. Tia Harley nurse practitioner acting as scribe for signing physician.
[2019-05-27] MEDS: RIVAROXABAN 15 MG TAB PO SCH (17:15)
[2019-05-27] MEDS: CHOLECALCIFEROL 1,000 UNIT TAB PO SCH (22:03)
[2019-05-27] MEDS: DULoxetine HCL 60 MG CAPSULE.DR PO SCH (22:03)
[2019-05-27] MEDS: CYANOCOBALAMIN-FA-PYRIDOXINE 1 EACH TAB PO SCH (22:04)
[2019-05-27] MEDS: ATORVASTATIN 10 MG TAB PO SCH (22:04)
[2019-05-27] MEDS: PANTOPRAZOLE 40 MG TABLET PO SCH (22:04)
[2019-05-28] MEDS: MORPHINE SULFATE 4 MG/ML SYRINGE IV PRN ×3 (04:09→20:40)
[2019-05-28] MEDS: HYDROcodone/APAP 7.5-325MG 1 EACH TAB PO PRN ×3 (06:17→19:13)
[2019-05-28 07:56] LABS: Vitamin E (Alpha Tocopherol) 1487 ug/dL (500-1800)
[2019-05-28] MEDS: MAGNESIUM OXIDE 400 MG TAB PO SCH ×3 (09:01→20:43)
[2019-05-28] MEDS: METOPROLOL TARTRATE 25 MG TAB PO SCH ×2 (09:01→20:43)
--- NOTE | 2019-05-28 14:01 | P.PN ---
Subjective Progress Note Date: 05/28/19 This is a 73-year-old female patient of Dr. Burton with past medical history of multilevel disc herniation C3-C4, C4-5 disc bulging and facet arthropathy C5 6 disc bulging and facet joint hypertrophy, C6 7 disc herniation multilevel canal stenosis. She has been under the care of pain management and underwent cervical epidural steroid injection C7-T1 on April [address] Vaz. Patient gives history that about 4 1/2 months ago she started having pain in her neck and then it gradually went into her thoracic area adjacent to the right arm until the thumb. At that initial time, her legs did not cause any problem she did not have any low back pain. She subsequently developed all over muscle a ches. She was admitted from our facility 04/29/2019, MRIs lumbar spine MRI cervical spine done at that time and was seen by Dr. Conway. She was arm prescribed prednisone to go home on, and outpatient physical therapy, was seen by Dr. Conway post hospital follow-up, and has recommended a neurologist to evaluate her for ongoing weakness of the arm and the lower extremities. Patient complains of weakness right arm, and weakness of the left lower leg is now chronic. Imaging studies during her last admission 04/29/2019 includedCAT scan of the lumbar spine showed advanced degenerative disc disease throughout as well as hypertrophic facet arthropathy and Baastrup's disease. Variable mild spinal canal stenosis due to posterior disc bulges. Variable neural foraminal stenosis severe at the left L5-S1. Bile duct dilated 1.1 cm probably secondary to postcholecystectomy status post patient age. Tiny hiatal hernia and sigmoid diverticulosis. MRI cervical spine 03/12/2019 C2-C3 small broad-based disc bulge without spinal stenosis C3-C4 left paracentral disc herniation mild spinal canal stenosis left, C4-C5 disc bulge with mild spinal canal stenosis left right neural foraminal narrowing C5-C6 facet arthropathy, severe left neural foraminal narrowing and mild right neural foraminal narrowing mild spinal canal stenosis C6-C7 disc bulge mild bilateral neural foraminal narrowing without spinal stenosis, C7-T1 central disc herniation, without spinal canal stenosis nor neural foraminal [employer] row[employer] History of breath breast cancer 20 years ago with lumpectomy and radiation, fibromyalgia, gastroesophageal reflux disease, hypertension, hyperlipidemia, generalized osteoarthritis, pulmonary embolus 4 years ago on Xarelto, migraine headaches, irritable bowel syndrome, intermittent tobacco smoking, after quitting tobacco several years ago and daily alcohol intake. In the emergency room with her presentation of theright upper extremity left ower extremity weakness, patient has generalized myalgia and has difficulty in ambulating. Patient has fallen, and had fell on her buttocks, imaging studies ER, CAT scan of the brain mild atrophy no acute intracranial abnormality, no mass effect no midline shift. However chest x-ray shows something significant, masslike left midlung density is a change, new mediastinal adenopathy, density in the right paratracheal region could be mediastinal lymphadenopathy, no pleural effusion,bony thorax appears intact 3 cm masslike infiltrate left mid lung. CAT scan of the chest with IV contrast shows 3.3 x 4.4 x 3 cm spiculated mass lesion in the anterior inferior aspect of the left upper lobe compatible with neoplasm, anterior lateral aspect of this mass lesion has a pleural-based component, there is right pleural effusion and subsegmental atelectasis right lung base, paratracheal lymph node, fatty infiltration of liver, mild central intrahepatic and adnexa hepatic duct dilatation noted of unknown etiology, probable left adrenal adenoma. After the state patient does not have any left thoracic pain, no hemoptysis, no cough, no pleurisy, no weight loss, appetite is marginally okay,. Urinalysis shows gravity of 1.038, nitrite positive, urine WBC 182, urine RBC 111, lactic acid 2.6 elevated, liver function test is normal except AST 53 slightly elevated, troponin 0.012, CK 7.33 patient consult would be made with Dr. Newell, Dr. huizar and, IV antibiotic for presumed urinary tract infection, Dr. Kim for neurology, for upper and lower extremity weakness, MRI of the brain to be done. EMG would need to be process at as an outpatient 05/26: Patient has been seen by Dr. Hebert for known cervical and lumbar spondylosis with cervical and lumbar radicular symptoms. Lower extremities are especially weak proximally and may be confounded by myopathy possibly steroid induced given her recent history of intermittent steroid use. He recommends scanning central neural access to rule out EDUCATION DIRECTOR metastasis. MRI of the brain reveals punctate 2 mm enhancement in the right cerebral hemisphere too small to characterize. Early metastasis is in the differential. Degenerative nonspecific white matter changes most typical remote microvascular ischemia. Faint enhancement of the right seventh/eighth cranial nerve complex. Tiny acoustic neuroma in the differential. MRI of the cervical spine reveals small central disc protrusion or small herniation at C7-T1 without spinal canal stenosis nor neural foraminal narrowing. Left paracentral disc herniation at C3-C4 with degenerative change creating mild to moderate left neural foraminal narrowing and mild spinal canal stenosis. Degenerative disc disease at C4-C5 C5-C6 with variable degrees of neural foraminal narrowing. No destructive changes seen. Marrow signal within osseous structures are stable. MRI of the thoracic spine reveals multilevel severe degenerative disc disease with multilevel disc small central herniations. Disc herniation at T6/T7 abuts with anterior margin of the spinal cord. Marrow signal is diffusely heterogeneous without evidence of discrete lesion or diagnostic evidence of metastasis, destructive lesion. Left upper lobe lung mass with mediastinal adenopathy suspicious for malignancy. Plan is for outpatient EMG to be done with Dr. Pardo. Lab work pending includes LDH ISO, protein electrophoresis, vitamin B12 is 1923, vitamin E. LD screen negative. Patient has also been seen by pulmonary medicine and plan is for outpatient PET scan and follow-up with Dr. Gallardo for results. Patient does complain of a cough. She states her nausea is controlled. Patient is continued on ceftriaxone. Patient has been afebrile, heart rate 87, blood pressure 115/75, pulse ox 96% on 2 L nasal cannula. White count is normalized to 6.7. Potassium 3.3 and will be replaced. Creatinine improved to 0.98. Liver function tests are improved with total bilirubin 0.6, AST 37, ALT 33, alkaline phosphatase 76, CK is improved at 389. TSH came back at 1.4. 05/27: Patient has been afebrile, heart rate 80, blood pressure 109/74, pulse ox 93% on 1 L nasal cannula. Vitamin B12 1923. Protein electrophoresis interpretation: With hypogammaglobulinemia, although not seen in the study, a few light chain paraprotein cannot be excluded. Patient was evaluated by Dr. Silke callaway and patient has been accepted at [facility] inpatient rehab awaiting insurance authorization. Patient's will set up appointment with Dr. Pardo for EMG testing. A prescription for PET scanning has been provided. Nursing to follow up with guarding PET scan scheduling if this can be done while she is at inpatient rehab. Insurance is requesting a peer to peer evaluation. 05/28: Patient has been afebrile, blood pressure 157/84, heart rate 75, pulse ox 95% on room air. Peritoneal air discussion regarding insurance authorization was done with Dr. Marino. Insurance authorization for subacute rehab has been obtained. Patient was continued go to [facility] but this has been denied by [facility]. [facility] now evaluating the patient. If arrangements can be completed today, patient may be discharged either later today or tomorrow. Regarding PET scan, this will need to be canceled due to insurance payment issues. Patient is to follow-up with Dr. Gallardo as an outpatient. Objective - Vital Signs Vital signs: Vital Signs Temp 97.8 F 05/28/19 12:03 Pulse 75 05/28/19 12:03 Resp 17 05/28/19 12:03 BP 157/84 05/28/19 12:03 Pulse Ox 95 05/28/19 12:03 Intake & Output 05/27/19 05/28/19 05/28/19 18:59 06:59 18:59 Intake Total 450 1260 Balance 450 1260 Intake: Intake, IV Titration 450 0 Amount Sodium Chloride 0.9% 1, 400 0 000 ml @ 50 mls/hr IV . Q20H [facility] Rx#:[id number] cefTRIAXone 1 gm In 50 Sodium Chloride 0.9% 50 ml @ 100 mls/hr IVPB Q24HR [facility] Rx#:[id number] Oral 1260 Other: Voiding Method Bedside Commode Bedside Commode Bedside Commode Diaper Diaper Diaper # Voids 3 - Exam Review of Systems Constitutional: Denies anorexia, Denies chills, Denies chronic headaches, Denies chronic pain, Denies daytime sleepiness, Denies fatigue, Denies fever, Denies lethargy, Denies malaise, Denies night sweats, Denies poor appetite, Denies sweats, Denies weakness, Denies weight gain, Denies weight loss Ears, nose, mouth and throat: Reports ant. neck pain (Right side) Cardiovascular: Denies chest pain, Denies claudication, Denies decreased exercise tolerance, Denies dyspnea on exertion, Denies edema, Denies high blood pressure, Denies irregular heart beat, Denies leg edema, Denies lightheadedness, Denies orthopnea, Denies palpitations, Denies paroxysmal nocturnal dyspnea, Denies phlebitis, Denies rapid heart beat, Denies shortness of breath, Denies syncope Respiratory: Denies congestion, Denies cough, Denies cough with sputum, Denies dyspnea, Denies excessive sputum, Denies hemoptysis, Denies home oxygen, Denies pain, Denies pain on inspiration, Denies pleurisy, Denies respiratory infections, Denies sleep apnea, Denies snoring, Denies wheezing Gastrointestinal: Denies abdominal pain, Denies belching, Denies bloating, Denies BRBPR, Denies change in bowel habits, Denies coffee ground emesis, Denies constipation, Denies diarrhea, Denies dyspepsia, Denies early satiety, Denies excessive gas, Denies heartburn, Denies hematemesis, Denies hematochezia, Denies indigestion, Denies jaundice, Denies lactose intolerance, Denies loss of appetite, Denies melena, Denies nausea, Denies vomiting Genitourinary: Denies abnormal vaginal bleeding, Denies decreased libido, Denies difficulty conceiving, Denies difficulty voiding, Denies dysmenorrhea, Denies dyspareunia, Denies dysuria, Denies flank pain, Denies genital sores, Denies hematuria, Denies hot flashes, Denies incomplete emptying, Denies kidney stones, Denies menorrhagia, Denies mixed incontinence, Denies nocturia, Denies pelvic pain, Denies post void dribbling, Denies , Denies prolapse symptoms, Denies stress incontinence, Denies urge incontinence, Denies urgency, Denies urinary frequency, Denies vaginal discharge, Denies vaginal dryness, Denies vaginal itching, Denies vaginal odor Musculoskeletal: Denies myalgia Integumentary: Denies rash Neurological: Denies aphasia, Denies ataxia, Denies balance difficulties, Denies burning pain, Denies change in mentation, Denies change in smell/taste, Denies change in speech, Denies confusion, Denies convulsions, Denies double vision, Denies gait dysfunction, Denies head injury, Denies headaches, Denies hearing difficulties, Denies lack of coordination, Denies loss of vision, Denies memory loss, Denies migraines, Denies motor disturbance, Denies numbness, Denies paralysis, Denies paresthesias, Denies seizures, Denies sensory deficit, Denies spasticity, Denies syncope, Denies tic, Denies tingling, Denies transient paralysis, Denies tremors, Denies vertigo, Denies weakness, Denies visual changes Psychiatric: Denies anhedonia, Denies anxiety, Denies anxiety attacks, Denies change in appetite, Denies change in libido, Denies change in sleep habits, Denies confusion, Denies depression, Denies difficulty concentrating, Denies disorientation, Denies hallucinations, Denies hopelessness, Denies hypersomnia, Denies insomnia, Denies irritability, Denies memory loss, Denies mood swings, Denies paranoia, Denies sadness/tearfulness, Denies sleep disturbances, Denies suicidal ideation Endocrine: Denies cold intolerance, Denies deepening of the voice, Denies excessive sweating, Denies excessive thirst, Denies fatigue, Denies flushing, Denies heat intolerance, Denies high blood sugars, Denies increase in ring/shoe/hat size, Denies low blood sugars, Denies nocturia, Denies palpitations, Denies polydipsia, Denies polyphagia, Denies polyuria, Denies proptosis, Denies recent glucocorticoid use, Denies thyroid mass, Denies weight change Allergic/Immunologic: Denies allergic rhinitis, Denies anaphylaxis, Denies angioedema, Denies seasonal allergies, Denies urticaria, Denies wheezing Physical exam: - Constitutional General appearance: cooperative, no acute distress while resting in bed, brother is at bedside - EENT Eyes: anicteric sclerae, EOMI, dentition normal, normal appearance ENT: NA/AT, normal oropharynx - Neck Neck: normal ROM - Respiratory Respiratory: bilateral: CTA, negative: diminished, dullness - Cardiovascular Rhythm: regular Heart sounds: normal: S1, S2 Abnormal Heart Sounds: no systolic murmur, no diastolic murmur, no rub, no S3 Gallop, no S4 Gallop, no click, no other - Gastrointestinal General gastrointestinal: normal bowel sounds, soft - Integumentary Integumentary: decreased turgor, normal - Neurologic Neurologic: CNII-XII intact - Musculoskeletal Musculoskeletal: generalized weakness (Right upper extremity 3 4/5, left lower extremity 4+ over 5) - Psychiatric Psychiatric: A&O x's 3, appropriate affect, intact judgment & insight - Labs CBC & Chem 7: 05/26/19 06:55 05/26/19 06:55 Assessment and Plan Plan: 1. Acute urinary tract infection, patient is started on IV Rocephin, cultures are sent, IV hydration. Urine culture remains pending. 2. Lung mass, spiculated left mid lung lobe, 3.3 x 4.4 cm new, patient was seen by Dr. Huizar, and Dr. Newell, patient would need to be biopsied for this lung mass, tobacco cessation was requested to be done permanently, outpatient PET scan canceled due to insurance coverage issues 3. Weakness upper extremity right side, weakness lower extremity left side, MRI of the brain to be done and MRI of the cervical spine and thoracic spine as a weston added by Dr. Hebert, patient would have an EMG to be done as an outpatient, was set up to see Dr. Pardo as an outpatient 4. Degenerative disc disease of lumbar spine and stenosis most severe at the left L5-S1. Multilevel disc herniation of the cervical spine status post cervical epidural steroid injection C7-T1 on April [address] Vaz, pain management. Continue Lyrica 25 mg twice daily. Patient has seen Dr. Conway and outpatient, no surgical intervention recommended, he requested a neurologist to see the patient, EMG of the upper extremity to be done, MRI of the brain to evaluate for brain metastases as well as noted degenerative disease of the brain 5. History of breast cancer 20 years ago status post lumpectomy and radiation, stable. 6. Hypertension. Continue lisinopril 10 mg at bedtime, Lopressor 25 mg twice daily. 7. Hyperlipidemia. Continue atorvastatin 10 mg at bedtime. 8. History of pulmonary embolus 4 years ago on Xarelto. 9. Fibromyalgia. Continue current pain management. 10. Migraine headaches, stable. 11. Irritable bowel syndrome. Continue Lomotil as needed. 12. Recurrent depression. Continue Cymbalta 60 mg at bedtime, trazodone 50 mg at bedtime. 13. Remote history of tobacco use and dependence. 14. Daily alcohol use. No history of seizure activity. Monitor for DTs. 15. DVT prophylaxis. Xarelto 16. GI prophylaxis and gastroesophageal reflux disease. Protonix. Discharge plan: Insurance authorization for subacute rehab has been obtained. Awaiting ECF acceptance. Impression and plan of care have been directed as dictated by the signing physician. Tia Harley nurse practitioner acting as scribe for signing physician.
--- NOTE | 2019-05-28 14:09 | P.DS ---
Providers Date of admission: 05/25/19 00:42 Expected date of discharge: 06/02/19 Attending physician: Kasey Marino Consults: 05/25/19 12:25 Consult Physician Routine Consulting Provider: Javier Huizar Consult Reason/Comments: lung mass Do you want consulting provider notified?: Yes Consult Physician Routine Consulting Provider: Sukhwinder Newell Consult Reason/Comments: lung mass Do you want consulting provider notified?: Yes 05/25/19 12:28 Consult Physician Routine Consulting Provider: Jacklyn Hebert Consult Reason/Comments: upper right and lower left extremity paresis Do you want consulting provider notified?: Yes 05/26/19 14:22 Consult Physician Routine Consulting Provider: Andrew Seay Consult Reason/Comments: ip rehab Do you want consulting provider notified?: Yes Primary care physician: Jayden Burton [place] [facility] Course: This is a 73-year-old female patient of Dr. Burton with past medical history of multilevel disc herniation C3-C4, C4-5 disc bulging and facet arthropathy C5 6 disc bulging and facet joint hypertrophy, C6 7 disc herniation multilevel canal stenosis. She has been under the care of pain management and underwent cervical epidural steroid injection C7-T1 on April [address] Vaz. Patient gives history that about 4 1/2 months ago she started having pain in her neck and then it gradually went into her thoracic area adjacent to the right arm until the thumb. At that initial time, her legs did not cause any problem she did not have any low back pain. She subsequently developed all over muscle aches. She was admitted from our facility 04/29/2019, MRIs lumbar spine MRI cervical spine done at that time and was seen by Dr. Conway. She was arm prescribed prednisone to go home on, and outpatient physical therapy, was seen by Dr. Conway post hospital follow-up, and has recommended a neurologist to evaluate her for ongoing weakness of the arm and the lower extremities. Patient complains of weakness right arm, and weakness of the left lower leg is now chronic. Imaging studies during her last admission 04/29/2019 includedCAT scan of the lumbar spine showed advanced degenerative disc disease throughout as well as hypertrophic facet arthropathy and Baastrup's disease. Variable mild spinal canal stenosis due to posterior disc bulges. Variable neural foraminal stenosis severe at the left L5-S1. Bile duct dilated 1.1 cm probably secondary to postcholecystectomy status post patient age. Tiny hiatal hernia and sigmoid diverticulosis. MRI cervical spine 03/12/2019 C2-C3 small broad-based disc bulge without spinal stenosis C3-C4 left paracentral disc herniation mild spinal canal stenosis left, C4-C5 disc bulge with mild spinal canal stenosis left right neural foraminal narrowing C5-C6 facet arthropathy, severe left neural foraminal narrowing and mild right neural foraminal narrowing mild spinal canal stenosis C6-C7 disc bulge mild bilateral neural foraminal narrowing without spinal stenosis, C7-T1 central disc herniation, without spinal canal stenosis nor neural foraminal narrowing History of breath breast cancer 20 years ago with lumpectomy and radiation, fibromyalgia, gastroesophageal reflux disease, hypertension, hyperlipidemia, generalized osteoarthritis, pulmonary embolus 4 years ago on Xarelto, migraine headaches, irritable bowel syndrome, intermittent tobacco smoking, after quitting tobacco several years ago and daily alcohol intake. In the emergency room with her presentation of theright upper extremity left ower extremity weakness, patient has generalized myalgia and has difficulty in ambulating. Patient has fallen, and had fell on her buttocks, imaging studies ER, CAT scan of the brain mild atrophy no acute intracranial abnormality, no mass effect no midline shift. However chest x-ray shows something significant, masslike left midlung density is a change, new mediastinal adenopathy, density in the right paratracheal region could be mediastinal lymphadenopathy, no pleural effusion,bony thorax appears intact 3 cm masslike infiltrate left mid lung. CAT scan of the chest with IV contrast shows 3.3 x 4.4 x 3 cm spiculated mass lesion in the anterior inferior aspect of the left upper lobe compatible with neoplasm, anterior lateral aspect of this mass lesion has a pleural-based component, there is right pleural effusion and subsegmental atelectasis right lung base, paratracheal lymph node, fatty infiltration of liver, mild central intrahepatic and adnexa hepatic duct dilatation noted of unknown etiology, probable left adrenal adenoma. After the state patient does not have any left thoracic pain, no hemoptysis, no cough, no pleurisy, no weight loss, appetite is marginally okay,. Urinalysis shows gravity of 1.038, nitrite positive, urine WBC 182, urine RBC 111, lactic acid 2.6 elevated, liver function test is normal except AST 53 slightly elevated, troponin 0.012, CK 7.33 patient consult would be made with Dr. Newell, Dr. huizar and, IV antibiotic for presumed urinary tract infection, Dr. Kim for neurology, for upper and lower extremity weakness, MRI of the brain to be done. EMG would need to be process at as an outpatient 05/26: Patient has been seen by Dr. Hebert for known cervical and lumbar spondylosis with cervical and lumbar radicular symptoms. Lower extremities are especially weak proximally and may be confounded by myopathy possibly steroid in duced given her recent history of intermittent steroid use. He recommends scanning central neural access to rule out [employer] metastasis. MRI of the brain reveals punctate 2 mm enhancement in the right cerebral hemisphere too small to characterize. Early metastasis is in the differential. Degenerative nonspecific white matter changes most typical remote microvascular ischemia. Faint enhancement of the right seventh/eighth cranial nerve complex. Tiny acoustic neuroma in the differential. MRI of the cervical spine reveals small central disc protrusion or small herniation at C7-T1 without spinal canal stenosis nor neural foraminal narrowing. Left paracentral disc herniation at C3-C4 with degenerative change creating mild to moderate left neural foraminal narrowing and mild spinal canal stenosis. Degenerative disc disease at C4-C5 C5-C6 with variable degrees of neural foraminal narrowing. No destructive changes seen. Marrow signal within osseous structures are stable. MRI of the thoracic spine reveals multilevel severe degenerative disc disease with multilevel disc small central herniations. Disc herniation at T6/T7 abuts with anterior margin of the spinal cord. Marrow signal is diffusely heterogeneous without evidence of discrete lesion or diagnostic evidence of metastasis, destructive lesion. Left upper lobe lung mass with mediastinal adenopathy suspicious for malignancy. Plan is for outpatient EMG to be done with Dr. Pardo. Lab work pending includes LDH ISO, protein electrophoresis, vitamin B12 is 1923, vitamin E. LD screen negative. Patient has also been seen by pulmonary medicine and plan is for outpatient PET scan and follow-up with Dr. Gallardo for results. Patient does complain of a cough. She states her nausea is controlled. Patient is continued on ceftriaxone. Patient has been afebrile, heart rate 87, blood pressure 115/75, pulse ox 96% on 2 L nasal cannula. White count is normalized to 6.7. Potassium 3.3 and will be replaced. Creatinine improved to 0.98. Liver function tests are improved with total bilirubin 0.6, AST 37, ALT 33, alkaline phosphatase 76, CK is improved at 389. TSH came back at 1.4. 05/27: Patient has been afebrile, heart rate 80, blood pressure 109/74, pulse ox 93% on 1 L nasal cannula. Vitamin B12 1923. Protein electrophoresis interpretation: With hypogammaglobulinemia, although not seen in the study, a few light chain paraprotein cannot be excluded. Patient was evaluated by Dr. Seay and patient has been accepted at [facility] inpatient rehab awaiting insurance authorization. Patient's will set up appointment with Dr. Pardo for EMG testing. A prescription for PET scanning has been provided. Nursing to follow up with guarding PET scan scheduling if this can be done while she is at inpatient rehab. Insurance is requesting a peer to peer evaluation. 05/28: Patient has been afebrile, blood pressure 157/84, heart rate 75, pulse ox 95% on room air. Peritoneal air discussion regarding insurance authorization was done with Dr. Marino. Insurance authorization for subacute rehab has been obtained. Patient was continued go to [facility] but this has been denied by [facility]. [facility] now [facility] the [facility]. If arrangements can be completed today, patient may be discharged either later today or tomorrow. Regarding PET scan, this will need to be canceled due to insurance payment issues. Patient is to follow-up with Dr. Gallardo as an outpatient. Discussed case with oncology, discharge will be held and we will plan for bronchoscopy with biopsy on Friday of next week. Xarelto discontinued. 05/30: Patient's pain is better controlled today with Percocet. Patient also has been resumed on Lyrica but at a dose of 50 mg twice daily. She states that she was on 25 mg twice daily for a while without improvement. She continues to have slightly more weakness on the right arm. Lower extremities are equal. Mental status is stable. Lab work reveals a CBC within normal limits. CO2 33, blood sugar 104, albumin 3.4. She has been afebrile, heart rate 82, blood pressure 116/74, pulse ox 92% on room air. 05/31 patient's pain is the same as yesterday. Complains of pain despite B: Percocet and Lyrica and Cymbalta. Vitals are stable. Plan for bronchoscopy tomorrow Xarelto held 06/01: The patient states the pain is still a #5 out of 10. She has been afebri le, heart rate 89, blood pressure 115/75, pulse ox 93% on room air. This afternoon, patient underwent bronchoscopy, transbronchial needle aspirate of the right paratracheal lymph node, transbronchial needle aspirate and endobronchial biopsy of the left upper lobe endobronchial irregularities with Dr. Huizar. We are waiting for except dense at [facility] for discharge plan. Anticipate discharge tomorrow. 06/02: Patient has been afebrile, heart rate 78, blood pressure 171/89, pulse ox 93% on room air. Pathology/cytology reports pending. The patient is noted to have increasing weakness and some slight mental status changes. Patient is aware of where she is. She is having difficulty with pain control. Discussed plan with the patient and her brother. Patient has been on morphine which will be discontinued. Xanax ordered this morning for anxiety. Patient will require [facility] due to balance between pain control and sedation. Patient will be discharged to [facility] today in stable condition. Discharge diagnoses: 1. Acute urinary tract infection 2. Lung mass, spiculated left mid lung lobe, 3.3 x 4.4 cm new, status post br onchoscopy and biopsies. 3. Weakness upper extremity right side, weakness lower extremity left side, EMG to be done as an outpatient with Dr. Pardo. 4. Degenerative disc disease of lumbar spine and stenosis most severe at the left L5-S1. Multilevel disc herniation of the cervical spine status post cervical epidural steroid injection C7-T1 on April [address] Vaz, pain management. 5. History of breast cancer 20 years ago status post lumpectomy and radiation, stable. 6. Hypertension. 7. Hyperlipidemia. 8. History of pulmonary embolus 4 years ago on Xarelto. 9. Fibromyalgia. 10. Migraine headaches, stable. 11. Irritable bowel syndrome. 12. Recurrent depression. 13. Remote history of tobacco use and dependence. 14. Daily alcohol use. No history of seizure activity. 15. Gastroesophageal reflux disease. Discharge plan: Insurance authorization for subacute rehab has been obtained. Patient has been accepted at [facility] and plan of care have been directed as dictated by the signing physician. Tia Harley nurse practitioner acting as scribe for signing physician. Patient Condition at Discharge: Good Plan - Discharge Summary Discharge Rx Participant: No New Discharge Prescriptions: New Acetaminophen Tab [Tylenol] 650 mg PO Q6HR PRN tab PRN Reason: Mild Pain Or Fever > 100.5 Pregabalin [Lyrica] 25 mg PO BID 3 Days #6 capsule oxyCODONE-APAP 5-325MG [Percocet 5-325 mg] 1 each PO Q6HR PRN #12 tab PRN Reason: Pain ALPRAZolam [Xanax] 0.25 mg PO BID PRN #6 tab PRN Reason: Anxiety Continue Atorvastatin [Lipitor] 10 mg PO HS Omeprazole 20 mg PO HS Metoprolol Tartrate [Lopressor] 25 mg PO BID Magnesium Oxide [Mag-Ox] 400 mg PO TID DULoxetine HCL [Cymbalta] 60 mg PO HS Rivaroxaban [Xarelto] 15 mg PO HS B12/Levomefolate Calcium/B-6 [Foltx Tablet] 1 tab PO HS traZODone HCL [Desyrel] 50 mg PO HS PRN PRN Reason: Insomnia Cholecalciferol [Vitamin D3 (25 Mcg = 1000 Iu)] 5,000 unit PO HS Diphenox-Atrop 2.5-0.025 mg [Lomotil] 1 tab PO QID PRN #12 tab PRN Reason: Diarrhea Discontinued HYDROcodone/APAP 7.5-325MG [Elrama 7.5-325] 1 tab PO BID Discharge Medication List Atorvastatin [Lipitor] 10 mg PO HS 05/09/15 [History] Omeprazole 20 mg PO HS 05/10/15 [History] B12/Levomefolate Calcium/B-6 [Foltx Tablet] 1 tab PO HS 03/24/19 [History] DULoxetine HCL [Cymbalta] 60 mg PO HS 03/24/19 [History] Magnesium Oxide [Mag-Ox] 400 mg PO TID 03/24/19 [History] Metoprolol Tartrate [Lopressor] 25 mg PO BID 03/24/19 [History] Rivaroxaban [Xarelto] 15 mg PO HS 03/24/19 [History] traZODone HCL [Desyrel] 50 mg PO HS PRN 03/31/19 [History] Cholecalciferol [Vitamin D3 (25 Mcg = 1000 Iu)] 5,000 unit PO HS 05/24/19 [History] Acetaminophen Tab [Tylenol] 650 mg PO Q6HR PRN tab 05/28/19 [Rx] ALPRAZolam [Xanax] 0.25 mg PO BID PRN #6 tab 06/02/19 [Rx] Diphenox-Atrop 2.5-0.025 mg [Lomotil] 1 tab PO QID PRN #12 tab 06/02/19 [Rx] Pregabalin [Lyrica] 25 mg PO BID 3 Days #6 capsule 06/02/19 [Rx] oxyCODONE-APAP 5-325MG [Percocet 5-325 mg] 1 each PO Q6HR PRN #12 tab 06/02/19 [Rx] Follow up Appointment(s)/Referral(s): Thomas Gallardo DO [Doctor of Osteopathic Medicine] - 1 Week Mike Pardo DO [STAFF PHYSICIAN] - 1 Week (For outpatient EMG/NCS r/o motor radiculopathy) Jayden Burton MD [Primary Care Provider] - 1 Week (at [facility]) Discharge Disposition: TRANSFER TO SNF/ECF
--- NOTE | 2019-05-28 14:12 | P.PN ---
Subjective Progress Note Date: 05/28/19 Principal diagnosis: New Lung Mass Planning outpatient biopsy and follow-up Objective - Vital Signs Vital signs: Vital Signs Temp 97.8 F 05/28/19 12:03 Pulse 75 05/28/19 12:03 Resp 17 05/28/19 12:03 BP 157/84 05/28/19 12:03 Pulse Ox 95 05/28/19 12:03 Intake & Output 05/27/19 05/28/19 05/28/19 18:59 06:59 18:59 Intake Total 450 1260 Balance 450 1260 Intake: Intake, IV Titration 450 0 Amount Sodium Chloride 0.9% 1, 400 0 000 ml @ 50 mls/hr IV . Q20H SE[facility]INO Rx#:[id number] cefTRIAXone 1 gm In 50 Sodium Chloride 0.9% 50 ml @ 100 mls/hr IVPB Q24HR SE[facility]INO Rx#:[id number] Oral 1260 Other: Voiding Method Bedside Commode Bedside Commode Bedside Commode Diaper Diaper Diaper # Voids 3 - Exam General: Alert and Oriented x3, No Acute Distress Head: Normocytic, Atraumatic Neck: Supple Mouth: No Lesions, No Thrush Eyes: Non-sclerotic No Palpable cervical, supraclavicular, axillary adenopathy Heart: Regular Rate, Regular Rhythm Lungs: Clear to Ausculations, No Wheeze, No Rhonchi, Diminishe bilateral lower lobes, No increased respiratory effort noted Abdomen: Soft, Non-Distended, Non-Tended, BSx4 Extremities: No Edema, Equal Strength Neurological: No Focal Defects: No sensory or motor deficits noted Psych: Calm and cooperative - Labs CBC & Chem 7: 05/26/19 06:55 05/26/19 06:55 Assessment and Plan Plan: Assessment and Recommendations: New Lung Mass: - 3.3x4.4x3cm spiculated mass lesion in the anterior and inferior aspects of the left upper lobe concerning for neoplasm - Tissue biopsy will be needed to determine cell source and confirmation of malignant etiology - 2.5x2.9cm Pretrachial lymph node and 3.7x4cm aorticopulmonary lymph node noted Persistent and progressive weakness, unilateral: - RUE and LLE - Follows outpatient with [facility] - MRIs reviewed - Neurology has been asked to further evaluate - MRI of the brain was reviewed and no apparent concern for malignancy at this time. Other differential of concern would be a paraneoplastic neurological syndrome. If all other differentials ruled out than concideration of onconeural antibodies for Hu (anti-hu), CRMPs, Amphiphysin, Yo, Ri, or Ma2. - Will discuss further with neurology if this is consideration after ful neurological review Plan: - Tissue biopsy, defer to pulmonology - Further staging can be completed without patient PET before or after bx. - Discussed findings and plan for further work-up with patient - Continue supportive care - Patient to follow-up in office after biopsy - Will have first office visit with patient after biopsy made. - Discussed with pulmonology - Abx per primary team for UTI SHERIN Gonzales
--- NOTE | 2019-05-28 15:15 | P.PN ---
Progress Note - Text Progress Note Date: 05/28/19 Called by oncology BARGE WORKER regarding ordering paraneoplastic panel to screen for peripheral conditions. Suggest sending paraneoplastic autoantibody serum evaluation test ID: [id number] to the [facility].
[2019-05-28] MEDS: CHOLECALCIFEROL 1,000 UNIT TAB PO SCH (20:43)
[2019-05-28] MEDS: DULoxetine HCL 60 MG CAPSULE.DR PO SCH (20:44)
[2019-05-28] MEDS: PANTOPRAZOLE 40 MG TABLET PO SCH (20:44)
[2019-05-28] MEDS: ATORVASTATIN 10 MG TAB PO SCH (20:44)
[2019-05-28] MEDS: CYANOCOBALAMIN-FA-PYRIDOXINE 1 EACH TAB PO SCH (20:45)
[2019-05-29] MEDS: HYDROcodone/APAP 7.5-325MG 1 EACH TAB PO PRN ×4 (00:56→20:03)
[2019-05-29] MEDS: MORPHINE SULFATE 4 MG/ML SYRINGE IV PRN ×4 (03:56→22:52)
[2019-05-29] MEDS: MAGNESIUM OXIDE 400 MG TAB PO SCH ×3 (08:05→21:24)
[2019-05-29] MEDS: METOPROLOL TARTRATE 25 MG TAB PO SCH ×2 (08:05→21:25)
--- NOTE | 2019-05-29 16:06 | P.PN ---
Subjective Progress Note Date: 05/29/19 his is a 73-year-old female patient of Dr. Burton with past medical history of multilevel disc herniation C3-C4, C4-5 disc bulging and facet arthropathy C5 6 disc bulging and facet joint hypertrophy, C6 7 disc herniation multilevel canal stenosis. She has been under the care of pain management and underwent cervical epidural steroid injection C7-T1 on April [address] Vaz. Patient gives history that about 4 1/2 months ago she started having pain in her neck and then it gradually went into her thoracic area adjacent to the right arm until the thumb. At that initial time, her legs did not cause any problem she did not have any low back pain. She subsequently developed all over muscle ac hes. She was admitted from our facility 04/29/2019, MRIs lumbar spine MRI cervical spine done at that time and was seen by Dr. Conway. She was arm prescribed prednisone to go home on, and outpatient physical therapy, was seen by Dr. Conway post hospital follow-up, and has recommended a neurologist to evaluate her for ongoing weakness of the arm and the lower extremities. Patient complains of weakness right arm, and weakness of the left lower leg is now chronic. Imaging studies during her last admission 04/29/2019 includedCAT scan of the lumbar spine showed advanced degenerative disc disease throughout as well as hypertrophic facet arthropathy and Baastrup's disease. Variable mild spinal canal stenosis due to posterior disc bulges. Variable neural foraminal stenosis severe at the left L5-S1. Bile duct dilated 1.1 cm probably secondary to postcholecystectomy status post patient age. Tiny hiatal hernia and sigmoid diverticulosis. MRI cervical spine 03/12/2019 C2-C3 small broad-based disc bulge without spinal stenosis C3-C4 left paracentral disc herniation mild spinal canal stenosis left, C4-C5 disc bulge with mild spinal canal stenosis left right neural foraminal narrowing C5-C6 facet arthropathy, severe left neural foraminal narrowing and mild right neural foraminal narrowing mild spinal canal stenosis C6-C7 disc bulge mild bilateral neural foraminal narrowing without spinal stenosis, C7-T1 central disc herniation, without spinal canal stenosis nor neural foraminal narr owing History of breath breast cancer 20 years ago with lumpectomy and radiation, fibromyalgia, gastroesophageal reflux disease, hypertension, hyperlipidemia, generalized osteoarthritis, pulmonary embolus 4 years ago on Xarelto, migraine headaches, irritable bowel syndrome, intermittent tobacco smoking, after quitting tobacco several years ago and daily alcohol intake. In the emergency room with her presentation of theright upper extremity left ower extremity weakness, patient has generalized myalgia and has difficulty in ambulating. Patient has fallen, and had fell on her buttocks, imaging studies ER, CAT scan of the brain mild atrophy no acute intracranial abnormality, no mass effect no midline shift. However chest x-ray shows something significant, masslike left midlung density is a change, new mediastinal adenopathy, density in the right paratracheal region could be mediastinal lymphadenopathy, no pleural effusion,bony thorax appears intact 3 cm masslike infiltrate left mid lung. CAT scan of the chest with IV contrast shows 3.3 x 4.4 x 3 cm spiculated mass lesion in the anterior inferior aspect of the left upper lobe compatible with neoplasm, anterior lateral aspect of this mass lesion has a pleural-based component, there is right pleural effusion and subsegmental atelectasis right lung base, paratracheal lymph node, fatty infiltration of liver, mild central intrahepatic and adnexa hepatic duct dilatation noted of unknown etiology, probable left adrenal adenoma. After the state patient does not have any left thoracic pain, no hemoptysis, no cough, no pleurisy, no weight loss, appetite is marginally okay,. Urinalysis shows gravity of 1.038, nitrite positive, urine WBC 182, urine RBC 111, lactic acid 2.6 elevated, liver function test is normal except AST 53 slightly elevated, troponin 0.012, CK 7.33 patient consult would be made with Dr. Newell, Dr. huizar and, IV antibiotic for presumed urinary tract infection, Dr. Kim for neurology, for upper and lower extremity weakness, MRI of the brain to be done. EMG would need to be process at as an outpatient 05/26: Patient has been seen by Dr. Hebert for known cervical and lumbar spondylosis with cervical and lumbar radicular symptoms. Lower extremities are especially weak proximally and may be confounded by myopathy possibly steroid induced given her recent history of intermittent steroid use. He recommends scanning central neural access to rule out REQUISITION APPROVER metastasis. MRI of the brain reveals punctate 2 mm enhancement in the right cerebral hemisphere too small to characterize. Early metastasis is in the differential. Degenerative nonspecific white matter changes most typical remote microvascular ischemia. Faint enhancement of the right seventh/eighth cranial nerve complex. Tiny acoustic neuroma in the differential. MRI of the cervical spine reveals small central disc protrusion or small herniation at C7-T1 without spinal canal stenosis nor neural foraminal narrowing. Left paracentral disc herniation at C3-C4 with degenerative change creating mild to moderate left neural foraminal narrowing and mild spinal canal stenosis. Degenerative disc disease at C4-C5 C5-C6 with variable degrees of neural foraminal narrowing. No destructive changes seen. Marrow signal within osseous structures are stable. MRI of the thoracic spine reveals multilevel severe degenerative disc disease with multilevel disc small central herniations. Disc herniation at T6/T7 abuts with anterior margin of the spinal cord. Marrow signal is diffusely heterogeneous without evidence of discrete lesion or diagnostic evidence of metastasis, destructive lesion. Left upper lobe lung mass with mediastinal adenopathy suspicious for malignancy. Plan is for outpatient EMG to be done with Dr. Pardo. Lab work pending includes LDH ISO, protein electrophoresis, vitamin B12 is 1923, vitamin E. LD screen negative. Patient has also been seen by pulmonary medicine and plan is for outpatient PET scan and follow-up with Dr. Gallardo for results. Patient does complain of a cough. She states her nausea is controlled. Patient is continued on ceftriaxone. Patient has been afebrile, heart rate 87, blood pressure 115/75, pulse ox 96% on 2 L nasal cannula. White count is normalized to 6.7. Potassium 3.3 and will be replaced. Creatinine improved to 0.98. Liver function tests are improved with total bilirubin 0.6, AST 37, ALT 33, alkaline phosphatase 76, CK is improved at 389. TSH came back at 1.4. 05/27: Patient has been afebrile, heart rate 80, blood pressure 109/74, pulse ox 93% on 1 L nasal cannula. Vitamin B12 1923. Protein electrophoresis interpretation: With hypogammaglobulinemia, although not seen in the study, a few light chain paraprotein cannot be excluded. Patient was evaluated by Dr. Malcolm tidwell and patient has been accepted at [facility] inpatient rehab awaiting insurance authorization. Patient's will set up appointment with Dr. Pardo for EMG testing. A prescription for PET scanning has been provided. Nursing to follow up with guarding PET scan scheduling if this can be done while she is at inpatient rehab. Insurance is requesting a peer to peer evaluation. 05/28: Patient has been afebrile, blood pressure 157/84, heart rate 75, pulse ox 95% on room air. Peritoneal air discussion regarding insurance authorization was done with Dr. Marino. Insurance authorization for subacute rehab has been obtained. Patient was continued go to [facility] but this has been denied by [facility]. [facility] is now evaluating the patient. If arrangements can be completed today, patient may be discharged either later today or tomorrow. Regarding PET scan, this will need to be canceled due to insurance payment issues. Patient is to follow-up with Dr. Gallardo as an outpatient. 05/29 patient examined bedside. Discharge was held for concern of paraproteinemia and and paraneoplastic syndrome concerns. Patient complains of pain throughout her body likely muscular than joint pains. She feels a pressure-like sensation mostly in her muscles. Patient does take Lyrica at home and 25 twice a day but is currently not on Lyrica. Will restart patient on Lyrica 50 mg twice a day along with Cymbalta as well as Avoca. Patient states not was not helping with the pain and is currently taking IV morphine every 6 hours to help relieve the pain. On evaluation of the vitals today patient has a temp 97.7 pulse 79 pressure 1 from 119/78 saturating at room air 94%. Anthony held. Objective - Vital Signs Vital signs: Vital Signs Temp 97.7 F 05/29/19 13:00 Pulse 79 05/29/19 14:30 Resp 16 05/29/19 14:30 BP 119/78 05/29/19 13:00 Pulse Ox 94 L 05/29/19 13:00 Intake & Output 05/28/19 05/29/19 05/29/19 18:59 06:59 18:59 Intake Total 50 590 910 Output Total 250 250 Balance 50 340 660 Intake: Intake, IV Titration 50 50 Amount cefTRIAXone 1 gm In 50 50 Sodium Chloride 0.9% 50 ml @ 100 mls/hr IVPB Q24HR [facility] Rx#:[id number] Oral 590 860 Output: Urine 250 250 Other: Voiding Method Bedside Commode Bedside Commode Bedside Commode Diaper Diaper Diaper # Voids 7 2 - Exam Review of systenms Constitutional: Denies chills, Denies fever, Denies lethargy, Denies malaise, Denies poor appetite, Denies weakness, Denies weight loss Eyes: denies decreased vision, denies diplopia, denies discharge, denies pain Ears: deny: decreased hearing Ears, nose, mouth and throat: Denies dental pain, Denies headache, Denies nasal discharge, Denies nose pain Cardiovascular: Denies chest pain, Denies decreased exercise tolerance, Denies edema, Denies high blood pressure, Denies irregular heart beat, Denies palpitations, Denies paroxysmal nocturnal dyspnea, Denies rapid heart beat, Denies shortness of breath Respiratory: Denies congestion, Denies cough, Denies cough with sputum, Denies dyspnea, Denies home oxygen, Denies wheezing Gastrointestinal: Denies abdominal pain, Denies change in bowel habits, Denies coffee ground emesis, Denies early satiety, Denies excessive gas, Denies heartburn, Denies hematemesis, Denies hematochezia, Denies loss of appetite, Denies nausea, Denies vomiting Genitourinary: Denies dysuria, Denies flank pain, Denies kidney stones, Denies menorrhagia, Denies urgency, Denies urinary frequency Musculoskeletal: Denies gait dysfunction, Denies limitation of motion, endorses muscle pain and diffuse pain throughout body with generalized weakness Integumentary: Denies rash, Denies wounds, Denies brittle nails, Denies change in hair/nails, Denies darkening of skin Neurological: Denies balance difficulties, Denies change in speech, Denies double vision, Denies gait dysfunction, Denies loss of vision, Denies motor disturbance, Denies numbness, Denies paralysis, Denies paresthesias, Denies seizures Psychiatric: Denies anxiety, Denies depression Endocrine: Denies excessive sweating, Denies excessive thirst, Denies high blood sugars, Denies palpitations Hematologic/Lymphatic: Denies easy bruising, Denies lymphadenopathy - Constitutional General appearance: cooperative, no acute distress, obese - EENT Eyes: anicteric sclerae, PERRLA, normal appearance ENT: hearing grossly normal - Neck Neck: no lymphadenopathy, normal ROM, no other, no rigidity, no stridor, no thyromegaly - Respiratory Respiratory: bilateral: CTA, negative: diminished, dullness, rales, rhonchi - Cardiovascular Rhythm: regular Heart sounds: normal: S1, S2 Abnormal Heart Sounds: no systolic murmur, no diastolic murmur, no rub, no S3 Gallop, no S4 Gallop, no click, no other - Gastrointestinal General gastrointestinal: normal bowel sounds, soft - Integumentary Integumentary: no rash - Neurologic Neurologic: CNII-XII intact - Musculoskeletal Musculoskeletal: Generalized weakness weakness more pronounced in the lower extremity compared to upper extremity - Psychiatric Psychiatric: A&O x's 3, appropriate affect - Labs CBC & Chem 7: 05/26/19 06:55 05/26/19 06:55 Assessment and Plan Plan: 1. Acute urinary tract infection, patient is started on IV Rocephin, cultures are sent, IV hydration. Urine culture remains pending. 2. Lung mass, spiculated left mid lung lobe, 3.3 x 4.4 cm new, patient was seen by Dr. Huizar, and Dr. Newell, patient would need to be biopsied for this lung mass, tobacco cessation was requested to be done permanently, outpatient PET scan canceled due to insurance coverage issues bronchoscopy scheduled for his 06/01 3. Weakness upper extremity right side, weakness lower extremity left side, MRI of the brain to be done and MRI of the cervical spine and thoracic spine as above added by Dr. Hebert, patient would have an EMG to be done as an outpatient, was set up to see Dr. Pardo as an outpatient 4. Degenerative disc disease of lumbar spine and stenosis most severe at the left L5-S1. Multilevel disc herniation of the cervical spine status post cervical epidural steroid injection C7-T1 on April [address] Vaz, pain manage ment. Patient has seen Dr. Conway and outpatient, no surgical intervention recommended, he requested a neurologist to see the patient, EMG of the upper extremity to be done, MRI of the brain to evaluate for brain metastases as well as noted degenerative disease of the brain 5. History of breast cancer 20 years ago status post lumpectomy and radiation, stable. 6. Hypertension. Continue lisinopril 10 mg at bedtime, Lopressor 25 mg twice daily. 7. Hyperlipidemia. Continue atorvastatin 10 mg at bedtime. 8. History of pulmonary embolus 4 years ago on Xarelto. 9. Fibromyalgia. Continue current pain management. Continue Cymbalta trazodone addition of Lyrica 50 twice a day continue Av[place] at 7.5 every 6 with IV morphine 10. Migraine headaches, stable. 11. Irritable bowel syndrome. Continue Lomotil as needed. 12. Recurrent depression. Continue Cymbalta 60 mg at bedtime, trazodone 50 mg at bedtime. 13. Remote history of tobacco use and dependence. 14. Daily alcohol use. No history of seizure activity. Monitor for DTs. 15. DVT prophylaxis. Xarelto 16. GI prophylaxis and gastroesophageal reflux disease. Protonix. Discharge plan: Patient to stay 29/3 to stay for bronchoscopy
[2019-05-29 19:36] LABS: LD Isoenzymes 1 28 % (19-38); LD Isoenzymes 2 37 % (30-43); LD Isoenzymes 3 23 % (16-26); LD Isoenzymes 4 7 % (3-12); LD Isoenzymes 5 5 % (3-14); Lactacte Dehydrogenase(LD) ISO 182 U/L (120-250)
[2019-05-29] MEDS: CYANOCOBALAMIN-FA-PYRIDOXINE 1 EACH TAB PO SCH (21:23)
[2019-05-29] MEDS: CHOLECALCIFEROL 1,000 UNIT TAB PO SCH (21:23)
[2019-05-29] MEDS: PREGABALIN 50 MG CAP PO SCH (21:24)
[2019-05-29] MEDS: PANTOPRAZOLE 40 MG TABLET PO SCH (21:24)
[2019-05-29] MEDS: ATORVASTATIN 10 MG TAB PO SCH (21:24)
[2019-05-29] MEDS: DULoxetine HCL 60 MG CAPSULE.DR PO SCH (21:25)
[2019-05-29] MEDS: traZODone HCL 50 MG TAB PO PRN (21:25)
[2019-05-30] MEDS: oxyCODONE-APAP 5-325MG 1 EACH TAB PO PRN ×3 (01:14→19:04)
[2019-05-30] MEDS: MORPHINE SULFATE 4 MG/ML SYRINGE IV PRN ×4 (04:14→21:50)
[2019-05-30 07:30] LABS: Albumin 3.4 g/dL (3.5-5.0); Calcium 9.7 mg/dL (8.4-10.2); Potassium 4.1 mmol/L (3.5-5.1); Total Bilirubin 0.4 mg/dL (0.2-1.3); Total Protein 5.9 g/dL (6.3-8.2)
[2019-05-30 07:38] LABS: Basophils # (A) 0.1 k/uL (0-0.2); Basophils % (A) 1 %; Eosinophils # (A) 0.2 k/uL (0-0.7); Eosinophils % (A) 3 %; HCT 38.9 % (34.0-46.0); Lymphocytes # (A) 2.1 k/uL (1.0-4.8); Lymphocytes % (A) 38 %; MCH 32.5 pg (25.0-35.0); MCHC 33.4 g/dL (31.0-37.0); MCV 97.3 fL (80.0-100.0); Mean Platelet Volume 6.5; Monocytes # (A) 0.6 k/uL (0-1.0); Monocytes % (A) 12 %; Neutrophils # (A) 2.3 k/uL (1.3-7.7); Neutrophils % (A) 43 %; Platelet Count 383 k/uL (150-450); RDW 13.4 % (11.5-15.5); WBC 5.5 k/uL (3.8-10.6)
[2019-05-30] MEDS: METOPROLOL TARTRATE 25 MG TAB PO SCH ×2 (08:23→21:49)
[2019-05-30] MEDS: MAGNESIUM OXIDE 400 MG TAB PO SCH ×3 (08:23→21:49)
[2019-05-30] MEDS: PREGABALIN 50 MG CAP PO SCH ×2 (08:23→21:49)
--- NOTE | 2019-05-30 11:41 | P.PN ---
Subjective Progress Note Date: 05/30/19 This is a 73-year-old female patient of Dr. Burton with past medical history of multilevel disc herniation C3-C4, C4-5 disc bulging and facet arthropathy C5 6 disc bulging and facet joint hypertrophy, C6 7 disc herniation multilevel canal stenosis. She has been under the care of pain management and underwent cervical epidural steroid injection C7-T1 on April [address] Vaz. Patient gives history that about 4 1/2 months ago she started having pain in her neck and then it gradually went into her thoracic area adjacent to the right arm until the thumb. At that initial time, her legs did not cause any problem she did not have any low back pain. She subsequently developed all over muscle a ches. She was admitted from our facility 04/29/2019, MRIs lumbar spine MRI cervical spine done at that time and was seen by Dr. Conway. She was arm prescribed prednisone to go home on, and outpatient physical therapy, was seen by Dr. Conway post hospital follow-up, and has recommended a neurologist to evaluate her for ongoing weakness of the arm and the lower extremities. Patient complains of weakness right arm, and weakness of the left lower leg is now chronic. Imaging studies during her last admission 04/29/2019 includedCAT scan of the lumbar spine showed advanced degenerative disc disease throughout as well as hypertrophic facet arthropathy and Baastrup's disease. Variable mild spinal canal stenosis due to posterior disc bulges. Variable neural foraminal stenosis severe at the left L5-S1. Bile duct dilated 1.1 cm probably secondary to postcholecystectomy status post patient age. Tiny hiatal hernia and sigmoid diverticulosis. MRI cervical spine 03/12/2019 C2-C3 small broad-based disc bulge without spinal stenosis C3-C4 left paracentral disc herniation mild spinal canal stenosis left, C4-C5 disc bulge with mild spinal canal stenosis left right neural foraminal narrowing C5-C6 facet arthropathy, severe left neural foraminal narrowing and mild right neural foraminal narrowing mild spinal canal stenosis C6-C7 disc bulge mild bilateral neural foraminal narrowing without spinal stenosis, C7-T1 central disc herniation, without spinal canal stenosis nor neural foraminal [employer] History of breath breast cancer 20 years ago with lumpectomy and radiation, fibromyalgia, gastroesophageal reflux disease, hypertension, hyperlipidemia, generalized osteoarthritis, pulmonary embolus 4 years ago on Xarelto, migraine headaches, irritable bowel syndrome, intermittent tobacco smoking, after quitting tobacco several years ago and daily alcohol intake. In the emergency room with her presentation of theright upper extremity left ower extremity weakness, patient has generalized myalgia and has difficulty in ambulating. Patient has fallen, and had fell on her buttocks, imaging studies ER, CAT scan of the brain mild atrophy no acute intracranial abnormality, no mass effect no midline shift. However chest x-ray shows something significant, masslike left midlung density is a change, new mediastinal adenopathy, density in the right paratracheal region could be mediastinal lymphadenopathy, no pleural effusion,bony thorax appears intact 3 cm masslike infiltrate left mid lung. CAT scan of the chest with IV contrast shows 3.3 x 4.4 x 3 cm spiculated mass lesion in the anterior inferior aspect of the left upper lobe compatible with neoplasm, anterior lateral aspect of this mass lesion has a pleural-based component, there is right pleural effusion and subsegmental atelectasis right lung base, paratracheal lymph node, fatty infiltration of liver, mild central intrahepatic and adnexa hepatic duct dilatation noted of unknown etiology, probable left adrenal adenoma. After the state patient does not have any left thoracic pain, no hemoptysis, no cough, no pleurisy, no weight loss, appetite is marginally okay,. Urinalysis shows gravity of 1.038, nitrite positive, urine WBC 182, urine RBC 111, lactic acid 2.6 elevated, liver function test is normal except AST 53 slightly elevated, troponin 0.012, CK 7.33 patient consult would be made with Dr. Newell, Dr. huizar and, IV antibiotic for presumed urinary tract infection, Dr. Kim for neurology, for upper and lower extremity weakness, MRI of the brain to be done. EMG would need to be process at as an outpatient 05/26: Patient has been seen by Dr. Hebert for known cervical and lumbar spondylosis with cervical and lumbar radicular symptoms. Lower extremities are especially weak proximally and may be confounded by myopathy possibly steroid induced given her recent history of intermittent steroid use. He recommends scanning central neural access to rule out [employer] metastasis. MRI of the brain reveals punctate 2 mm enhancement in the right cerebral hemisphere too small to characterize. Early metastasis is in the differential. Degenerative nonspecific white matter changes most typical remote microvascular ischemia. Faint enhancement of the right seventh/eighth cranial nerve complex. Tiny acoustic neuroma in the differential. MRI of the cervical spine reveals small central disc protrusion or small herniation at C7-T1 without spinal canal stenosis nor neural foraminal narrowing. Left paracentral disc herniation at C3-C4 with degenerative change creating mild to moderate left neural foraminal narrowing and mild spinal canal stenosis. Degenerative disc disease at C4-C5 C5-C6 with variable degrees of neural foraminal narrowing. No destructive changes seen. Marrow signal within osseous structures are stable. MRI of the thoracic spine reveals multilevel severe degenerative disc disease with multilevel disc small central herniations. Disc herniation at T6/T7 abuts with anterior margin of the spinal cord. Marrow signal is diffusely heterogeneous without evidence of discrete lesion or diagnostic evidence of metastasis, destructive lesion. Left upper lobe lung mass with mediastinal adenopathy suspicious for malignancy. Plan is for outpatient EMG to be done with Dr. Pardo. Lab work pending includes LDH ISO, protein electrophoresis, vitamin B12 is 1923, vitamin E. LD screen negative. Patient has also been seen by pulmonary medicine and plan is for outpatient PET scan and follow-up with Dr. Gallardo for results. Patient does complain of a cough. She states her nausea is controlled. Patient is continued on ceftriaxone. Patient has been afebrile, heart rate 87, blood pressure 115/75, pulse ox 96% on 2 L nasal cannula. White count is normalized to 6.7. Potassium 3.3 and will be replaced. Creatinine improved to 0.98. Liver function tests are improved with total bilirubin 0.6, AST 37, ALT 33, alkaline phosphatase 76, CK is improved at 389. TSH came back at 1.4. 05/27: Patient has been afebrile, heart rate 80, blood pressure 109/74, pulse ox 93% on 1 L nasal cannula. Vitamin B12 1923. Protein electrophoresis interpretation: With hypogammaglobulinemia, although not seen in the study, a few light chain paraprotein cannot be excluded. Patient was evaluated by Dr. Silke callaway and patient has been accepted at [facility] inpatient rehab awaiting insurance authorization. Patient's will set up appointment with Dr. Pardo for EMG testing. A prescription for PET scanning has been provided. Nursing to follow up with guarding PET scan scheduling if this can be done while she is at inpatient rehab. Insurance is requesting a peer to peer evaluation. 05/28: Patient has been afebrile, blood pressure 157/84, heart rate 75, pulse ox 95% on room air. Peritoneal air discussion regarding insurance authorization was done with Dr. Marino. Insurance authorization for subacute rehab has been obtained. Patient was continued go to [facility] but this has been denied by [facility]. If arrangements can be completed today, patient may be discharged either later today or tomorrow. Regarding PET scan, this will need to be canceled due to insurance payment issues. Patient is to follow-up with Dr. Gallardo as an outpatient. 05/30: Patient's pain is better controlled today with Percocet. Patient also has been resumed on Lyrica but at a dose of 50 mg twice daily. She states that she was on 25 mg twice daily for a while without improvement. She continues to have slightly more weakness on the right arm. Lower extremities are equal. Mental status is stable. Lab work reveals a CBC within normal limits. CO2 33, blood sugar 104, albumin 3.4. She has been afebrile, heart rate 82, blood pressure 116/74, pulse ox 92% on room air. Objective - Vital Signs Vital signs: Vital Signs Temp 97.5 F L 05/30/19 05:00 Pulse 82 05/30/19 05:00 Resp 16 05/30/19 05:00 BP 116/74 05/30/19 05:00 Pulse Ox 92 L 05/30/19 05:00 Intake & Output 05/29/19 05/30/19 05/30/19 18:59 06:59 18:59 Intake Total 1270 Output Total 250 Balance 1020 Intake: Intake, IV Titration 50 Amount cefTRIAXone 1 gm In 50 Sodium Chloride 0.9% 50 ml @ 100 mls/hr IVPB Q24HR [facility] Rx#:[id number] Oral 1220 Output: Urine 250 Other: Voiding Method Bedside Commode Bedside Commode Diaper Diaper # Voids 2 2 # Bowel Movements 1 - Exam Review of systenms Constitutional: Denies chills, Denies fever, Denies lethargy, Denies malaise, Denies poor appetite, Denies weakness, Denies weight loss Eyes: denies decreased vision, denies diplopia, denies discharge, denies pain Ears: deny: decreased hearing Ears, nose, mouth and throat: Denies dental pain, Denies headache, Denies nasal discharge, Denies nose pain Cardiovascular: Denies chest pain, Denies decreased exercise tolerance, Denies edema, Denies high blood pressure, Denies irregular heart beat, Denies palpitations, Denies paroxysmal nocturnal dyspnea, Denies rapid heart beat, Denies shortness of breath Respiratory: Denies congestion, Denies cough, Denies cough with sputum, Denies dyspnea, Denies home oxygen, Denies wheezing Gastrointestinal: Denies abdominal pain, Denies change in bowel habits, Denies coffee ground emesis, Denies early satiety, Denies excessive gas, Denies heartburn, Denies hematemesis, Denies hematochezia, Denies loss of appetite, D enies nausea, Denies vomiting Genitourinary: Denies dysuria, Denies flank pain, Denies kidney stones, Denies menorrhagia, Denies urgency, Denies urinary frequency Musculoskeletal: Denies gait dysfunction, Denies limitation of motion, endorses muscle pain and diffuse pain throughout body with generalized weakness Integumentary: Denies rash, Denies wounds, Denies brittle nails, Denies change in hair/nails, Denies darkening of skin Neurological: Reports balance difficulties, Denies change in speech, Denies double vision, Denies gait dysfunction, Denies loss of vision, reports motor disturbance, Denies numbness, Denies paralysis, Denies paresthesias, Denies seizures Psychiatric: Denies anxiety, Denies depression Endocrine: Denies excessive sweating, Denies excessive thirst, Denies high blood sugars, Denies palpitations Hematologic/Lymphatic: Denies easy bruising, Denies lymphadenopathy - Constitutional General appearance: cooperative, no acute distress, obese, resting on the edge of the bed - EENT Eyes: anicteric sclerae, PERRLA, normal appearance ENT: hearing grossly normal - Neck Neck: no lymphadenopathy, normal ROM, no other, no rigidity, no stridor, no thyromegaly - Respiratory Respiratory: bilateral: CTA, negative: diminished, dullness, rales, rhonchi - Cardiovascular Rhythm: regular Heart sounds: normal: S1, S2 Abnormal Heart Sounds: no systolic murmur, no diastolic murmur, no rub, no S3 Gallop, no S4 Gallop, no click, no other - Gastrointestinal General gastrointestinal: normal bowel sounds, soft - Integumentary Integumentary: no rash - Neurologic Neurologic: CNII-XII intact - Musculoskeletal Musculoskeletal: Generalized weakness weakness more pronounced in the lower extremity compared to upper extremity - Psychiatric Psychiatric: A&O x's 3, appropriate affect - Labs CBC & Chem 7: 05/30/19 06:52 05/30/19 06:52 Labs: Abnormal Lab Results - Last 24 Hours (Table) 05/30/19 Range/Units 06:52 Carbon Dioxide 33 H (22-30) mmol/L Glucose 104 H (74-99) mg/dL Total Protein 5.9 L (6.3-8.2) g/dL Albumin 3.4 L (3.5-5.0) g/dL Assessment and Plan Plan: 1. Acute urinary tract infection, patient is started on IV Rocephin, cultures are sent, IV hydration. Urine culture remains pending. 2. Lung mass, spiculated left mid lung lobe, 3.3 x 4.4 cm new, patient was seen by Dr. Huizar, and Dr. Newell, patient would need to be biopsied for this lung mass, tobacco cessation was requested to be done permanently, outpatient PET scan canceled due to insurance coverage issues. Bronchoscopy and biopsy to be done on Friday. Xarelto on hold. 3. Weakness upper extremity right side, weakness lower extremity left side, MRI of the brain to be done and MRI of the cervical spine and thoracic spine as above added by Dr. Hebert, patient would have an EMG to be done as an outpatient, was set up to see Dr. Pardo as an outpatient 4. Degenerative disc disease of lumbar spine and stenosis most severe at the left L5-S1. Multilevel disc herniation of the cervical spine status post cervical epidural steroid injection C7-T1 on April [address] Vaz, pain management. Continue Lyrica 25 mg twice daily. Patient has seen Dr. Conway and outpatient, no surgical intervention recommended, he requested a neurologist to see the patient, EMG of the upper extremity to be done, MRI of the brain to evaluate for brain metastases as well as noted degenerative disease of the brain 5. History of breast cancer 20 years ago status post lumpectomy and radiation, stable. 6. Hypertension. Continue lisinopril 10 mg at bedtime, Lopressor 25 mg twice daily. 7. Hyperlipidemia. Continue atorvastatin 10 mg at bedtime. 8. History of pulmonary embolus 4 years ago on Xarelto. 9. Fibromyalgia. Continue current pain management. 10. Migraine headaches, stable. 11. Irritable bowel syndrome. Continue Lomotil as needed. 12. Recurrent depression. Continue Cymbalta 60 mg at bedtime, trazodone 50 mg at bedtime. 13. Remote history of tobacco use and dependence. 14. Daily alcohol use. No history of seizure activity. Monitor for DTs. 15. DVT prophylaxis. Xarelto 16. GI prophylaxis and gastroesophageal reflux disease. Protonix. Discharge plan: Insurance authorization for subacute rehab has been obtained. Awaiting ECF acceptance. Impression and plan of care have been directed as dictated by the signing physician. Tia Harley nurse practitioner acting as scribe for signing physician.
[2019-05-30] MEDS: CHOLECALCIFEROL 1,000 UNIT TAB PO SCH (21:49)
[2019-05-30] MEDS: DULoxetine HCL 60 MG CAPSULE.DR PO SCH (21:49)
[2019-05-30] MEDS: PANTOPRAZOLE 40 MG TABLET PO SCH (21:49)
[2019-05-30] MEDS: CYANOCOBALAMIN-FA-PYRIDOXINE 1 EACH TAB PO SCH (21:50)
[2019-05-30] MEDS: ATORVASTATIN 10 MG TAB PO SCH (21:50)
[2019-05-31] MEDS: oxyCODONE-APAP 5-325MG 1 EACH TAB PO PRN ×4 (01:01→23:56)
[2019-05-31] MEDS: MAGNESIUM OXIDE 400 MG TAB PO SCH ×3 (07:08→21:09)
[2019-05-31] MEDS: PREGABALIN 50 MG CAP PO SCH ×2 (07:08→21:09)
[2019-05-31] MEDS: METOPROLOL TARTRATE 25 MG TAB PO SCH ×2 (07:08→21:09)
[2019-05-31] MEDS: MORPHINE SULFATE 4 MG/ML SYRINGE IV PRN ×4 (09:29→22:36)
[2019-05-31 10:51] VITALS: BMI 29.0
--- NOTE | 2019-05-31 17:28 | P.PN ---
Subjective Progress Note Date: 05/31/19 his is a 73-year-old female patient of Dr. Burton with past medical history of multilevel disc herniation C3-C4, C4-5 disc bulging and facet arthropathy C5 6 disc bulging and facet joint hypertrophy, C6 7 disc herniation multilevel canal stenosis. She has been under the care of pain management and underwent cervical epidural steroid injection C7-T1 on April [address] Vaz. Patient gives history that about 4 1/2 months ago she started having pain in her neck and then it gradually went into her thoracic area adjacent to the right arm until the thumb. At that initial time, her legs did not cause any problem she did not have any low back pain. She subsequently developed all over muscle ac hes. She was admitted from our facility 04/29/2019, MRIs lumbar spine MRI cervical spine done at that time and was seen by Dr. Conway. She was arm prescribed prednisone to go home on, and outpatient physical therapy, was seen by Dr. Conway post hospital follow-up, and has recommended a neurologist to evaluate her for ongoing weakness of the arm and the lower extremities. Patient complains of weakness right arm, and weakness of the left lower leg is now chronic. Imaging studies during her last admission 04/29/2019 includedCAT scan of the lumbar spine showed advanced degenerative disc disease throughout as well as hypertrophic facet arthropathy and Baastrup's disease. Variable mild spinal canal stenosis due to posterior disc bulges. Variable neural foraminal stenosis severe at the left L5-S1. Bile duct dilated 1.1 cm probably secondary to postcholecystectomy status post patient age. Tiny hiatal hernia and sigmoid diverticulosis. MRI cervical spine 03/12/2019 C2-C3 small broad-based disc bulge without spinal stenosis C3-C4 left paracentral disc herniation mild spinal canal stenosis left, C4-C5 disc bulge with mild spinal canal stenosis left right neural foraminal narrowing C5-C6 facet arthropathy, severe left neural foraminal narrowing and mild right neural foraminal narrowing mild spinal canal stenosis C6-C7 disc bulge mild bilateral neural foraminal narrowing without spinal stenosis, C7-T1 central disc herniation, without spinal canal stenosis nor neural foraminal narr owing History of breath breast cancer 20 years ago with lumpectomy and radiation, fibromyalgia, gastroesophageal reflux disease, hypertension, hyperlipidemia, generalized osteoarthritis, pulmonary embolus 4 years ago on Xarelto, migraine headaches, irritable bowel syndrome, intermittent tobacco smoking, after quitting tobacco several years ago and daily alcohol intake. In the emergency room with her presentation of theright upper extremity left ower extremity weakness, patient has generalized myalgia and has difficulty in ambulating. Patient has fallen, and had fell on her buttocks, imaging studies ER, CAT scan of the brain mild atrophy no acute intracranial abnormality, no mass effect no midline shift. However chest x-ray shows something significant, masslike left midlung density is a change, new mediastinal adenopathy, density in the right paratracheal region could be mediastinal lymphadenopathy, no pleural effusion,bony thorax appears intact 3 cm masslike infiltrate left mid lung. CAT scan of the chest with IV contrast shows 3.3 x 4.4 x 3 cm spiculated mass lesion in the anterior inferior aspect of the left upper lobe compatible with neoplasm, anterior lateral aspect of this mass lesion has a pleural-based component, there is right pleural effusion and subsegmental atelectasis right lung base, paratracheal lymph node, fatty infiltration of liver, mild central intrahepatic and adnexa hepatic duct dilatation noted of unknown etiology, probable left adrenal adenoma. After the state patient does not have any left thoracic pain, no hemoptysis, no cough, no pleurisy, no weight loss, appetite is marginally okay,. Urinalysis shows gravity of 1.038, nitrite positive, urine WBC 182, urine RBC 111, lactic acid 2.6 elevated, liver function test is normal except AST 53 slightly elevated, troponin 0.012, CK 7.33 patient consult would be made with Dr. Newell, Dr. huizar and, IV antibiotic for presumed urinary tract infection, Dr. Kim for neurology, for upper and lower extremity weakness, MRI of the brain to be done. EMG would need to be process at as an outpatient 05/26: Patient has been seen by Dr. Hebert for known cervical and lumbar spondylosis with cervical and lumbar radicular symptoms. Lower extremities are especially weak proximally and may be confounded by myopathy possibly steroid induced given her recent history of intermittent steroid use. He recommends scanning central neural access to rule out [employer] metastasis. MRI of the brain reveals punctate 2 mm enhancement in the right cerebral hemisphere too small to characterize. Early metastasis is in the differential. Degenerative nonspecific white matter changes most typical remote microvascular ischemia. Faint enhancement of the right seventh/eighth cranial nerve complex. Tiny acoustic neuroma in the differential. MRI of the cervical spine reveals small central disc protrusion or small herniation at C7-T1 without spinal canal stenosis nor neural foraminal narrowing. Left paracentral disc herniation at C3-C4 with degenerative change creating mild to moderate left neural foraminal narrowing and mild spinal canal stenosis. Degenerative disc disease at C4-C5 C5-C6 with variable degrees of neural foraminal narrowing. No destructive changes seen. Marrow signal within osseous structures are stable. MRI of the thoracic spine reveals multilevel severe degenerative disc disease with multilevel disc small central herniations. Disc herniation at T6/T7 abuts with anterior margin of the spinal cord. Marrow signal is diffusely heterogeneous without evidence of discrete lesion or diagnostic evidence of metastasis, destructive lesion. Left upper lobe lung mass with mediastinal adenopathy suspicious for malignancy. Plan is for outpatient EMG to be done with Dr. Pardo. Lab work pending includes LDH ISO, protein electrophoresis, vitamin B12 is 1923, vitamin E. LD screen negative. Patient has also been seen by pulmonary medicine and plan is for outpatient PET scan and follow-up with Dr. Gallardo for results. Patient does complain of a cough. She states her nausea is controlled. Patient is continued on ceftriaxone. Patient has been afebrile, heart rate 87, blood pressure 115/75, pulse ox 96% on 2 L nasal cannula. White count is normalized to 6.7. Potassium 3.3 and will be replaced. Creatinine improved to 0.98. Liver function tests are improved with total bilirubin 0.6, AST 37, ALT 33, alkaline phosphatase 76, CK is improved at 389. TSH came back at 1.4. 05/27: Patient has been afebrile, heart rate 80, blood pressure 109/74, pulse ox 93% on 1 L nasal cannula. Vitamin B12 1923. Protein electrophoresis interpretation: With hypogammaglobulinemia, although not seen in the study, a few light chain paraprotein cannot be excluded. Patient was evaluated by Dr. Malcolm tidwell and patient has been accepted at [facility] inpatient rehab awaiting insurance authorization. Patient's will set up appointment with Dr. Pardo for EMG testing. A prescription for PET scanning has been provided. Nursing to follow up with guarding PET scan scheduling if this can be done while she is at inpatient rehab. Insurance is requesting a peer to peer evaluation. 05/28: Patient has been afebrile, blood pressure 157/84, heart rate 75, pulse ox 95% on room air. Peritoneal air discussion regarding insurance authorization was done with Dr. Marino. Insurance authorization for subacute rehab has been obtained. Patient was continued go to [facility] but this has been denied by [facility]. [facility] is now evaluating the patient. If arrangements can be completed today, patient may be discharged either later today or tomorrow. Regarding PET scan, this will need to be canceled due to insurance payment issues. Patient is to follow-up with Dr. Gallardo as an outpatient. 05/29 patient examined bedside. Discharge was held for concern of paraproteinemia and and paraneoplastic syndrome concerns. Patient complains of pain throughout her body likely muscular than joint pains. She feels a pressure-like sensation mostly in her muscles. Patient does take Lyrica at home and 25 twice a day but is currently not on Lyrica. Will restart patient on Lyrica 50 mg twice a day along with Cymbalta as well as [place]. Patient states not was not helping with the pain and is currently taking IV morphine every 6 hours to help relieve the pain. On evaluation of the vitals today patient has a temp 97.7 pulse 79 pressure 1 from 119/78 saturating at room air 94%. Xarelto held. 05/30: Patient's pain is better controlled today with Percocet. Patient also has been resumed on Lyrica but at a dose of 50 mg twice daily. She states that she was on 25 mg twice daily for a while without improvement. She continues to have slightly more weakness on the right arm. Lower extremities are equal. Mental status is stable. Lab work reveals a CBC within normal limits. CO2 33, blood sugar 104, albumin 3.4. She has been afebrile, heart rate 82, blood pressure 116/74, pulse ox 92% on room air. 05/31 patient's pain is the same as yesterday. Complains of pain despite B: Percocet and Lyrica and Cymbalta. Vitals are stable. Plan for bronchoscopy tomorrow Xarelto held Objective - Vital Signs Vital signs: Vital Signs Temp 97.8 F 05/31/19 13:00 Pulse 83 05/31/19 13:00 Resp 17 05/31/19 13:00 BP 119/72 05/31/19 13:00 Pulse Ox 97 05/31/19 13:00 Intake & Output 05/30/19 05/31/19 05/31/19 18:59 06:59 18:59 Intake Total 360 590 50 Output Total 250 250 Balance 110 590 -200 Weight 81.647 kg Intake: Intake, IV Titration 50 Amount cefTRIAXone 1 gm In 50 Sodium Chloride 0.9% 50 ml @ 100 mls/hr IVPB Q24HR [facility] Rx#:[id number] Oral 360 590 Output: Urine 250 250 Other: Voiding Method Bedside Commode Bedside Commode Bedside Commode Diaper Diaper # Voids 2 2 1 - Labs CBC & Chem 7: 05/30/19 06:52 05/30/19 06:52 Assessment and Plan Plan: 1. Acute urinary tract infection, patient is started on IV Rocephin, cultures are sent, IV hydration. Urine culture remains pending. 2. Lung mass, spiculated left mid lung lobe, 3.3 x 4.4 cm new, patient was seen by Dr. Huizar, and Dr. Newell, patient would need to be biopsied for this lung mass, tobacco cessation was requested to be done permanently, outpatient PET scan canceled due to insurance coverage issues bronchoscopy scheduled for his 06/01 3. Weakness upper extremity right side, weakness lower extremity left side, MRI of the brain to be done and MRI of the cervical spine and thoracic spine as above added by Dr. Hebert, patient would have an EMG to be done as an outpatient, was set up to see Dr. Pardo as an outpatient 4. Degenerative disc disease of lumbar spine and stenosis most severe at the left L5-S1. Multilevel disc herniation of the cervical spine status post cervical epidural steroid injection C7-T1 on April [address] Vaz, pain management. Patient has seen Dr. Conway and outpatient, no surgical intervention recommended, he requested a neurologist to see the patient, EMG of the upper extremity to be done, MRI of the brain to evaluate for brain metastases as well as noted degenerative disease of the brain 5. History of breast cancer 20 years ago status post lumpectomy and radiation, stable. 6. Hypertension. Continue lisinopril 10 mg at bedtime, Lopressor 25 mg twice daily. 7. Hyperlipidemia. Continue atorvastatin 10 mg at bedtime. 8. History of pulmonary embolus 4 years ago on Xarelto. 9. Fibromyalgia. Continue current pain management. Continue Cymbalta trazodone addition of Lyrica 50 twice a day continue [place] at 7.5 every 6 with IV morphine 10. Migraine headaches, stable. 11. Irritable bowel syndrome. Continue Lomotil as needed. 12. Recurrent depression. Continue Cymbalta 60 mg at bedtime, trazodone 50 mg at bedtime. 13. Remote history of tobacco use and dependence. 14. Daily alcohol use. No history of seizure activity. Monitor for DTs. 15. DVT prophylaxis. Xarelto 16. GI prophylaxis and gastroesophageal reflux disease. Protonix. Discharge plan: Patient to stay 29/3 to stay for bronchoscopy
[2019-05-31] MEDS: CHOLECALCIFEROL 1,000 UNIT TAB PO SCH (21:09)
[2019-05-31] MEDS: PANTOPRAZOLE 40 MG TABLET PO SCH (21:09)
[2019-05-31] MEDS: ATORVASTATIN 10 MG TAB PO SCH (21:09)
[2019-05-31] MEDS: DULoxetine HCL 60 MG CAPSULE.DR PO SCH (21:09)
[2019-05-31] MEDS: CYANOCOBALAMIN-FA-PYRIDOXINE 1 EACH TAB PO SCH (21:10)
[2019-06-01] MEDS: MORPHINE SULFATE 4 MG/ML SYRINGE IV PRN ×2 (03:52→16:41)
[2019-06-01] MEDS: oxyCODONE-APAP 5-325MG 1 EACH TAB PO PRN ×3 (06:04→20:38)
[2019-06-01] MEDS: PREGABALIN 50 MG CAP PO SCH ×2 (08:31→22:21)
[2019-06-01] MEDS: METOPROLOL TARTRATE 25 MG TAB PO SCH ×2 (08:31→22:20)
[2019-06-01] MEDS: MAGNESIUM OXIDE 400 MG TAB PO SCH ×3 (08:31→22:21)
[2019-06-01] MEDS ORDERED: GLYCOPYRROLATE 0.2 MG/ML 2 ML VIAL ONE (11:45)
[2019-06-01] MEDS ORDERED: PROPOFOL 10 MG/ML 20 ML VIAL IV ONE (11:45)
[2019-06-01] MEDS ORDERED: LIDOCAINE 1% INJ 10MG/ML (20 ML MDV) ONE (11:45)
[2019-06-01] MEDS ORDERED: KETAMINE 10 MG/ML 20 ML VIAL ONE (11:45)
[2019-06-01] MEDS ORDERED: SODIUM CHLORIDE 0.9% 500 ML 500 ML IV ONE (12:38)
--- NOTE | 2019-06-01 13:03 | P.PN ---
Subjective Progress Note Date: 06/01/19 This is a 71-year-old female patient who came in to the hospital because of a back pain, inability to walk, and urinary tract infection. The patient is known to have multilevel disc herniation at the level of C3-C4, C4-C5 along with a disc bulge and facet arthropathy at the level of C5-C6 disc bulging and facet joint hypertrophy, C6 7 disc herniation multilevel canal stenosis. She has been under the care of pain management and underwent cervical epidural steroid injection C7-T1 on April [address] Vaz. Patient gives history that about 4 1/2 months ago she started having pain in her neck and then it gradually went into her thoracic area adjacent to the right arm until the thumb. At that initial time, her legs did not cause any problem she did not have any low back pain. She subsequently developed all over muscle aches. She was admitted from our facility 04/29/2019, MRIs lumbar spine MRI cervical spine done at that time and was seen by Dr. Conway. She was arm prescribed prednisone to go home on, and outpatient physical therapy, was seen by Dr. Conway post hospital follow-up, and has recommended a neurologist to evaluate her for ongoing weakness of the arm and the lower extremities. Patient complains of weakness right arm, and weakness of the left lower leg is now chronic. Imaging studies during her last admission 04/29/2019 includedCAT scan of the lumbar spine showed advanced d egenerative disc disease throughout as well as hypertrophic facet arthropathy and Baastrup's disease. Variable mild spinal canal stenosis due to posterior disc bulges. Variable neural foraminal stenosis severe at the left L5-S1. Bile duct dilated 1.1 cm probably secondary to postcholecystectomy status post patient age. Tiny hiatal hernia and sigmoid diverticulosis. MRI cervical spine 03/12/2019 C2-C3 small broad-based disc bulge without spinal stenosis C3-C4 left paracentral disc herniation mild spinal canal stenosis left, C4-C5 disc bulge with mild spinal canal stenosis left right neural foraminal narrowing C5-C6 facet arthropathy, severe left neural foraminal narrowing and mild right neural foraminal narrowing mild spinal canal stenosis C6-C7 disc bulge mild bilateral neural foraminal narrowing without spinal stenosis, C7-T1 central disc herniation, without spinal canal stenosis nor neural foraminal narrowing. She also has a previous history of breast cancer 20 years ago with lumpectomy and radiation, fibromyalgia, gastroesophageal reflux disease, hypertension, hyperlipidemia, generalized osteoarthritis, pulmonary embolus 4 years ago on Xarelto, migraine headaches, irritable bowel syndrome, intermittent tobacco smoking, after quitting tobacco several years ago and daily alcohol intake. CAT scan of the brain mild atrophy no acute intracranial abnormality, no mass effect no midline shift. However chest x-ray shows something significant, masslike left midlung density is a change, new mediastinal adenopathy, density in the right paratracheal region could be mediastinal lymphadenopathy, no pleural effusion,bony thorax appears intact 3 cm masslike infiltrate left mid lung. CAT scan of the chest with IV contrast shows 3.3 x 4.4 x 3 cm spiculated mass lesion in the anterior inferior aspect of the left upper lobe compatible with neoplasm, anterior lateral aspect of this mass lesion has a pleural-based component, there is right pleural effusion and subsegmental atelectasis right lung base, paratracheal lymph node, fatty infiltration of liver, mild central intrahepatic and adnexa hepatic duct dilatation noted of unknown etiology, probable left adrenal adenoma. This morning, the patient is off anticoagulation. She's been off antibiotic ventilation for the past 48 hours. The patient is nothing by mouth and the patient will be having a bronchoscopy for a diagnosis regarding her lung findings. There is a high suspicion for underlying lung cancer. She has no other complaints she is awake and alert pH is following commands and answering questions appropriately. Her white cell count is at 5.5 with a hemoglobin of 13.0. Creatinine is within normal limits. Objective - Vital Signs Vital signs: Vital Signs Temp 97.4 F L 06/01/19 12:14 Pulse 89 06/01/19 12:14 Resp 18 06/01/19 12:14 BP 115/75 06/01/19 12:14 Pulse Ox 93 L 06/01/19 12:14 Intake & Output 05/31/19 06/01/19 06/01/19 18:59 06:59 18:59 Intake Total 50 200 200 Output Total 250 Balance -200 200 200 Weight 81.647 kg Intake: IV 200 Intake, IV Titration 50 Amount cefTRIAXone 1 gm In 50 Sodium Chloride 0.9% 50 ml @ 100 mls/hr IVPB Q24HR [facility] Rx#:[id number] Oral 200 Output: Urine 250 Other: Voiding Method Bedside Commode Bedside Commode Bedside Commode Diaper Diaper Incontinent Incontinent # Voids 1 1 - Exam Constitutional: Denies chills, Denies fever, Denies lethargy, Denies malaise, Denies poor appetite, Denies weakness, Denies weight loss Eyes: denies decreased vision, denies diplopia, denies discharge, denies pain Ears: deny: decreased hearing Ears, nose, mouth and throat: Denies dental pain, Denies headache, Denies nasal discharge, Denies nose pain Cardiovascular: Denies chest pain, Denies decreased exercise tolerance, Denies edema, Denies high blood pressure, Denies irregular heart beat, Denies palpitations, Denies paroxysmal nocturnal dyspnea, Denies rapid heart beat, Denies shortness of breath Respiratory: Denies congestion, Denies cough, Denies cough with sputum, Denies dyspnea, Denies home oxygen, Denies wheezing Gastrointestinal: Denies abdominal pain, Denies change in bowel habits, Denies coffee ground emesis, Denies early satiety, Denies excessive gas, Denies heartburn, Denies hematemesis, Denies hematochezia, Denies loss of appetite, Denies nausea, Denies vomiting Genitourinary: Denies dysuria, Denies flank pain, Denies kidney stones, Denies menorrhagia, Denies urgency, Denies urinary frequency Musculoskeletal: Denies gait dysfunction, Denies limitation of motion, endorses muscle pain and diffuse pain throughout body with generalized weakness Integumentary: Denies rash, Denies wounds, Denies brittle nails, Denies change in hair/nails, Denies darkening of skin Neurological: Reports balance difficulties, Denies change in speech, Denies double vision, Denies gait dysfunction, Denies loss of vision, reports motor dis turbance, Denies numbness, Denies paralysis, Denies paresthesias, Denies seizures Psychiatric: Denies anxiety, Denies depression Endocrine: Denies excessive sweating, Denies excessive thirst, Denies high blood sugars, Denies palpitations Hematologic/Lymphatic: Denies easy bruising, Denies lymphadenopathy - Labs CBC & Chem 7: 05/30/19 06:52 05/30/19 06:52 Assessment and Plan Plan: 1. Acute urinary tract infection, treated with IV Rocephin 2. Lung mass, spiculated left mid lung lobe, 3.3 x 4.4 along with mediastinal lymphadenopathy and a high suspicion for underlying malignancy. The patient is going to undergo a bronchoscopy this afternoon. 3. Significant mobility and gait and the patient has not walked for the past 4- 1/2 months. 4. Degenerative disc disease of lumbar spine and stenosis most severe at the left L5-S1. Multilevel disc herniation of the cervical spine status post cervical epidural steroid injection C7-T1 on April [address] Vaz, pain management. Continue Lyrica 25 mg twice daily. Patient has seen Dr. Conway and outpatient, no surgical intervention recommended, he requested a neurologist to see the patient, EMG of the upper extremity to be done, MRI of the brain to evaluate for brain metastases as well as noted degenerative disease of the brain 5. History of breast cancer 20 years ago status post lumpectomy and radiation, stable. 6. Hypertension. 7. Hyperlipidemia. 8. History of pulmonary embolus 4 years ago on Xarelto. Currently off anticoagulation pending bronchoscopy 9. Fibromyalgia. Continue current pain management. 10. Migraine headaches, stable. 11. Irritable bowel syndrome. 12. depression. 13. Remote history of tobacco use and dependence. 14. Daily alcohol use. Plan Proceed with bronchoscopy and further recommendations to follow based on the findings. The patient is agreeable. Procedure was explained. The patient is on Xarelto for the past 48 hours. We'll proceed accordingly.
--- NOTE | 2019-06-01 13:08 | P.PCN ---
Date of Procedure: 06/01/19 Preoperative Diagnosis: left upper lobe mass and medistinal adenopathy Postoperative Diagnosis: Left upper lobe mass and medistinal adenopathy Procedure(s) Performed: Flexible bronchoscopy, transbronchial needle aspirate of right paratracheal lymph node, transbronchial needle aspirate and endobronchial biopsy of the left upper lobe endobronchial irregularities Anesthesia: MAC Surgeon: Javier Hopkins Estimated Blood Loss (ml): 10 Pathology: other Condition: stable Disposition: floor Operative Findings: This procedure was done in the endoscopy suite. The patient is been offered evaluation for the past 2 days. After achieving adequate sedation the flexible bronchoscope was inserted through right nostril was advanced upper airway. Examination of the posterior oropharynx, larynx, epiglottis and vocal cords was done and all of the upper airway structures were within normal limits. A total of 2 mL of 1% lidocaine was applied to the vocal cords and following that the bronchoscope was advanced into the upper trachea and examination of the tracheal bronchial tree with him. Trachea was within normal limits. Examination of the right mainstem bronchus right upper lobe bronchus right lower lobe bronchus lungs various segments and subsegments were all within normal limits. Left mainstem bronchus was within normal. The jd from the left upper lobe and the left lower lobe was abnormal swallowing and irregular and friable and vascular. Similarly, there was endobronchial irregularities at the origin of the left upper lobe bronchus that was highly suspicious for malignancy. Left lower lobe bronchus was patent and within normal limits and the various segments were also seen and visualized. At this point, transbronchial needle aspirate of the endobronchial abnormalities of the left upper lobe at the origin of the left upper was done and I used a 19-gauge cytology didn't 21-gauge histology either. Transbronchial needle aspirate of the right paratracheal lymph node was done using a 19-gauge cytology needle. Endobronchial biopsies of the left upper lobe irregularities were also done under direct visualization. Note that the left upper lobe was quite friable and it did create some endobronchial bleeding following the biopsy. Therapeutic airway suctioning was done. At the completion of the procedure, therapeutic airway suctioning was done and all of the blood and secretions were suctioned noted adequate. The procedure completed without any complications and the patient will chest or back to his room and further recommendations are to follow based on the findings.
--- NOTE | 2019-06-01 14:35 | P.PN ---
Subjective Progress Note Date: 06/01/19 This is a 73-year-old female patient of Dr. Burton with past medical history of multilevel disc herniation C3-C4, C4-5 disc bulging and facet arthropathy C5 6 disc bulging and facet joint hypertrophy, C6 7 disc herniation multilevel canal stenosis. She has been under the care of pain management and underwent cervical epidural steroid injection C7-T1 on April [address] Vaz. Patient gives history that about 4 1/2 months ago she started having pain in her neck and then it gradually went into her thoracic area adjacent to the right arm until the thumb. At that initial time, her legs did not cause any problem she did not have any low back pain. She subsequently developed all over muscle a ches. She was admitted from our facility 04/29/2019, MRIs lumbar spine MRI cervical spine done at that time and was seen by Dr. Conway. She was arm prescribed prednisone to go home on, and outpatient physical therapy, was seen by Dr. Conway post hospital follow-up, and has recommended a neurologist to evaluate her for ongoing weakness of the arm and the lower extremities. Patient complains of weakness right arm, and weakness of the left lower leg is now chronic. Imaging studies during her last admission 04/29/2019 includedCAT scan of the lumbar spine showed advanced degenerative disc disease throughout as well as hypertrophic facet arthropathy and Baastrup's disease. Variable mild spinal canal stenosis due to posterior disc bulges. Variable neural foraminal stenosis severe at the left L5-S1. Bile duct dilated 1.1 cm probably secondary to postcholecystectomy status post patient age. Tiny hiatal hernia and sigmoid diverticulosis. MRI cervical spine 03/12/2019 C2-C3 small broad-based disc bulge without spinal stenosis C3-C4 left paracentral disc herniation mild spinal canal stenosis left, C4-C5 disc bulge with mild spinal canal stenosis left right neural foraminal narrowing C5-C6 facet arthropathy, severe left neural foraminal narrowing and mild right neural foraminal narrowing mild spinal canal stenosis C6-C7 disc bulge mild bilateral neural foraminal narrowing without spinal stenosis, C7-T1 central disc herniation, without spinal canal stenosis nor neural foraminal [employer] History of breath breast cancer 20 years ago with lumpectomy and radiation, fibromyalgia, gastroesophageal reflux disease, hypertension, hyperlipidemia, generalized osteoarthritis, pulmonary embolus 4 years ago on Xarelto, migraine headaches, irritable bowel syndrome, intermittent tobacco smoking, after quitting tobacco several years ago and daily alcohol intake. In the emergency room with her presentation of theright upper extremity left ower extremity weakness, patient has generalized myalgia and has difficulty in ambulating. Patient has fallen, and had fell on her buttocks, imaging studies ER, CAT scan of the brain mild atrophy no acute intracranial abnormality, no mass effect no midline shift. However chest x-ray shows something significant, masslike left midlung density is a change, new mediastinal adenopathy, density in the right paratracheal region could be mediastinal lymphadenopathy, no pleural effusion,bony thorax appears intact 3 cm masslike infiltrate left mid lung. CAT scan of the chest with IV contrast shows 3.3 x 4.4 x 3 cm spiculated mass lesion in the anterior inferior aspect of the left upper lobe compatible with neoplasm, anterior lateral aspect of this mass lesion has a pleural-based component, there is right pleural effusion and subsegmental atelectasis right lung base, paratracheal lymph node, fatty infiltration of liver, mild central intrahepatic and adnexa hepatic duct dilatation noted of unknown etiology, probable left adrenal adenoma. After the state patient does not have any left thoracic pain, no hemoptysis, no cough, no pleurisy, no weight loss, appetite is marginally okay,. Urinalysis shows gravity of 1.038, nitrite positive, urine WBC 182, urine RBC 111, lactic acid 2.6 elevated, liver function test is normal except AST 53 slightly elevated, troponin 0.012, CK 7.33 patient consult would be made with Dr. Newell, Dr. huizar and, IV antibiotic for presumed urinary tract infection, Dr. Kim for neurology, for upper and lower extremity weakness, MRI of the brain to be done. EMG would need to be process at as an outpatient 05/26: Patient has been seen by Dr. Hebert for known cervical and lumbar spondylosis with cervical and lumbar radicular symptoms. Lower extremities are especially weak proximally and may be confounded by myopathy possibly steroid induced given her recent history of intermittent steroid use. He recommends scanning central neural access to rule out [employer] metastasis. MRI of the brain reveals punctate 2 mm enhancement in the right cerebral hemisphere too small to characterize. Early metastasis is in the differential. Degenerative nonspecific white matter changes most typical remote microvascular ischemia. Faint enhancement of the right seventh/eighth cranial nerve complex. Tiny acoustic neuroma in the differential. MRI of the cervical spine reveals small central disc protrusion or small herniation at C7-T1 without spinal canal stenosis nor neural foraminal narrowing. Left paracentral disc herniation at C3-C4 with degenerative change creating mild to moderate left neural foraminal narrowing and mild spinal canal stenosis. Degenerative disc disease at C4-C5 C5-C6 with variable degrees of neural foraminal narrowing. No destructive changes seen. Marrow signal within osseous structures are stable. MRI of the thoracic spine reveals multilevel severe degenerative disc disease with multilevel disc small central herniations. Disc herniation at T6/T7 abuts with anterior margin of the spinal cord. Marrow signal is diffusely heterogeneous without evidence of discrete lesion or diagnostic evidence of metastasis, destructive lesion. Left upper lobe lung mass with mediastinal adenopathy suspicious for malignancy. Plan is for outpatient EMG to be done with Dr. Pardo. Lab work pending includes LDH ISO, protein electrophoresis, vitamin B12 is 1923, vitamin E. LD screen negative. Patient has also been seen by pulmonary medicine and plan is for outpatient PET scan and follow-up with Dr. Gallardo for results. Patient does complain of a cough. She states her nausea is controlled. Patient is continued on ceftriaxone. Patient has been afebrile, heart rate 87, blood pressure 115/75, pulse ox 96% on 2 L nasal cannula. White count is normalized to 6.7. Potassium 3.3 and will be replaced. Creatinine improved to 0.98. Liver function tests are improved with total bilirubin 0.6, AST 37, ALT 33, alkaline phosphatase 76, CK is improved at 389. TSH came back at 1.4. 05/27: Patient has been afebrile, heart rate 80, blood pressure 109/74, pulse ox 93% on 1 L nasal cannula. Vitamin B12 1923. Protein electrophoresis interpretation: With hypogammaglobulinemia, although not seen in the study, a few light chain paraprotein cannot be excluded. Patient was evaluated by Dr. Silke callaway and patient has been accepted at [facility] inpatient rehab awaiting insurance authorization. Patient's will set up appointment with Dr. Pardo for EMG testing. A prescription for PET scanning has been provided. Nursing to follow up with guarding PET scan scheduling if this can be done while she is at inpatient rehab. Insurance is requesting a peer to peer evaluation. 05/28: Patient has been afebrile, blood pressure 157/84, heart rate 75, pulse ox 95% on room air. Peritoneal air discussion regarding insurance authorization was done with Dr. Marino. Insurance authorization for subacute rehab has been obtained. Patient was continued go to [facility] but this has been denied by [facility]. [facility] is now evaluating the patient. If arrangements can be completed today, patient may be discharged either later today or tomorrow. Regarding PET scan, this will need to be canceled due to insurance payment issues. Patient is to follow-up with Dr. Gallardo as an outpatient. 05/30: Patient's pain is better controlled today with Percocet. Patient also has been resumed on Lyrica but at a dose of 50 mg twice daily. She states that she was on 25 mg twice daily for a while without improvement. She continues to have slightly more weakness on the right arm. Lower extremities are equal. Mental status is stable. Lab work reveals a CBC within normal limits. CO2 33, blood sugar 104, albumin 3.4. She has been afebrile, heart rate 82, blood pressure 116/74, pulse ox 92% on room air. 05/31 patient's pain is the same as yesterday. Complains of pain despite B: Percocet and Lyrica and Cymbalta. Vitals are stable. Plan for bronchoscopy tomorrow Anthony held 06/01: The patient states the pain is still a #5 out of 10. She has been afebrile, heart rate 89, blood pressure 115/75, pulse ox 93% on room air. This afternoon, patient underwent bronchoscopy, transbronchial needle aspirate of the right paratracheal lymph node, transbronchial needle aspirate and endobronchial biopsy of the left upper lobe endobronchial irregularities with Dr. Huizar. W e are waiting for except dense at [facility] for discharge plan. Anticipate discharge tomorrow. Objective - Vital Signs Vital signs: Vital Signs Temp 98.4 F 06/01/19 03:49 Pulse 91 06/01/19 03:49 Resp 16 06/01/19 03:49 BP 118/71 06/01/19 03:49 Pulse Ox 93 L 06/01/19 03:49 Intake & Output 05/31/19 06/01/1919 18:59 06:59 18:59 Intake Total 50 200 Output Total 250 Balance -200 200 Weight 81.647 kg Intake: Intake, IV Titration 50 Amount cefTRIAXone 1 gm In 50 Sodium Chloride 0.9% 50 ml @ 100 mls/hr IVPB Q24HR [facility] Rx#:[id number] Oral 200 Output: Urine 250 Other: Voiding Method Bedside Commode Bedside Commode Bedside Commode Diaper Diaper Incontinent Incontinent # Voids 1 1 - Exam Review of systenms Constitutional: Denies chills, Denies fever, Denies lethargy, Denies malaise, Denies poor appetite, Denies weakness, Denies weight loss, reports chronic pain Eyes: denies decreased vision, denies diplopia, denies discharge, denies pain Ears: deny: decreased hearing Ears, nose, mouth and throat: Denies dental pain, Denies headache, Denies nasal discharge, Denies nose pain Cardiovascular: Denies chest pain, Denies decreased exercise tolerance, Denies edema, Denies high blood pressure, Denies irregular heart beat, Denies palpitations, Denies paroxysmal nocturnal dyspnea, Denies rapid heart beat, Denies shortness of breath Respiratory: Denies congestion, Denies cough, Denies cough with sputum, Denies dyspnea, Denies home oxygen, Denies wheezing Gastrointestinal: Denies abdominal pain, Denies change in bowel habits, Denies coffee ground emesis, Denies early satiety, Denies excessive gas, Denies heartburn, Denies hematemesis, Denies hematochezia, Denies loss of appetite, Denies nausea, Denies vomiting Genitourinary: Denies dysuria, Denies flank pain, Denies kidney stones, Denies menorrhagia, Denies urgency, Denies urinary frequency Musculoskeletal: Denies gait dysfunction, Denies limitation of motion, endorses muscle pain and diffuse pain throughout body with generalized weakness Integumentary: Denies rash, Denies wounds, Denies brittle nails, Denies change in hair/nails, Denies darkening of skin Neurological: Reports balance difficulties, Denies change in speech, Denies double vision, Denies gait dysfunction, Denies loss of vision, reports motor disturbance, Denies numbness, Denies paralysis, Denies paresthesias, Denies seizures Psychiatric: Denies anxiety, Denies depression Endocrine: Denies excessive sweating, Denies excessive thirst, Denies high blood sugars, Denies palpitations Hematologic/Lymphatic: Denies easy bruising, Denies lymphadenopathy - Constitutional General appearance: cooperative, no acute distress, obese, resting in bed - EENT Eyes: anicteric sclerae, PERRLA, normal appearance ENT: hearing grossly normal - Neck Neck: no lymphadenopathy, normal ROM, no other, no rigidity, no stridor, no thyromegaly - Respiratory Respiratory: bilateral: CTA, negative: diminished, dullness, rales, rhonchi - Cardiovascular Rhythm: regular Heart sounds: normal: S1, S2 Abnormal Heart Sounds: no systolic murmur, no diastolic murmur, no rub, no S3 Gallop, no S4 Gallop, no click, no other - Gastrointestinal General gastrointestinal: normal bowel sounds, soft - Integumentary Integumentary: no rash - Neurologic Neurologic: CNII-XII intact - Musculoskeletal Musculoskeletal: Generalized weakness weakness more pronounced in the lower extremity compared to upper extremity - Psychiatric Psychiatric: A&O x's 3, appropriate affect - Labs CBC & Chem 7: 05/30/19 06:52 05/30/19 06:52 Assessment and Plan Plan: 1. Acute urinary tract infection, completed course of IV Rocephin. Urine culture remains pending. 2. Lung mass, spiculated left mid lung lobe, 3.3 x 4.4 cm new, patient was seen by Dr. Huizar, and Dr. Newell, patient would need to be biopsied for this lung mass, tobacco cessation was requested to be done permanently, outpatient PET scan canceled due to insurance coverage issues. Bronchoscopy and biopsy completed. Patient will be resumed on Xarelto. 3. Weakness upper extremity right side, weakness lower extremity left side, MRI of the brain to be done and MRI of the cervical spine and thoracic spine as above added by Dr. Hebert, patient would have an EMG to be done as an outpatient, was set up to see Dr. Pardo as an outpatient 4. Degenerative disc disease of lumbar spine and stenosis most severe at the left L5-S1. Multilevel disc herniation of the cervical spine status post cervical epidural steroid injection C7-T1 on April [address] Vaz, pain management. Continue Lyrica 25 mg twice daily. Patient has seen Dr. Conway and outpatient, no surgical intervention recommended, he requested a neurologist to see the patient, EMG of the upper extremity to be done, MRI of the brain to evaluate for brain metastases as well as noted degenerative disease of the brain 5. History of breast cancer 20 years ago status post lumpectomy and radiation, stable. 6. Hypertension. Continue lisinopril 10 mg at bedtime, Lopressor 25 mg twice daily. 7. Hyperlipidemia. Continue atorvastatin 10 mg at bedtime. 8. History of pulmonary embolus 4 years ago on Xarelto. 9. Fibromyalgia. Continue current pain management. 10. Migraine headaches, stable. 11. Irritable bowel syndrome. Continue Lomotil as needed. 12. Recurrent depression. Continue Cymbalta 60 mg at bedtime, trazodone 50 mg at bedtime. 13. Remote history of tobacco use and dependence. 14. Daily alcohol use. No history of seizure activity. Monitor for DTs. 15. DVT prophylaxis. Xarelto 16. GI prophylaxis and gastroesophageal reflux disease. Protonix. Discharge plan: Insurance authorization for subacute rehab has been obtained. Awaiting ECF acceptance. Impression and plan of care have been directed as dictated by the signing physician. Tia Harley nurse practitioner acting as scribe for signing physician.
[2019-06-01] MEDS ORDERED: RIVAROXABAN 15 MG TAB PO SCH (17:30)
[2019-06-01] MEDS: CHOLECALCIFEROL 1,000 UNIT TAB PO SCH (22:18)
[2019-06-01] MEDS: traZODone HCL 50 MG TAB PO PRN (22:19)
[2019-06-01] MEDS: ATORVASTATIN 10 MG TAB PO SCH (22:20)
[2019-06-01] MEDS: PANTOPRAZOLE 40 MG TABLET PO SCH (22:20)
[2019-06-01] MEDS: DULoxetine HCL 60 MG CAPSULE.DR PO SCH (22:20)
[2019-06-01] MEDS: CYANOCOBALAMIN-FA-PYRIDOXINE 1 EACH TAB PO SCH (22:20)
[2019-06-02] MEDS: MORPHINE SULFATE 4 MG/ML SYRINGE IV PRN ×2 (00:56→07:51)
[2019-06-02 06:10] VITALS: RESP 16
[2019-06-02] MEDS: METOPROLOL TARTRATE 25 MG TAB PO SCH (07:50)
[2019-06-02] MEDS: PREGABALIN 50 MG CAP PO SCH (07:51)
[2019-06-02] MEDS: MAGNESIUM OXIDE 400 MG TAB PO SCH (07:51)
[2019-06-02] MEDS ORDERED: ALPRAZolam 0.25 MG TAB PO PRN (10:14)
[2019-06-02 12:22] VITALS: BP 141/94; PULSE 95; TEMP 98.3
--- NOTE | 2019-06-02 13:00 | P.PN ---
Subjective Progress Note Date: 06/02/19 Principal diagnosis: Left upper lobe mass and mediastinal adenopathy The patient is seen today 06/02/2019 in follow-up on the regular medical floor. She is currently awake and alert in no acute distress. Resting comfortably in bed. No worsening shortness of breath, cough or congestion. No hemoptysis. Yesterday she did undergo a flexible bronchoscopy, transbronchial needle aspirate of right paratracheal lymph node, transbronchial needle aspirate and endobronchial biopsy of the left upper lobe endobronchial irregularities by Dr. Hopkins. Pathology is pending. She has been resumed on her Xarelto. The plan is for discharge to [facility] for subacute rehabilitation. Objective - Vital Signs Vital signs: Vital Signs Temp 98.3 F 06/02/19 12:12 Pulse 95 06/02/19 12:12 Resp 16 06/02/19 12:12 BP 141/94 06/02/19 12:12 Pulse Ox 95 06/02/19 12:12 Intake & Output 06/01/19 06/02/19 06/02/19 18:59 06:59 18:59 Intake Total 250 590 Output Total 300 Balance 250 290 Intake: IV 200 Intake, IV Titration 50 Amount cefTRIAXone 1 gm In 50 Sodium Chloride 0.9% 50 ml @ 100 mls/hr IVPB Q24HR [facility] Rx#:[id number] Oral 590 Output: Urine 150 Post Void Residual 150 Other: Voiding Method Bedside Commode Bedside Commode Diaper Diaper Incontinent Incontinent # Voids 2 2 - Exam GENERAL EXAM: Alert, pleasant 73-year-old female patient, fairly comfortable in no apparent distress. On room air. HEAD: Normocephalic. EYES: Normal reaction of pupils, equal size. NOSE: Clear with pink turbinates. THROAT: No erythema or exudates. NECK: No masses, no JVD. CHEST: No chest wall deformity. LUNGS: Equal air entry with few scattered rhonchi. CVS: S1 and S2 normal with no audible murmur, regular rhythm. ABDOMEN: No hepatosplenomegaly, normal bowel sounds, no guarding or rigidity. SPINE: No scoliosis or deformity SKIN: No rashes CENTRAL NERVOUS SYSTEM: No focal deficits, tone is normal in all 4 extremities. EXTREMITIES: There is no peripheral edema. No clubbing, no cyanosis. Peripheral pulses are intact. - Labs CBC & Chem 7: 09/01/19 06:52 05/30/19 06:52 Assessment and Plan Assessment: Impression: 1. Acute urinary tract infection, treated with IV Rocephin 2. Lung mass, spiculated left mid lung lobe, 3.3 x 4.4 along with mediastinal lymphadenopathy and a high suspicion for underlying malignancy. Flexible bronchoscopy, transbronchial needle aspirate of right paratracheal lymph node, transbronchial needle aspirate and endobronchial biopsy of the left upper lobe endobronchial irregularities performed on 06/01/2019. Pathology pending. 3. Significant mobility and gait and the patient has not walked for the past 4- 1/2 months. 4. Degenerative disc disease of lumbar spine and stenosis most severe at the left L5-S1. Multilevel disc herniation of the cervical spine status post cervical epidural steroid injection C7-T1 on April [address] Vaz, [place]. Continue Lyrica 25 mg twice daily. Patient has seen Dr. Conway and outpatient, no surgical intervention recommended, he requested a neurologist to see the patient, EMG of the upper extremity to be done, MRI of the brain to evaluate for brain metastases as well as noted degenerative disease of the brain 5. History of breast cancer 20 years ago status post lumpectomy and radiation, stable. 6. Hypertension. 7. Hyperlipidemia. 8. History of pulmonary embolus 4 years ago on Xarelto. Currently off anticoagulation pending bronchoscopy 9. Fibromyalgia. Continue current pain management. 10. Migraine headaches, stable. 11. Irritable bowel syndrome. 12. depression. 13. Remote history of tobacco use and dependence. 14. Daily alcohol use. Plan: The patient was seen and evaluated by Dr. Hopkins. She is cleared for discharge from the pulmonary standpoint. Pathology is pending and further recommendations will be made based on the findings per oncology. Follow-up in our office with Dr. Gallardo in 1-2 weeks' time. I, the cosigning physician, performed a history & physical examination of the patient. Lungs sounds with few scattered rhonchi. Maintaining good O2 saturations in the 90s on room air. I discussed the assessment and plan of care with my nurse practitioner, Mandie Ghosh. I attest to the above note as dictated by her.
== END 2019-06-02 13:30 | DRG 690 ==
LOC: EC 17:41 → 3NMEDONC 05-25 00:42
PROVIDERS: ADMIT Family Medicine; ATTEND Family Medicine
PROC: 0BDG8ZX Extraction of Left Upper Lung Lobe, Via Natural or Artificial Opening Endoscopic, Diagnostic (ICD-10-PCS; principal; 2019-06-01 07:30)
PROC: 07D78ZX Extraction of Thorax Lymphatic, Via Natural or Artificial Opening Endoscopic, Diagnostic (ICD-10-PCS; principal; 2019-06-01 07:30)
DX: N39.0 Urinary tract infection, site not specified (principal); N17.9 Acute kidney failure, unspecified; D80.1 Nonfamilial hypogammaglobulinemia; E87.2 Acidosis; F33.9 Major depressive disorder, recurrent, unspecified; J90 Pleural effusion, not elsewhere classified; J98.11 Atelectasis; C34.90 Malignant neoplasm of unspecified part of unspecified bronchus or lung; D35.02 Benign neoplasm of left adrenal gland; E78.5 Hyperlipidemia, unspecified; F41.9 Anxiety disorder, unspecified; G43.909 Migraine, unspecified, not intractable, without status migrainosus; G89.4 Chronic pain syndrome; I10 Essential (primary) hypertension; K21.9 Gastro-esophageal reflux disease without esophagitis; K58.9 Irritable bowel syndrome, unspecified; K76.0 Fatty (change of) liver, not elsewhere classified; M47.816 Spondylosis without myelopathy or radiculopathy, lumbar region; M48.02 Spinal stenosis, cervical region; M48.061 Spinal stenosis, lumbar region without neurogenic claudication; M50.21 Other cervical disc displacement, high cervical region; M50.221 Other cervical disc displacement at C4-C5 level; M50.222 Other cervical disc displacement at C5-C6 level; M50.223 Other cervical disc displacement at C6-C7 level; M50.31 Other cervical disc degeneration, high cervical region; M50.321 Other cervical disc degeneration at C4-C5 level; M51.34 Other intervertebral disc degeneration, thoracic region; M51.36 Other intervertebral disc degeneration, lumbar region; M79.7 Fibromyalgia; R29.6 Repeated falls; W19.XXXA Unspecified fall, initial encounter; Z79.01 Long term (current) use of anticoagulants; Z79.899 Other long term (current) drug therapy; Z80.0 Family history of malignant neoplasm of digestive organs; Z80.8 Family history of malignant neoplasm of other organs or systems; Z82.49 Family history of ischemic heart disease and other diseases of the circulatory system; Z85.3 Personal history of malignant neoplasm of breast; Z86.711 Personal history of pulmonary embolism; Z87.891 Personal history of nicotine dependence; Z92.3 Personal history of irradiation; Z90.49 Acquired absence of other specified parts of digestive tract; Z98.42 Cataract extraction status, left eye; Z98.41 Cataract extraction status, right eye
CPT/HCPCS: 31625; 31633; 36415; 70450; 70553; 71046; 71260; 72156; 72157; 73521; 80053; 81001; 82550; 82607; 83605; 83625; 83735; 84165; 84443; 84446; 84484; 85025; 85610; 85730; 86038; 86334; 87077; 87086; 87186; 88173; 88305; 88341; 88342; 93005; 94760; 96360; 99285

== ENCOUNTER → 2019-06-19 | Outpatient (CLI) | payer MEDICARE ==
--- NOTE | 2019-06-23 17:32 | PE ---
Nuclear medicine PET/CT HISTORY: Lung carcinoma, initial Patient received 11.5 mCi F-18 FDG intravenously in delayed scanning was performed from the skull bas e to the mid thighs. An attenuation correction CT, localization CT scan was also performed. Correlation to MR brain 05/26/2019, CT chest 05/24/2019 Neck and chest: There is no evident supraclavicular adenopathy. Muscular uptake noted on the left at the level of the carotid artery. No cervical adenopathy. The retrocaval pretracheal kaylen enlargement shows associated hypermetabolic uptake, SUV is 8.4. Some small superior mediastinal nodes are present, prevascular nodes show hypermetabolic uptake, SUV 4.5. Aorticopulmonary window nodes are enlarged and shows associated uptake, SUV is 7.7. There is left hi lar uptake, SUV 6.9. Left upper lobe lung mass measures approximately 2.7 cm and shows associated hyp ermetabolic uptake, SUV is 4.9. No evident pleural or pericardial effusion. ABDOMEN: No evident adrenal mass. No liver mass or nodule peritoneal uptake. Osseous structures show degenerative disc change, facet arthropathy in the lower lumbar spine, there is a spinal curvature. No suspicious hypermetabolic uptake. The small focus of abnormal enhancement in the brain MRI in the right cerebellar hemisphere not defin itely identified on this exam. IMPRESSION: Metastatic disease.
== END | disposition home or self-care (01) ==
LOC: RADPETMAIN 10:45
PROVIDERS: ATTEND Internal Medicine Hematology & Oncology
DX: C34.12 Malignant neoplasm of upper lobe, left bronchus or lung (principal)
CPT/HCPCS: 78815; A9552